=== PATIENT | male | born 1960 | race Caucasian/White ===

== ENCOUNTER 2019-10-22 12:03 | Inpatient (IN) | payer OTHER ==
[2019-10-22] VITALS (9 sets, daily range): BP systolic 119–165; BP diastolic 69–106; BMI 29.3
[~2019-10-22] VITALS: Ht 193 cm; Wt 109.0 kg
[2019-10-22] MEDS ORDERED: FLUTICASONE PRO16 GM NASAL (12:18)
[2019-10-22] MEDS ORDERED: ZYRTEC10 MG PO (12:18)
[2019-10-22 12:56] LABS: CALC OSMOLALITY 280 mosm/kg (275-300); CARBON DIOXIDE 23.8 mmol/L (21.0-32.0); CHLORIDE - SERUM 105 mmol/L (98-107); CREATININE - SERUM 0.8 mg/dL (0.6-1.3); GLUCOSE 125 mg/dL (74-106); HEMATOCRIT 38.4 % (42.0-54.0); HEMOGLOBIN 13.3 g/dL (13.5-17.5); LYMPHOCYTES 27.5 % (15-50); MCHC 34.6 g/dL (31.0-37.0); MEAN PLATELET VOLUME 9.8 fL (7.4-10.4); NEUTROPHILS 61.7 % (40-80); PLATELET COUNT 141 10x3/uL (130-400); POTASSIUM - SERUM 4.3 mmol/L (3.5-5.1); RBC 3.59 10x6/uL (4.20-6.10); RDW 16.6 % (11.5-14.5); SODIUM 140 mmol/L (136-145); UREA NITROGEN 14 mg/dL (7-18); WBC 8.8 10x3/uL (4.8-10.8); eGFR NON AFRICAN AMERICAN > 90 mL/min (90-120)
[2019-10-22 13:03] LABS: ALBUMIN 2.8 g/dL (3.4-5.0); ALKALINE PHOSPHATASE 173 U/L (30-120); ALT (SGPT) 80 U/L (10-68); PROTEIN - SERUM 7.3 g/dL (6.4-8.2)
[2019-10-22 13:41] LABS: AMYLASE - SERUM 46 U/L (25-115); CKMB 0.3 U/L (0.0-3.6); CREATINE KINASE 63 UL (21-232); LIPASE 176 U/L (73-393); MAGNESIUM - SERUM 1.7 mg/dL (1.8-2.4); TROPONIN-I < 0.017 ng/mL (0.000-0.060)
[2019-10-22 14:58] LABS: INR 1.49 (0.85-1.17); PROTIME 17.9 SECONDS (11.6-15.0)
[2019-10-22 18:06] LABS: HEMATOCRIT 37.9 % (42.0-54.0)
--- NOTE | 2019-10-22 19:00 | NUR ---
SHIFT ASSESSMENT COMPLETED. PT CARE ASSUMED. MONITORS ON AND WORKING, VITALS STABLE. PT AWAKE AND ALERT, DENIES ANY COMPLAINT OF PAIN OR DISCOMFORT AT THIS TIME. CALL LIGHT WITHIN REACH, WILL CONTINUE TO OBSERVE.
[2019-10-22 22:06] LABS: HEMATOCRIT 37.6 % (42.0-54.0); HEMOGLOBIN 12.8 g/dL (13.5-17.5)
--- NOTE | 2019-10-22 23:00 | NUR ---
PT UP TO BEDSIDE COMMODE, LARGE DARK LOOSE STOOL. PT ASSISTED BACK INTO BED, MONITORS ON AND WORKING, VITALS STABLE. CALL LIGHT WITHIN REACH, WILL CONTINUE TO OBSERVE. SEE FLOW SHEET FOR FURTHER DETAILS, WILL CONTINUE TO OBSERVE.
[2019-10-23] VITALS (14 sets, daily range): BP systolic 128–156; BP diastolic 72–102; Ht 193 cm; Wt 109.0 kg
--- NOTE | 2019-10-23 03:00 | NUR ---
PT LYING IN BED RESTING, MONITORS ON AND WORKING, VITALS STABLE. NO SIGNS/SYMPTOMS OF PAIN OR DISCOMFORT NOTED. NO N/V, NO BLEEDING. WILL CONTINUE TO OBSERVE.
[2019-10-23 04:16] LABS: % SATURATION 124 % (15-55); IRON 138 ug/dl (35-150); TOTAL IRON BIND CAPACITY 111 ug/dl (260-445)
--- NOTE | 2019-10-23 07:00 | NUR ---
ASSESSMENT COMPLETE PER FLOWSHEET. VOICES NO CO AT TIME. NPO FOR NOW. WILL CONTINUE TO MONITOR.
[2019-10-23 08:00] LABS: HEMATOCRIT 36.8 % (42.0-54.0); HEMOGLOBIN 12.5 g/dL (13.5-17.5); LYMPHOCYTES 12.6 % (15-50); MCH 34.6 pg (26.0-34.0); MCV 101.9 fL (80.0-100.0); MEAN PLATELET VOLUME 10.8 fL (7.4-10.4); NEUTROPHILS 79.1 % (40-80); PLATELET COUNT 96 10x3/uL (130-400); RBC 3.61 10x6/uL (4.20-6.10); RDW 21.9 % (11.5-14.5); WBC 7.4 10x3/uL (4.8-10.8)
[2019-10-23 08:03] LABS: CALCIUM 7.9 mg/dL (8.5-10.1); CARBON DIOXIDE 25.3 mmol/L (21.0-32.0); CHLORIDE - SERUM 109 mmol/L (98-107); POTASSIUM - SERUM 4.7 mmol/L (3.5-5.1); SODIUM 146 mmol/L (136-145); eGFR NON AFRICAN AMERICAN 81 mL/min (90-120)
[2019-10-23 08:05] LABS: CALC OSMOLALITY 298 mosm/kg (275-300); GLUCOSE 201 mg/dL (74-106); UREA NITROGEN 19 mg/dL (7-18)
[2019-10-23 08:09] LABS: ALBUMIN 2.8 g/dL (3.4-5.0); ALKALINE PHOSPHATASE 117 U/L (30-120); ALT (SGPT) 76 U/L (10-68); PHOSPHOROUS 2.9 mg/dL (2.5-4.9); PROTEIN - SERUM 6.6 g/dL (6.4-8.2)
[2019-10-23 08:10] LABS: MAGNESIUM - SERUM 2.2 mg/dL (1.8-2.4)
[2019-10-23 08:35] LABS: PLATELET ESTIMATE DECREASED
--- NOTE | 2019-10-23 09:00 | NUR ---
DR RIDDLE HERE OK FOR CLEAR LIQUIDS.
--- NOTE | 2019-10-23 12:00 | NUR ---
EATING JELLO. VOICES NO CO AT TIME. SR UP X 2.
--- NOTE | 2019-10-23 14:00 | NUR ---
TRANSFER ORDERS COMPLETE. VOICES NO CO TIME.
--- NOTE | 2019-10-23 17:41 | MORECARE ---
CASE MANAGEMENT DISCHARGE SUMMARY PATIENT: SID WOLF UNIT: [id number] ADM DATE: 10/22/19 AGE: 59 : 56 SEX: M ROOM/BED: D.2307 AUTHOR: GLENN,DOC PHYSICIAN: REFERRING PHYSICIAN: TOMMY WOODS MD DATE OF SERVICE: 10/23/19 Discharge Plan Patient Name: SID WOLF Facility: [facility]:[place] : 1960 Planned Disposition: Home Anticipated Discharge Date: Discharge Date: Expected LOS: Initial Reviewer: [email or web address] Initial Review Date: 10/22/2019 Generated: 10/23/19 6:41 pm Comments DCP- Discharge Planning Updated by [id number]: Charline Cm on 10/23/19 4:[address] Patient Name: SID WOLF Admission Status: Elective Accout number: [id number] Admission Date: 10-22-2019 : 1960 Admission Diagnosis: Attending: TOMMY WOODS Current LOS: 1 Anticipated DC Date: Planned Disposition: Home Primary Insurance: [employer]MINISTRATION Discharge Planning Comments: CM met with patient to complete initial dc planning assessment. CM educated patient on the CM role and verbal consent given by patient to complete assessment. Patient lives at with his . At discharge patient plans to return home and feels this is a safe discharge. CM discussed availability of home health, rehab services, and medical equipment. Patient denied known discharge needs at this time. CM will continue to follow and will assist as needed with dc plans/needs. Patient states that he has [employer]. Locate Technician: Charline Cm DCP- Discharge Planning Updated by [email or web address]: Charline Cm on 10/22/19 2:[address] [facility] states that the patient isn't showing in there system. CM will discuss with patient after he is more alert after sedation wears off. CM will continue to follow and assist as needed with discharge planning / needs. DCPIA - Discharge Planning Initial Assessment Updated by [id number]: Charline Cm on 10/23/19 5:38 pm * Is the patient Alert and Oriented? Yes * How many steps to enter\exit or inside your home? * PCP BRANDEN * Pharmacy [facility] * Preadmission Environment Home with Family * ADLs Independent * Equipment None * List name and contact numbers for known caregivers / representatives who currently or will assist patient after discharge: EDUARDO WOLF - SPOUSE - [phone] * Verbal permission to speak to the caregivers and representatives has been obtained from the patient. Yes * Community resources currently utilized None * Additional services required to return to the preadmission environment? No * Can the patient safely return to the preadmission environment? Yes * Has this patient been hospitalized within the prior 30 days at any hospital? No Patient Name: SID WOLF Page 20600 at 1741 All edits/amendments must be made on the electronic document DICTATION DATE: 10/23/191740 CUSTODIAN: ANGELES 10/23/191740 RPT#: [id number] DC DATE: STATUS: ADM IN [facility] [address] [place] [address] END OF REPORT
--- NOTE | 2019-10-23 17:58 | NUR ---
WATCHING TV. VOICES NO CO AT TIME.
[2019-10-23 18:19] LABS: HEMATOCRIT 33.5 % (42.0-54.0); HEMOGLOBIN 11.3 g/dL (13.5-17.5)
--- NOTE | 2019-10-23 18:54 | NUR ---
TRANSFER TO ROOM 2236. BATH GIVEN. IV RESITED TO L FA. IV TO R AC DCD WITH CATH INTACT.
[2019-10-24 01:42] VITALS: BP 131/78
[2019-10-24 05:14] LABS: BASOPHILS 0.3 % (0-2); EOSINOPHILS 1.4 % (0-7); HEMATOCRIT 30.8 % (42.0-54.0); HEMOGLOBIN 10.4 g/dL (13.5-17.5); IMMATURE GRANULOCYTES 0.2 % (0-5); LYMPHOCYTES 21.1 % (15-50); MCHC 33.8 g/dL (31.0-37.0); MCV 100.7 fL (80.0-100.0); MEAN PLATELET VOLUME 9.9 fL (7.4-10.4); MONOCYTES 11.5 % (2-11); NEUTROPHILS 65.5 % (40-80); PLATELET COUNT 95 10x3/uL (130-400); RBC 3.06 10x6/uL (4.20-6.10); RDW 20.2 % (11.5-14.5); WBC 8.6 10x3/uL (4.8-10.8)
[2019-10-24 06:14] LABS: ALBUMIN 2.3 g/dL (3.4-5.0); ALKALINE PHOSPHATASE 83 U/L (30-120); ALT (SGPT) 80 U/L (10-68); BILIRUBIN - TOTAL 3.75 mg/dL (0.2-1.3); CALC OSMOLALITY 279 mosm/kg (275-300); CALCIUM 7.4 mg/dL (8.5-10.1); CARBON DIOXIDE 26.2 mmol/L (21.0-32.0); CHLORIDE - SERUM 106 mmol/L (98-107); CREATININE - SERUM 0.8 mg/dL (0.6-1.3); GLUCOSE 113 mg/dL (74-106); MAGNESIUM - SERUM 2.1 mg/dL (1.8-2.4); PHOSPHOROUS 2.2 mg/dL (2.5-4.9); POTASSIUM - SERUM 3.7 mmol/L (3.5-5.1); PROTEIN - SERUM 5.6 g/dL (6.4-8.2); SODIUM 139 mmol/L (136-145); UREA NITROGEN 14 mg/dL (7-18); eGFR NON AFRICAN AMERICAN > 90 mL/min (90-120)
[2019-10-24 06:18] VITALS: BP 105/56
[2019-10-24 08:41] VITALS: BP 123/77
--- NOTE | 2019-10-24 09:16 | NUR ---
PT RESTING IN BED WITH EYES CLOSED. AWAKENS STAFF ENTERS ROOM. RESP EVEN AND UNLABORED. DENIES PAIN AT THIS TIME. IV TO LEFT AC WITH NS @ 125ML/HR INFUSING VIA PUMP, ALSO PROTONIX @ 10ML/HR. PT DENIES FURTHER NEEDS AT THIS TIME. CL WITHIN REACH. ENCOURAGED TO CALL WITH NEEDS. CONTINUE POC
[2019-10-24 12:25] VITALS: BP 122/79
[2019-10-24 17:29] VITALS: BP 125/82
[2019-10-24 18:07] LABS: HEMATOCRIT 36.5 % (42.0-54.0); HEMOGLOBIN 12.1 g/dL (13.5-17.5)
[2019-10-24 20:00] VITALS: BP 128/83
[2019-10-25 04:00] VITALS: BP 135/81
[2019-10-25 05:29] LABS: BASOPHILS 0.4 % (0-2); EOSINOPHILS 3.7 % (0-7); HEMATOCRIT 34.3 % (42.0-54.0); HEMOGLOBIN 11.5 g/dL (13.5-17.5); IMMATURE GRANULOCYTES 0.4 % (0-5); MCH 34.2 pg (26.0-34.0); MCHC 33.5 g/dL (31.0-37.0); MCV 102.1 fL (80.0-100.0); MEAN PLATELET VOLUME 10.1 fL (7.4-10.4); MONOCYTES 11.3 % (2-11); NEUTROPHILS 60.2 % (40-80); PLATELET COUNT 102 10x3/uL (130-400); RBC 3.36 10x6/uL (4.20-6.10); RDW 19.4 % (11.5-14.5); WBC 7.6 10x3/uL (4.8-10.8)
[2019-10-25 05:45] LABS: ALBUMIN 2.4 g/dL (3.4-5.0); ALKALINE PHOSPHATASE 96 U/L (30-120); ALT (SGPT) 94 U/L (10-68); BILIRUBIN - TOTAL 4.31 mg/dL (0.2-1.3); CALC OSMOLALITY 275 mosm/kg (275-300); CALCIUM 7.6 mg/dL (8.5-10.1); CARBON DIOXIDE 25.8 mmol/L (21.0-32.0); CHLORIDE - SERUM 106 mmol/L (98-107); CREATININE - SERUM 0.8 mg/dL (0.6-1.3); GLUCOSE 97 mg/dL (74-106); PHOSPHOROUS 2.5 mg/dL (2.5-4.9); POTASSIUM - SERUM 3.6 mmol/L (3.5-5.1); PROTEIN - SERUM 5.7 g/dL (6.4-8.2); SODIUM 139 mmol/L (136-145); eGFR NON AFRICAN AMERICAN > 90 mL/min (90-120)
[2019-10-25 05:46] LABS: UREA NITROGEN 8 mg/dL (7-18)
--- NOTE | 2019-10-25 07:50 | NUR ---
PT RESTING IN BED WATCHING TV. RESP EVEN AND UNLABORED. DENIES PAIN AT THIS TIME. PT ALERT AND ORIENTED X 4. PT VOICES WISHES TO GO HOME TODAY HE IS FEELING BETTER. IV TO LEFT WRIST WITH NS @ 125ML/HR INFUSING VIA PUMP. SALINE LOC TO LEFT FOREARM. SITES WITHOUT REDNESS OR EDEMA. PT DENIES FURTHER NEEDS AT THIS TIME. CL WITHIN REACH. ENCOURAGED TO CALL WITH NEEDS. CONTINUE POC
[2019-10-25] MEDS ORDERED: PROTONIX40 MG PO (09:25)
[2019-10-25 09:29] VITALS: BP 121/80
--- NOTE | 2019-10-25 10:53 | NUR ---
UPON ADMIT, PATIENT HAS NOT HAD A FLU SHOT. WHEN QUESTIONED FOR DISCHARGE, HE REFUSED IT.
--- NOTE | 2019-10-25 11:10 | NUR ---
discharge paperwork provided to pt. discussed s/s of illness when to return to ed, dr or contact pcp. pt voices understanding. educated pt regarding protonix, new prescription, discussing times and amounts to take daily. pt denies questions. saline loc d/c'd from left forearm and iv d/c'd from left wrist, caths intact. pt denies any questions or concerns at this time. awaiting ride for discharge.
[2019-10-25] MEDS ORDERED: LIBRIUM25 MG PO (11:14)
--- NOTE | 2019-10-25 11:41 | NUR ---
PT TAKEN OUT VIA W/C TO PRIVATE VEHICLE FOR DISCHARGE WITH ALL PERSONAL BELONGINGS.
--- NOTE | 2019-10-25 20:34 | MORECARE ---
CASE MANAGEMENT DISCHARGE SUMMARY PATIENT: SID WOLF UNIT: [id number] ADM DATE: 10/22/19 AGE: 59 : 56 SEX: M ROOM/BED: D.2236 AUTHOR: GLENN,DOC PHYSICIAN: REFERRING PHYSICIAN: TOMMY WOODS MD DATE OF SERVICE: 10/25/19 Discharge Plan Patient Name: SID WOLF Facility: [facility]:[place] : 1960 Planned Disposition: Home Anticipated Discharge Date: Discharge Date: 10/25/2019 Expected LOS: Initial Reviewer: [id number] Initial Review Date: 10/22/2019 Generated: 10/25/19 9:33 pm DCP- Discharge Planning Updated by [email or web address]: Charline Cm on 10/23/19 4:[address] Patient Name: SID WOLF Admission Status: Elective Accout number: [id number] Admission Date: 10-22-2019 : 1960 Admission Diagnosis: Attending: TOMMY WOODS Current LOS: 1 Anticipated DC Date: Planned Disposition: Home Primary Insurance: [employer]MINISTRATION Discharge Planning Comments: CM met with patient to complete initial dc planning assessment. CM educated patient on the CM role and verbal consent given by patient to complete assessment. Patient lives at with his . At discharge patient plans to return home and feels this is a safe discharge. CM discussed availability of home health, rehab services, and medical equipment. Patient denied known discharge needs at this time. CM will continue to follow and will assist as needed with dc plans/needs. Patient states that he has [employer]. Storage Administrator: Charline Cm DCP- Discharge Planning Updated by [id number]: Charline Cm on 10/22/19 2:[address] [facility] admission. [facility] states that the patient isn't showing in there system. CM will discuss with patient after he is more alert after sedation wears off. CM will continue to follow and assist as needed with discharge planning / needs. DCPIA - Discharge Planning Initial Assessment Updated by [email or web address]: Charline Cm on 10/23/19 5:38 pm * Is the patient Alert and Oriented? Yes * How many steps to enter\exit or inside your home? * PCP BRANDEN * Pharmacy [facility] * Preadmission Environment Home with Family * ADLs Independent * Equipment None * List name and contact numbers for known caregivers / representatives who currently or will assist patient after discharge: EDUARDO WOLF - SPOUSE - [phone] * Verbal permission to speak to the caregivers and representatives has been obtained from the patient. Yes * Community resources currently utilized None * Additional services required to return to the preadmission environment? No * Can the patient safely return to the preadmission environment? Yes * Has this patient been hospitalized within the prior 30 days at any hospital? No Last DP export: 10/23/19 4:41 p Patient Name: SID WOLF Page 08395 at 2034 All edits/amendments must be made on the electronic document DICTATION DATE: 10/25/192032 CATERING ADMINISTRATIVE ASSISTANT: ANGELES 10/25/192032 RPT#: [id number] DC DATE:10/25/19 STATUS: DIS IN [facility] [address] [place] [address] END OF REPORT
== END 2019-10-25 11:41 | disposition home or self-care (01) | DRG 432 ==
LOC: D.ER 12:03 → D.ICU 13:24 → D.MS 13:24
PROVIDERS: Family Medicine; Internal Medicine Gastroenterology; ADMIT Internal Medicine Nephrology; ATTEND Internal Medicine Nephrology
PROC: 0W3P8ZZ Control Bleeding in Gastrointestinal Tract, Via Natural or Artificial Opening Endoscopic (ICD-10-PCS; principal; 2019-10-22 14:00)
DX: K70.30 Alcoholic cirrhosis of liver without ascites (principal); I85.11 Secondary esophageal varices with bleeding; D62 Acute posthemorrhagic anemia; F10.29 Alcohol dependence with unspecified alcohol-induced disorder; E83.42 Hypomagnesemia

== ENCOUNTER 2019-11-03 17:22 | Inpatient (IN) | payer OTHER ==
[~2019-11-03] VITALS: Ht 193 cm; Wt 113.0 kg
[~2019-11-03 17:22] MED LIST: FLUTICASONE PRO16 GM NASAL; LIBRIUM25 MG PO; PROTONIX40 MG PO; ZYRTEC10 MG PO
[2019-11-03] MEDS ORDERED: FOLIC ACID1 MG PO (17:32)
[2019-11-03] MEDS ORDERED: VIT B 1 PO (17:32)
[2019-11-03 17:50] LABS: BASOPHILS 0.8 % (0-2); EOSINOPHILS 2.9 % (0-7); HEMATOCRIT 38.8 % (42.0-54.0); HEMOGLOBIN 13.1 g/dL (13.5-17.5); IMMATURE GRANULOCYTES 0.1 % (0-5); LYMPHOCYTES 21.6 % (15-50); MCH 35.5 pg (26.0-34.0); MCHC 33.8 g/dL (31.0-37.0); MCV 105.1 fL (80.0-100.0); MEAN PLATELET VOLUME 9.2 fL (7.4-10.4); MONOCYTES 9.7 % (2-11); NEUTROPHILS 64.9 % (40-80); PLATELET COUNT 183 10x3/uL (130-400); RBC 3.69 10x6/uL (4.20-6.10); RDW 18.9 % (11.5-14.5); WBC 7.2 10x3/uL (4.8-10.8)
[2019-11-03 18:05] LABS: CALC OSMOLALITY 272 mosm/kg (275-300); CALCIUM 8.2 mg/dL (8.5-10.1); CARBON DIOXIDE 25.8 mmol/L (21.0-32.0); CHLORIDE - SERUM 104 mmol/L (98-107); GLUCOSE 129 mg/dL (74-106); POTASSIUM - SERUM 3.8 mmol/L (3.5-5.1); SODIUM 137 mmol/L (136-145); UREA NITROGEN 5 mg/dL (7-18); eGFR NON AFRICAN AMERICAN 81 mL/min (90-120)
[2019-11-03 18:18] LABS: ALBUMIN 2.7 g/dL (3.4-5.0); ALKALINE PHOSPHATASE 137 U/L (30-120); ALT (SGPT) 63 U/L (10-68); AMYLASE - SERUM 33 U/L (25-115); BILIRUBIN - TOTAL 3.69 mg/dL (0.2-1.3); LIPASE 75 U/L (73-393); PRO BNP 125 pg/mL (0-125); PROTEIN - SERUM 6.6 g/dL (6.4-8.2); TROPONIN-I < 0.017 ng/mL (0.000-0.060)
[2019-11-03 19:42] LABS: BILIRUBIN NEGATIVE (NEGATIVE); GLUCOSE NEGATIVE (NEGATIVE); KETONE NEGATIVE (NEGATIVE); NITRITE NEGATIVE (NEGATIVE); SPECIFIC GRAVITY 1.015 (1.005-1.020); UROBILINOGEN NORMAL (NORMAL)
[2019-11-03 21:14] VITALS: BP 155/82
--- NOTE | 2019-11-03 22:01 | NUR ---
PT TO ROOM 2109 ACCOMPANIED BY HOSPITAL STAFF.
[2019-11-03 23:16] VITALS: BP 155/82; BMI 30.3
[2019-11-04 05:07] LABS: BASOPHILS 0.9 % (0-2); EOSINOPHILS 3.9 % (0-7); HEMATOCRIT 36.5 % (42.0-54.0); HEMOGLOBIN 12.3 g/dL (13.5-17.5); IMMATURE GRANULOCYTES 0.1 % (0-5); LYMPHOCYTES 23.1 % (15-50); MCH 34.7 pg (26.0-34.0); MCHC 33.7 g/dL (31.0-37.0); MEAN PLATELET VOLUME 9.6 fL (7.4-10.4); MONOCYTES 8.8 % (2-11); NEUTROPHILS 63.2 % (40-80); PLATELET COUNT 190 10x3/uL (130-400); RBC 3.54 10x6/uL (4.20-6.10); RDW 18.7 % (11.5-14.5); WBC 6.9 10x3/uL (4.8-10.8)
[2019-11-04 05:19] LABS: MCV 103.1 fL (80.0-100.0)
[2019-11-04 05:23] LABS: INR 1.9 (0.85-1.17); PROTIME 21.5 SECONDS (11.6-15.0)
[2019-11-04 05:24] LABS: CALC OSMOLALITY 268 mosm/kg (275-300); CALCIUM 7.9 mg/dL (8.5-10.1); CARBON DIOXIDE 25.9 mmol/L (21.0-32.0); CHLORIDE - SERUM 104 mmol/L (98-107); GLUCOSE 93 mg/dL (74-106); MAGNESIUM - SERUM 1.8 mg/dL (1.8-2.4); PHOSPHOROUS 3.2 mg/dL (2.5-4.9); POTASSIUM - SERUM 3.4 mmol/L (3.5-5.1); SODIUM 136 mmol/L (136-145); UREA NITROGEN 4 mg/dL (7-18); eGFR NON AFRICAN AMERICAN 81 mL/min (90-120)
[2019-11-04 08:22] VITALS: BP 116/78
[2019-11-04 12:18] VITALS: Ht 193 cm; Wt 113.0 kg
--- NOTE | 2019-11-04 12:38 | MORECARE ---
CASE MANAGEMENT DISCHARGE SUMMARY PATIENT: SID WOLF UNIT: [id number] ADM DATE: 11/03/19 AGE: 59 : 56 SEX: M ROOM/BED: D.2109 AUTHOR: MERRILL ELIZABETH PHYSICIAN: REFERRING PHYSICIAN: DANAY BLAIR MD DATE OF SERVICE: 11/04/19 Discharge Plan Patient Name: SID WOLF [facility] [facility] 1960 Planned Disposition: Intermediate Facility Anticipated Discharge Date: Discharge Date: Expected LOS: Initial Reviewer: [email or web address] Initial Review Date: 11/04/2019 Generated: 11/04/19 1:38 pm DCPIA - Discharge Planning Initial Assessment Updated by [email or web address]: Josh Quinteros on 11/04/19 12:35 pm * Is the patient Alert and Oriented? Yes * How many steps to enter\exit or inside your home? 2--I * PCP DR. OTERO * Pharmacy [facility] * Preadmission Environment Home with Family * ADLs Independent * Equipment Rolling Walker * Other Equipment ROLLATOR WALKER - NO MEDICAL EQUIPMENT PROVIDER PREFERENCE * List name and contact numbers for known caregivers / representatives who currently or will assist patient after discharge: EDUARDO WOLF, SPOUSE, * Verbal permission to speak to the caregivers and representatives has been obtained from the patient. Yes * Community resources currently utilized None * Please name any agencies selected above. NONE * Additional services required to return to the preadmission environment? Yes * Can the patient safely return to the preadmission environment? Yes * Has this patient been hospitalized within the prior 30 days at any hospital? Yes Patient Name: SID WOLF Page 19323 at 1238 All edits/amendments must be made on the electronic document DICTATION DATE: 11/04/19 1238 ASSOCIATE PROFESSOR OF PSYCHOLOGY: ANGELES 11/04/19 1238 RPT#: [id number] DC DATE: STATUS: ADM IN [facility] [address] [place] [address] END OF REPORT
--- NOTE | 2019-11-04 12:45 | MORECARE ---
CASE MANAGEMENT DISCHARGE SUMMARY PATIENT: SID WOLF UNIT: [id number] ADM DATE: 11/03/19 AGE: 59 : 56 SEX: M ROOM/BED: D.2106 AUTHOR: GLENN,DOC PHYSICIAN: REFERRING PHYSICIAN: DANAY BLAIR MD DATE OF SERVICE: 11/04/19 Discharge Plan Patient Name: SID WOLF Facility: [facility]:[place] : 1960 Planned Disposition: Prison Facility Anticipated Discharge Date: Discharge Date: Expected LOS: Initial Reviewer: [email or web address] Initial Review Date: 11/04/2019 Generated: 11/04/19 1:45 pm Comments DCP- Discharge Planning Updated by [id number]: Josh Quinteros on 11/04/19 11:[address] Patient Name: SID WOLF Admission Status: ER Accout number: [id number] Admission Date: 11-03-2019 : 1960 Admission Diagnosis: Attending: JOSE Current LOS: 1 Anticipated DC Date: Planned Disposition: Prison Facility Primary Insurance: [employer] PLANNED EXTERNAL PROVIDER PREFERENCE: [facility], SKILLED REHAB BED - Discharge Planning Comments: CM SPOKE TO PHYSICAL THERAPIST WHO INFORMED CM THAT PT NEEDS REHAB PLACEMENT. CM MET WITH PT IN ROOM TO DISCUSS DISCHARGE PLANNING AND NEEDS. PT REPORTS LIVING AT HOME INDEPENDENTLY WITH HIS . PT HAS ROLLATOR WALKER WITH NO MEDICAL EQUIPMENT PROVIDER PREFERENCE. PT HAS NO OUTSIDE SERVICES ASSISTING IN THE HOME. CM DISCUSSED AVAILABILITY OF HOME HEALTH, REHAB SERVICES AND MEDICAL EQUIPMENT. [facility] VERY CLOSE [facility] HIS HOME. CM DISCUSSED THAT PT CANNOT HAVE VISITORS AT ANY REHAB AT THIS TIME. PT REPORTS UNDERSTANDING. CM NOTIFIED PT'S SPOUSE VIA PHONE, , THAT IF ACCEPTED FOR REHAB, PT MAY NOT HAVE VISITORS DURING PLACEMENT AT [facility]. PT'S SPOUSE REPORTS UNDERSTANDING AND AGREEMENT. CM NOTIFIED [facility]ITA GENAO OF [facility] [place], , OF REHAB REFERRAL. CM FAXED REFERRAL TO [facility] [place] VIA [facility] AT [phone]. CM WAITING ADMISSION DETERMINATION FROM [facility]. Substitute Bus Driver: Josh Quinteros DCPIA - Discharge Planning Initial Assessment Updated by [email or web address]: Josh Quinteros on 11/04/19 12:35 pm * Is the patient Alert and Oriented? Yes * How many steps to enter\exit or inside your home? 2--I * PCP DR. OTERO * Pharmacy [facility] [address] * Preadmission Environment Home with Family * ADLs Independent * Equipment Rolling Walker * Other Equipment ROLLATOR WALKER - NO MEDICAL EQUIPMENT PROVIDER PREFERENCE * List name and contact numbers for known caregivers / representatives who currently or will assist patient after discharge: EDUARDO WOLF, SPOUSE, * Verbal permission to speak to the caregivers and representatives has been obtained from the patient. Yes * Community resources currently utilized None * Please name any agencies selected above. NONE * Additional services required to return to the preadmission environment? Yes * Can the patient safely return to the preadmission environment? Yes * Has this patient been hospitalized within the prior 30 days at any hospital? Yes Last DP export: 11/04/19 11:38 am Patient Name: SID WOLF Page 83452 at 1245 All edits/amendments must be made on the electronic document DICTATION DATE: 11/04/191244 MANAGEMENT PROFESSIONALS: ANGELES 11/04/19 1245 RPT#: [id number] DC DATE: STATUS: ADM IN [facility] [address] [place] [address] END OF REPORT
--- NOTE | 2019-11-04 12:58 | MORECARE ---
CASE MANAGEMENT DISCHARGE SUMMARY PATIENT: SID WOLF UNIT: [id number] ADM DATE: 11/03/19 AGE: 59 : 56 SEX: M ROOM/BED: D.2106 AUTHOR: GLENN,DOC PHYSICIAN: REFERRING PHYSICIAN: DANAY BLAIR MD DATE OF SERVICE: 11/04/19 Discharge Plan Patient Name: SID WOLF Facility: [facility]:[place] : 1960 Planned Disposition: Intermediate Facility Anticipated Discharge Date: Discharge Date: Expected LOS: Initial Reviewer: [email or web address] Initial Review Date: 11/04/2019 Generated: 11/04/19 1:57 pm Comments DCP- Discharge Planning Updated by [email or web address]: Josh Quinteros on 11/04/19 11:[address] Patient Name: SID WOLF Admission Status: ER Accout number: [id number] Admission Date: 11-03-2019 : 1960 Admission Diagnosis: Attending: JOSE Current LOS: 1 Anticipated DC Date: Planned Disposition: Intermediate Facility Primary Insurance: [employer] PLANNED EXTERNAL PROVIDER PREFERENCE: [facility], SKILLED REHAB BED - Discharge Planning Comments: CM SPOKE TO PHYSICAL THERAPIST WHO INFORMED CM THAT PT NEEDS REHAB PLACEMENT. CM MET WITH PT IN ROOM TO DISCUSS DISCHARGE PLANNING AND NEEDS. PT REPORTS LIVING AT HOME INDEPENDENTLY WITH HIS . PT HAS ROLLATOR WALKER WITH NO MEDICAL EQUIPMENT PROVIDER PREFERENCE. PT HAS NO OUTSIDE SERVICES ASSISTING IN THE HOME. CM DISCUSSED AVAILABILITY OF HOME HEALTH, REHAB SERVICES AND MEDICAL EQUIPMENT. [facility] HIS HOME. CM DISCUSSED THAT PT CANNOT HAVE VISITORS AT ANY REHAB AT THIS TIME. PT REPORTS UNDERSTANDING. CM NOTIFIED PT'S SPOUSE VIA PHONE, , THAT IF ACCEPTED FOR REHAB, PT MAY NOT HAVE VISITORS DURING PLACEMENT AT [facility]. PT'S SPOUSE REPORTS UNDERSTANDING AND AGREEMENT. CM NOTIFIED DONITA GENAO OF [facility], , OF REHAB REFERRAL. CM FAXED REFERRAL TO [facility]IA [facility] AT [phone]. CM WAITING ADMISSION DETERMINATION FROM [facility]. Woods Overseer: Josh Quinteros DCPIA - Discharge Planning Initial Assessment Updated by [email or web address]: Josh Quinteros on 11/04/19 12:35 pm * Is the patient Alert and Oriented? Yes * How many steps to enter\exit or inside your home? 2--I * PCP DR. OTERO * Pharmacy [facility] [address] * Preadmission Environment Home with Family * ADLs Independent * Equipment Rolling Walker * Other Equipment ROLLATOR WALKER - NO MEDICAL EQUIPMENT PROVIDER PREFERENCE * List name and contact numbers for known caregivers / representatives who currently or will assist patient after discharge: EDUARDO WOLF, SPOUSE, * Verbal permission to speak to the caregivers and representatives has been obtained from the patient. Yes * Community resources currently utilized None * Please name any agencies selected above. NONE * Additional services required to return to the preadmission environment? Yes * Can the patient safely return to the preadmission environment? Yes * Has this patient been hospitalized within the prior 30 days at any hospital? Yes External Providers External Provider: [facility] Next Contact Date: 11/04/2019 Service Request Date: Service Type: Resolution: Reviewer: Comments: Coverage Notice Reviewer: [id number] - Josh Quinteros Notice Issued Date-Time: 11/04/2019 11:05 Notice Type: Patient Choice Letter Notice Delivered To: Patient Relationship to Patient: Mill Laborer Name: Delivery Method: HAND - Hand Delivered Laura Days: Prior Verbal Notification: Recipient Understood Notice: Yes Recipient Signature: Yes Med Rec Note Co-signed by Attending: Coverage Notice Comment: [facility] Last DP export: 11/04/19 11:45 am Patient Name: SID WOLF Page 69039 at 1258 All edits/amendments must be made on the electronic document DICTATION DATE: 11/04/19 1258 TOWN CLERK: ANGELES 11/04/19 1254 RPT#: [id number] DC DATE: STATUS: ADM IN [facility] [address] [place] [address] END OF REPORT
--- NOTE | 2019-11-04 14:00 | NUR ---
CALLED IR FOR UPDATE REGARDING PLAN FOR PROCEDURE. NO ANSWERS OBTAINED.
[2019-11-04 14:58] VITALS: BP 110/67
--- NOTE | 2019-11-04 16:00 | NUR ---
ALERT AND ORIENTED X4. SITTING UP IN BED. CONSENTS FOR PROCEDURE SIGNED ON CHART. TAKEN TO PROCEDURE VIA BED. CONTINUE PLAN OF CARE AND SAFETY PRECAUTIONS.
[2019-11-04 16:58] VITALS: BP 126/76
[2019-11-04 17:13] VITALS: BP 126/76
--- NOTE | 2019-11-04 17:13 | NUR ---
RETURN BACK TO ROOM VIA BED FROM PROCEDURE. RT FLANK INCISION CLEAN DRY INTACT. FREE FROM BLEEDING. BP-126/76, HR-81, R-16, O2-94% RA. DINNER TRAY ORDERED. DENIES ANY OTHER NEEDS AT THIS TIME. CONTINUE PLAN OF CARE AND SAFETY PRECAUTIONS.
[2019-11-04 17:28] VITALS: BP 127/75
[2019-11-04 20:43] VITALS: BP 96/55
--- NOTE | 2019-11-05 00:53 | NUR ---
RESTING WITH EYES CLOSED, RESPERATIONS EVEN, NO S/S DISTRESS NOTED.
--- NOTE | 2019-11-05 07:10 | NUR ---
REPORT RECEIVED FROM FOOD AND NUTRITION SERVICES ASSISTANT AND PATIENT CARE ASSUMED. PATIENT LAYING IN BED AWAKE, ALERT AND ORIENTED X 4. PATIENT IS STABLE AND VSS. PATIENT DENIES ANY NEEDS OR PAIN. WILL CONTINUE WITH PLAN OF CARE. SR UPX 2 BED IN LOW POSITION AND CALL LIGHT IN REACH.
[2019-11-05 09:42] VITALS: BP 104/62
--- NOTE | 2019-11-05 09:53 | NUR ---
ADMINISTERED MEDICATION, NO DIFFICULTY SWALLOWING. PT RESTING COMFORTABLY IN BED. DENIES ANY NEEDS AT THIS TIME. WILL CONTINUE TO MONITOR.
--- NOTE | 2019-11-05 12:27 | NUR ---
PT IS RESTING COMFORTABLY IN BED, HAD BRIEF MOMENT OF CONFUSION. PT LOC IS STABLE. DENIES ANY NEEDS. CALL LIGHT WITHIN REACH. WILL CONTINUE TO MONITOR.
--- NOTE | 2019-11-05 13:20 | NUR ---
OT NOTE: PT REPORTS THAT HE FEELS MUCH BETTER TODAY. AMB IN HALLWAY WITH MIN ASSIST, GAIT BELT, AND WALKER. PTS BALANCE MUCH BETTER TODAY VS YESTERDAY; AMB GREATER THAN 100 FT TO IMPROVE FUNCTIONAL ENDURANCE AND BALANCE. ABLE TO PERFORM TOILETING WITH SBA AND USE OF WALKER; ABLE TO SUKHJINDER GOWN AND SHOES WITH SET UP. BED MOB INDEP. [phone]
[2019-11-05] MEDS ORDERED: LASIX40 MG PO (13:45)
[2019-11-05] MEDS ORDERED: ALDACTONE25 MG PO (13:45)
[2019-11-05] MEDS ORDERED: K-DUR20 MEQ PO (13:45)
--- NOTE | 2019-11-05 14:24 | MORECARE ---
CASE MANAGEMENT DISCHARGE SUMMARY PATIENT: SID WOLF UNIT: [id number] ADM DATE: 11/04/19 AGE: 59 : 56 SEX: M ROOM/BED: D.2102 AUTHOR: GLENN,DOC PHYSICIAN: REFERRING PHYSICIAN: DANAY BLAIR MD DATE OF SERVICE: 11/05/19 Discharge Plan Patient Name: SID WOLF Facility: [facility]:[place] : 1960 Planned Disposition: Custodial Facility Anticipated Discharge Date: Discharge Date: Expected LOS: Initial Reviewer: [email or web address] Initial Review Date: 11/04/2019 Generated: 11/05/19 3:23 pm DCP- Discharge Planning Updated by [email or web address]: Josh Quinteros on 11/04/19 11:[address] Patient Name: SID WOLF Admission Status: ER Accout number: [id number] Admission Date: 11-03-2019 : 1960 Admission Diagnosis: Attending: JOSE Current LOS: 1 Anticipated DC Date: Planned Disposition: Custodial Facility Primary Insurance: [employer] PLANNED EXTERNAL PROVIDER PREFERENCE: [facility], SKILLED REHAB BED - Discharge Planning Comments: CM SPOKE TO PHYSICAL THERAPIST WHO INFORMED CM THAT PT NEEDS REHAB PLACEMENT. CM MET WITH PT IN ROOM TO DISCUSS DISCHARGE PLANNING AND NEEDS. PT REPORTS LIVING AT HOME INDEPENDENTLY WITH HIS . PT HAS ROLLATOR WALKER WITH NO MEDICAL EQUIPMENT PROVIDER PREFERENCE. PT HAS NO OUTSIDE SERVICES ASSISTING IN THE HOME. CM DISCUSSED AVAILABILITY OF HOME HEALTH, REHAB SERVICES AND MEDICAL EQUIPMENT. [facility] HIS HOME. CM DISCUSSED THAT PT CANNOT HAVE VISITORS AT ANY REHAB AT THIS TIME. PT REPORTS UNDERSTANDING. CM NOTIFIED PT'S SPOUSE VIA PHONE, , THAT IF ACCEPTED FOR REHAB, PT MAY NOT HAVE VISITORS DURING PLACEMENT AT [facility]. PT'S SPOUSE REPORTS UNDERSTANDING AND AGREEMENT. CM NOTIFIED DONITA GENAO OF [facility], , OF REHAB REFERRAL. CM FAXED REFERRAL TO [facility] VIA [facility] AT [phone]. CM WAITING ADMISSION DETERMINATION FROM [facility]. Recruitment Specialist: Josh Quinteros DCPIA - Discharge Planning Initial Assessment Updated by [email or web address]: Josh Quinteros on 11/04/19 12:35 pm * Is the patient Alert and Oriented? Yes * How many steps to enter\exit or inside your home? 2--I * PCP DR. OTERO * Pharmacy [facility] ON [address] * Preadmission Environment Home with Family * ADLs Independent * Equipment Rolling Walker * Other Equipment ROLLATOR WALKER - NO MEDICAL EQUIPMENT PROVIDER PREFERENCE * List name and contact numbers for known caregivers / representatives who currently or will assist patient after discharge: EDUARDO WOLF, SPOUSE, * Verbal permission to speak to the caregivers and representatives has been obtained from the patient. Yes * Community resources currently utilized None * Please name any agencies selected above. NONE * Additional services required to return to the preadmission environment? Yes * Can the patient safely return to the preadmission environment? Yes * Has this patient been hospitalized within the prior 30 days at any hospital? Yes External Providers External Provider: [facility] Next Contact Date: Service Request Date: Service Type: Resolution: Reviewer: Comments: Coverage Notice Reviewer: [email or web address] - Josh Quinteros Notice Issued Date-Time: 11/04/2019 11:05 Notice Type: Patient Choice Letter Notice Delivered To: Patient Relationship to Patient: Service Center Representative Name: Delivery Method: HAND - Hand Delivered Laura Days: Prior Verbal Notification: Recipient Understood Notice: Yes Recipient Signature: Yes Med Rec Note Co-signed by Attending: Coverage Notice Comment: [facility] Last DP export: 11/04/19 11:58 am Patient Name: SID WOLF Page 67931 at 1424 All edits/amendments must be made on the electronic document DICTATION DATE: 11/05/19 1423 EXPERIMENTAL WORKER: ANGELES 11/05/19 1423 RPT#: [id number] [place] DATE: STATUS: ADM IN [facility] [address] [place] [address] END OF REPORT
--- NOTE | 2019-11-05 15:07 | NUR ---
PT IS RESTING IN BED, WAS SPEAKING ON THE PHONE. PT REFUSED [facility]. AGREED TO HOME HEALTH. AWAITING HOME HEALTH CONSULT TO BE ABLE TO DISHCARGE. DENIES ANY NEEDS. CALL LIGHT WITHIN REACH. WILL CONTINUE TO MONITOR.
--- NOTE | 2019-11-05 15:51 | NUR ---
OT NOTE: (DOS 11/04/2019) PT COMPLETED BED MOB WITH SBA. PT COMPLETED SIT TO STAND WITH SBA/CGA. PT EXIBITED POOR SAFETY AWARENESS. PT COMPLETED TOILETING TASKS WITH MOD A. [phone] THANK YOU,LORI BENAVIDEZ
--- NOTE | 2019-11-05 16:12 | NUR ---
PT RESTING IN BED WITH EYES CLOSED. WAITIN FOR DISCHARGE PAPERS TO BE FINISHED. BED IN LOWEST POSITION, BED RAILS X2, CALL LIGHT WITHIN REACH. WILL CONTINUE TO MONITOR.
--- NOTE | 2019-11-05 17:00 | NUR ---
DC PT IV FROM LEFT AC, TIP INTACT. TOLERATED WELL. COVERED WITH 2X2 AND TAPE. HELPED PT DRESS AND WHEELED HIM TO ER EXIT WHERE HIS PICKED HIM UP.
--- NOTE | 2019-11-05 17:05 | NUR ---
OT NOTE: PT EXHIBITED POOR SAFETY AWARENESS. AT END OF THERAPY SESSION, WITH NURSING ASSISTANCE A BED ALARM WAS PLACED. PT COMPLETED BED MOB WITH SBA. PT COMPLETED STANDING WITH MIN A. PT REQUIRED MAX VERBAL CUES FOR INCREASED SAFETY. PT IS CONFUSED AND DOES NOT ADHERE TO CAUTION WITH DYNAMIC ACTIVITIS. PT EDUCATED TO USE CALL LIGHT. NUSING PRESENT DURING EDUCATION.PT COMPLETED TOILETING TASKS WITH MIN A. PT COMPLETED UB HYGIENE TASKS WITH MIN A. [phone] THANK YOU,LORI BENAVIDEZ
--- NOTE | 2019-11-05 17:15 | MORECARE ---
CASE MANAGEMENT DISCHARGE SUMMARY PATIENT: SID WOLF UNIT: [id number] ADM DATE: 11/04/19 AGE: 59 : 56 SEX: M ROOM/BED: D.2106 AUTHOR: GLENN,DOC PHYSICIAN: REFERRING PHYSICIAN: DANAY BLAIR MD DATE OF SERVICE: 11/05/19 Discharge Plan Patient Name: SID WOLF Facility: [facility]:[place] : 1960 Planned Disposition: [facility] Facility Anticipated Discharge Date: Discharge Date: Expected LOS: Initial Reviewer: [id number] Initial Review Date: 11/04/2019 Generated: 11/05/19 6:14 pm Comments DCP- Discharge Planning Updated by [email or web address]: Yadira Farmer on 11/05/19 4:[address] Patient Name: SID WOLF Encounter No: [id number] : 1960 Primary Insurance: [employer] Anticipated DC Date: Planned Disposition: [facility] Facility External Planned Provider: : DCP follow-up note: 11/05/2019 CM SPOKE WITH PATIENT AND ABOUT DC PLAN. THE PATIENT DOES NOT WANT TO GO TO A SN REHAB, STATES HE WALKS GREAT. EDUARDO (SPOUSE) STATES SHE CAN NOT CARE FOR HIM AT HOME. STATES HE IS FALLING AT HOME, AND SHE IS UNABLE TO PROVIDE 24 HOUR CARE THAT HE NEEDS. PT CONSULT STATES THE PATIENT CAN BE STABILIZED AT HOME. SPOKE WITH FAMILY ABOUT PAID CARE GIVERS. EDUARDO STATES SHE IS NOT ABLE TO PAY FOR THAT SERVICE AT THIS TIME. STATED TO EDUARDO THAT IS SHE IS NOT ABLE TO PROVIDE 24 HOUR CARE, THE PATIENT MAY NEED A HIGHER LEVEL OF CARE. EDUARDO STATED SHE WILL ATTEMT TO USE HH. MIL SIGNED FOR [place]. SPOKE WITH DALTON AT [facility] AND FAXED OVER A REFERRAL. PATIENT AND ARE IN AGREEMENT WITH DC PLAN. CALLED [facility]ITA WITH NEW DC PLAN. YADIRA FARMER MSN,RN,CM .CM SPOKE TO PHYSICAL THERAPIST WHO INFORMED CM THAT PT NEEDS REHAB PLACEMENT. CM MET WITH PT IN ROOM TO DISCUSS DISCHARGE PLANNING AND NEEDS. PT REPORTS LIVING AT HOME INDEPENDENTLY WITH HIS . PT HAS ROLLATOR WALKER WITH NO MEDICAL EQUIPMENT PROVIDER PREFERENCE. PT HAS NO OUTSIDE SERVICES ASSISTING IN THE HOME. CM DISCUSSED AVAILABILITY OF HOME HEALTH, REHAB SERVICES AND MEDICAL EQUIPMENT. PT [facility]S REHAB AT [facility] IT IS VERY CLOSE TO HIS HOME. CM DISCUSSED THAT PT CANNOT HAVE VISITORS AT ANY REHAB AT THIS TIME. PT REPORTS UNDERSTANDING. CM NOTIFIED PT'S SPOUSE VIA PHONE, , THAT IF ACCEPTED FOR REHAB, PT MAY NOT HAVE VISITORS DURING PLACEMENT AT [facility]. PT'S SPOUSE REPORTS UNDERSTANDING AND AGREEMENT. CM NOTIFIED DONITA GENAO OF [facility], , OF REHAB REFERRAL. CM FAXED REFERRAL TO [facility] VIA [employer] [facility] AT [phone]. CM WAITING ADMISSION DETERMINATION FROM [facility].Yadira Farmer DCP- Discharge Planning Updated by [id number]: Josh Quinteros on 11/04/19 11:[address] Patient Name: SID WOLF Admission Status: ER Accout number: [id number] Admission Date: 11-03-2019 : 1960 Admission Diagnosis: Attending: JOSE Current LOS: 1 Anticipated DC Date: Planned Disposition: [facility] Facility Primary Insurance: [employer] PLANNED EXTERNAL PROVIDER PREFERENCE: [facility] AND [facility], SKILLED REHAB BED - Discharge Planning Comments: CM SPOKE TO PHYSICAL THERAPIST WHO INFORMED CM THAT PT NEEDS REHAB PLACEMENT. CM MET WITH PT IN ROOM TO DISCUSS DISCHARGE PLANNING AND NEEDS. PT REPORTS LIVING AT HOME INDEPENDENTLY WITH HIS . PT HAS ROLLATOR WALKER WITH NO MEDICAL EQUIPMENT PROVIDER PREFERENCE. PT HAS NO OUTSIDE SERVICES ASSISTING IN THE HOME. CM DISCUSSED AVAILABILITY OF HOME HEALTH, REHAB SERVICES AND MEDICAL EQUIPMENT. PT WANTS REHAB AT [facility] AND [facility] IT IS VERY CLOSE TO HIS HOME. CM DISCUSSED THAT PT CANNOT HAVE VISITORS AT ANY REHAB AT THIS TIME. PT REPORTS UNDERSTANDING. CM NOTIFIED PT'S SPOUSE VIA PHONE, , THAT IF ACCEPTED FOR REHAB, PT MAY NOT HAVE VISITORS DURING PLACEMENT AT [facility]. PT'S SPOUSE REPORTS UNDERSTANDING AND AGREEMENT. CM NOTIFIED DONITA GENAO OF [facility], , OF REHAB REFERRAL. CM FAXED REFERRAL TO [facility]IA [facility] AT [phone]. CM WAITING ADMISSION DETERMINATION FROM [facility]. Edger Tailer: Josh Quinteros DCPIA - Discharge Planning Initial Assessment Updated by [id number]: Josh Quinteros on 11/04/19 12:35 pm * Is the patient Alert and Oriented? Yes * How many steps to enter\exit or inside your home? 2--I * PCP DR. OTERO * Pharmacy [facility] ON [address] * Preadmission Environment Home with Family * ADLs Independent * Equipment Rolling Walker * Other Equipment ROLLATOR WALKER - NO MEDICAL EQUIPMENT PROVIDER PREFERENCE * List name and contact numbers for known caregivers / representatives who currently or will assist patient after discharge: EDUARDO WOLF, SPOUSE, * Verbal permission to speak to the caregivers and representatives has been obtained from the patient. Yes * Community resources currently utilized None * Please name any agencies selected above. NONE * Additional services required to return to the preadmission environment? Yes * Can the patient safely return to the preadmission environment? Yes * Has this patient been hospitalized within the prior 30 days at any hospital? Yes Coverage Notice Reviewer: [id number] - Josh Quinteros Notice Issued Date-Time: 11/04/2019 11:05 Notice Type: Patient Choice Letter Notice Delivered To: Patient Relationship to Patient: Ticket Dispenser Changer Name: Delivery Method: HAND - Hand Delivered Laura Days: Prior Verbal Notification: Recipient Understood Notice: Yes Recipient Signature: Yes Med Rec Note Co-signed by Attending: Coverage Notice Comment: [facility] Last DP export: 11/05/19 1:24 pm Patient Name: SID WOLF Page 75576 at 1715 All edits/amendments must be made on the electronic document DICTATION DATE: 11/05/191713 RAILROAD CAR CLEANING SUPERVISOR: ANGELES 11/05/191713 RPT#: [id number] DC DATE: STATUS: ADM IN [facility] [address] [place] [address] END OF REPORT
--- NOTE | 2019-11-07 08:26 | MORECARE ---
CASE MANAGEMENT DISCHARGE SUMMARY PATIENT: SID WOLF UNIT: [id number] ADM DATE: 11/04/19 AGE: 59 : 56 SEX: M ROOM/BED: D.2106 AUTHOR: GLENNDOC PHYSICIAN: REFERRING PHYSICIAN: DANAY BLAIR MD DATE OF SERVICE: 11/07/19 Discharge Plan Patient Name: SID WOLF Facility: [facility]:[place] : 1960 Planned Disposition: Senior Living Facility Anticipated Discharge Date: Discharge Date: 11/05/2019 Expected LOS: Initial Reviewer: [email or web address] Initial Review Date: 11/04/2019 Generated: 11/07/19 9:25 am Comments DCP- Discharge Planning Updated by [id number]: Yadira Farmer on 11/05/19 4:[address] Patient Name: SID WOLF Encounter No: [id number] : 1960 Primary Insurance: [employer] Anticipated DC Date: Planned Disposition: Senior Living Facility External Planned Provider: : DCP follow-up note: 11/05/2019 CM SPOKE WITH PATIENT AND ABOUT DC PLAN. THE PATIENT DOES NOT WANT TO GO TO A SN REHAB, STATES HE WALKS GREAT. EDUARDO (SPOUSE) STATES SHE CAN NOT CARE FOR HIM AT HOME. STATES HE IS FALLING AT HOME, AND SHE IS UNABLE TO PROVIDE 24 HOUR CARE THAT HE NEEDS. PT CONSULT STATES THE PATIENT CAN BE STABILIZED AT HOME. SPOKE WITH FAMILY ABOUT PAID CARE GIVERS. EDUARDO STATES SHE IS NOT ABLE TO PAY FOR THAT SERVICE AT THIS TIME. STATED TO EDUARDO THAT IS SHE IS NOT ABLE TO PROVIDE 24 HOUR CARE, THE PATIENT MAY NEED A HIGHER LEVEL OF CARE. EDUARDO STATED SHE WILL ATTEMT TO USE HH. MIL SIGNED FOR [place]. SPOKE WITH DALTON AT [place] AND FAXED OVER A REFERRAL. PATIENT AND ARE IN AGREEMENT WITH DC PLAN. CALLED [facility]ITA WITH NEW DC PLAN. YADIRA FARMER MSN,RN,CM .CM SPOKE TO PHYSICAL THERAPIST WHO INFORMED CM THAT PT NEEDS REHAB PLACEMENT. CM MET WITH PT IN ROOM TO DISCUSS DISCHARGE PLANNING AND NEEDS. PT REPORTS LIVING AT HOME INDEPENDENTLY WITH HIS . PT HAS ROLLATOR WALKER WITH NO MEDICAL EQUIPMENT PROVIDER PREFERENCE. PT HAS NO OUTSIDE SERVICES ASSISTING IN THE HOME. CM DISCUSSED AVAILABILITY OF HOME HEALTH, REHAB SERVICES AND MEDICAL EQUIPMENT. PT WANTS REHAB AT [facility] IT IS VERY CLOSE TO HIS HOME. CM DISCUSSED THAT PT CANNOT HAVE VISITORS AT ANY REHAB AT THIS TIME. PT REPORTS UNDERSTANDING. CM NOTIFIED PT'S SPOUSE VIA PHONE, , THAT IF ACCEPTED FOR REHAB, PT MAY NOT HAVE VISITORS DURING PLACEMENT AT [facility]. PT'S SPOUSE REPORTS UNDERSTANDING AND AGREEMENT. CM NOTIFIED DONITA GENAO OF [facility], , OF REHAB REFERRAL. CM FAXED REFERRAL TO [facility]IA [facility] AT [phone]. CM WAITING ADMISSION DETERMINATION FROM [facility].Yadira Farmer DCP- Discharge Planning Updated by [id number]: Josh Quinteros on 11/04/19 11:[address] Patient Name: SID WOLF Admission Status: ER Accout number: [id number] Admission Date: 11-03-2019 : 1960 Admission Diagnosis: Attending: JOSE Current LOS: 1 Anticipated DC Date: Planned Disposition: Senior Living Facility Primary Insurance: [employer] PLANNED EXTERNAL PROVIDER [facility]ER[facility] - Discharge Planning Comments: CM SPOKE TO PHYSICAL THERAPIST WHO INFORMED CM THAT PT NEEDS REHAB PLACEMENT. CM MET WITH PT IN ROOM TO DISCUSS DISCHARGE PLANNING AND NEEDS. PT REPORTS LIVING AT HOME INDEPENDENTLY WITH HIS . PT HAS ROLLATOR WALKER WITH NO MEDICAL EQUIPMENT PROVIDER PREFERENCE. PT HAS NO OUTSIDE SERVICES ASSISTING IN THE HOME. CM DISCUSSED AVAILABILITY OF HOME HEALTH, REHAB SERVICES AND MEDICAL EQUIPMENT. PT WANTS REHAB AT [facility] IT IS VERY CLOSE TO HIS HOME. CM DISCUSSED THAT PT CANNOT HAVE VISITORS AT ANY REHAB AT THIS TIME. PT REPORTS UNDERSTANDING. CM NOTIFIED PT'S SPOUSE VIA PHONE, , THAT IF ACCEPTED FOR REHAB, PT MAY NOT HAVE VISITORS DURING PLACEMENT AT [facility]. PT'S SPOUSE REPORTS UNDERSTANDING AND AGREEMENT. CM NOTIFIED DONITA GENAO OF [facility], , OF REHAB REFERRAL. CM FAXED REFERRAL TO [facility]IA [facility] AT [phone]. CM WAITING ADMISSION DETERMINATION FROM [facility]. President + Publisher: Josh Quinteros DCPIA - Discharge Planning Initial Assessment Updated by [id number]: Josh Quinteros on 11/04/19 12:35 pm * Is the patient Alert and Oriented? Yes * How many steps to enter\exit or inside your home? 2--I * PCP DR. OTERO * Pharmacy [facility] ON [address] * Preadmission Environment Home with Family * ADLs Independent * Equipment Rolling Walker * Other Equipment ROLLATOR WALKER - NO MEDICAL EQUIPMENT PROVIDER PREFERENCE * List name and contact numbers for known caregivers / representatives who currently or will assist patient after discharge: EDUARDO WOLF, SPOUSE, * Verbal permission to speak to the caregivers and representatives has been obtained from the patient. Yes * Community resources currently utilized None * Please name any agencies selected above. NONE * Additional services required to return to the preadmission environment? Yes * Can the patient safely return to the preadmission environment? Yes * Has this patient been hospitalized within the prior 30 days at any hospital? Yes Coverage Notice Reviewer: [id number] - Josh Quinteros Notice Issued Date-Time: 11/04/2019 11:05 Notice Type: Patient Choice Letter Notice Delivered To: Patient Relationship to Patient: Leather Grader Name: Delivery Method: HAND - Hand Delivered Laura Days: Prior Verbal Notification: Recipient Understood Notice: Yes Recipient Signature: Yes Med Rec Note Co-signed by Attending: Coverage Notice Comment: [facility] Last DP export: 11/05/19 4:15 pm Patient Name: SID WOLF Page [id number] at 0826 All edits/amendments must be made on the electronic document DICTATION DATE: 11/07/19824 SALES OFFICE ADMINISTRATOR: ANGELES 11/07/19824 RPT#: [id number] DC DATE:11/05/19 STATUS: DIS IN [facility] [address] [place] [address] END OF REPORT
== END 2019-11-05 17:27 | disposition home or self-care (01) | DRG 433 ==
LOC: D.ER 17:22 → D.M2 20:47 → OBSVTIME 22:00 → D.M2 11-04 19:14
PROVIDERS: Family Medicine; General Practice; ADMIT Family Medicine; ATTEND Family Medicine
PROC: 0W9G3ZZ Drainage of Peritoneal Cavity, Percutaneous Approach (ICD-10-PCS; principal; 2019-11-04 16:15)
DX: K70.31 Alcoholic cirrhosis of liver with ascites (principal); F10.239 Alcohol dependence with withdrawal, unspecified; I85.00 Esophageal varices without bleeding; D53.9 Nutritional anemia, unspecified; F12.10 Cannabis abuse, uncomplicated; J30.2 Other seasonal allergic rhinitis

== ENCOUNTER 2019-11-14 17:05 | Inpatient (IN) | payer OTHER ==
[~2019-11-14 17:05] MED LIST changes: +ALDACTONE25 MG PO; +FOLIC ACID1 MG PO; +K-DUR20 MEQ PO; +LASIX40 MG PO; +VIT B 1 PO
[2019-11-14 17:37] VITALS: BP 92/51; BMI 28.0
[2019-11-14] MEDS ORDERED: LIBRIUM25 MG PO (18:26)
[2019-11-14] MEDS ORDERED: VITAMIN D 3 PO (18:30)
[2019-11-14] MEDS ORDERED: C-10001000 MG (18:33)
[2019-11-14] MEDS ORDERED: LIQUID MINERALS PO (18:35)
[2019-11-14] MEDS ORDERED: ACETAMINOPHEN500 M1 PO (18:36)
[2019-11-14 18:50] LABS: BASOPHILS 0.6 % (0-2); HEMATOCRIT 36.6 % (42.0-54.0); HEMOGLOBIN 12.4 g/dL (13.5-17.5); IMMATURE GRANULOCYTES 0.1 % (0-5); LYMPHOCYTES 22.1 % (15-50); MCH 34.9 pg (26.0-34.0); MCHC 33.9 g/dL (31.0-37.0); MCV 103.1 fL (80.0-100.0); MEAN PLATELET VOLUME 9.5 fL (7.4-10.4); MONOCYTES 8.5 % (2-11); NEUTROPHILS 64.7 % (40-80); RBC 3.55 10x6/uL (4.20-6.10); WBC 6.7 10x3/uL (4.8-10.8)
[2019-11-14 18:52] LABS: PLATELET COUNT 130 10x3/uL (130-400)
[2019-11-14 19:09] LABS: ALBUMIN 2.7 g/dL (3.4-5.0); ALKALINE PHOSPHATASE 158 U/L (30-120); ALT (SGPT) 64 U/L (10-68); BILIRUBIN - TOTAL 3.39 mg/dL (0.2-1.3); CALC OSMOLALITY 277 mosm/kg (275-300); CALCIUM 8.4 mg/dL (8.5-10.1); CARBON DIOXIDE 26.5 mmol/L (21.0-32.0); CHLORIDE - SERUM 105 mmol/L (98-107); GLUCOSE 120 mg/dL (74-106); POTASSIUM - SERUM 4.2 mmol/L (3.5-5.1); PROTEIN - SERUM 6.5 g/dL (6.4-8.2); SODIUM 139 mmol/L (136-145); UREA NITROGEN 10 mg/dL (7-18); eGFR NON AFRICAN AMERICAN 81 mL/min (90-120)
--- NOTE | 2019-11-14 19:30 | NUR ---
PT TAKEN FOR XRAY AND CT AT THIS TIME
[2019-11-14 20:00] VITALS: BP 123/64
--- NOTE | 2019-11-14 20:30 | NUR ---
PT SITTING UP IN BED WITHOUT DISTRESS, AOX4. STARTED 20G IV LEFT FA X1 ATTEMPT. INFUSING NS @ 50. ABD DISTENDED, NONTENDER. PT STATES HIS PAIN AT THIS TIME IS IN HIS ARMS, STATES THEY ARE ACHY. ENCOURAGED PT TO CALL FOR ASSISTANCE IF NEEDING TO AMBULATE. URINAL AT BEDSIDE. ASSISTED PT INTO HOSPITAL GOWN. PROVIDED WATER. SPOKE WITH NOLAN SANDOVAL APN ABOUT PT PAIN IN ARMS, NO NEW ORDERS. WILL CTM
[2019-11-15 04:00] VITALS: BP 110/67
[2019-11-15 05:17] LABS: BASOPHILS 0.9 % (0-2); EOSINOPHILS 4.6 % (0-7); HEMATOCRIT 33.2 % (42.0-54.0); HEMOGLOBIN 11.4 g/dL (13.5-17.5); IMMATURE GRANULOCYTES 0.1 % (0-5); LYMPHOCYTES 25.2 % (15-50); MCH 34.7 pg (26.0-34.0); MCHC 34.3 g/dL (31.0-37.0); MEAN PLATELET VOLUME 9.8 fL (7.4-10.4); MONOCYTES 10.3 % (2-11); NEUTROPHILS 58.9 % (40-80); PLATELET COUNT 127 10x3/uL (130-400); RBC 3.29 10x6/uL (4.20-6.10); RDW 17.9 % (11.5-14.5); WBC 7.4 10x3/uL (4.8-10.8)
[2019-11-15 05:26] LABS: MCV 100.9 fL (80.0-100.0)
[2019-11-15 06:07] LABS: ALBUMIN 2.5 g/dL (3.4-5.0); ALKALINE PHOSPHATASE 143 U/L (30-120); ALT (SGPT) 50 U/L (10-68); AMYLASE - SERUM 37 U/L (25-115); BILIRUBIN - TOTAL 2.95 mg/dL (0.2-1.3); CALC OSMOLALITY 271 mosm/kg (275-300); CALCIUM 7.9 mg/dL (8.5-10.1); CARBON DIOXIDE 23.3 mmol/L (21.0-32.0); CHLORIDE - SERUM 105 mmol/L (98-107); CHOL - HDL RATIO 6.2 ratio (2.3-4.9); CHOLESTEROL, TOTAL 209 mg/dL (0-200); GLUCOSE 88 mg/dL (74-106); HDL CHOLESTEROL 34 mg/dL (32-96); LDL CHOLESTEROL 156 mg/dL (0-100); LDL-HDL RATIO 4.6 ratio (1.5-3.5); LIPASE 123 U/L (73-393); MAGNESIUM - SERUM 1.7 mg/dL (1.8-2.4); PHOSPHOROUS 3.1 mg/dL (2.5-4.9); POTASSIUM - SERUM 3.9 mmol/L (3.5-5.1); PRO BNP 112 pg/mL (0-125); SODIUM 137 mmol/L (136-145); TRIGLYCERIDE 95 mg/dL (30-200); UREA NITROGEN 9 mg/dL (7-18); eGFR NON AFRICAN AMERICAN 81 mL/min (90-120)
--- NOTE | 2019-11-15 08:47 | NUR ---
AWAKE AND ALERT. ORIENTED X3. NO C/O EXCEPT PAIN TO COCCYX FROM RECENT FALL. WILL MONITOR. LUNGS ARE CLEAR BILATERALLY, NO COUGH NOTED. SKIN IS INTACT WITHOUT REDNESS. IV TO RIGHT FOREARM IS PATENT WITHOUT REDNESS AT INSERTION SITE. DENIES NEEDS.
[2019-11-15 09:00] VITALS: BP 109/67
--- NOTE | 2019-11-15 10:00 | NUR ---
ATE ALL OF BREAKFASAT AND TOOK AM MEDS WITHOUT DIFFICULTY. DENIES NEEDS. VOIDED 400CC CLEAR YELLOW URINE IN URINAL.
--- NOTE | 2019-11-15 10:00 | NUR ---
Rehab Prescreening Consult recieved and the chart has been reviewed. He is [facility] and will require an auth for acute rehab. He has a PT eval ordered, but will also need an OT eval for their review. Discussed with the CM Melissa Stevenson RN Clinical Liaison, Rehab
[2019-11-15 12:44] LABS: INR 1.68 (0.85-1.17); PROTIME 19.6 SECONDS (11.6-15.0)
[2019-11-15 13:15] VITALS: BP 117/76
--- NOTE | 2019-11-15 13:22 | MORECARE ---
CASE MANAGEMENT DISCHARGE SUMMARY PATIENT: SID WOLF UNIT: [id number] ADM DATE: 11/14/19 AGE: 59 : 56 SEX: M ROOM/BED: D.2217 AUTHOR: MERRILL ELIZABETH PHYSICIAN: REFERRING PHYSICIAN: ENMA DESAI DO DATE OF SERVICE: 11/15/19 Discharge Plan Patient Name: SID WOLF [facility] [facility] 1960 Planned Disposition: Inpatient Rehab Anticipated Discharge Date: Discharge Date: Expected LOS: Initial Reviewer: [id number] Initial Review Date: 11/14/2019 Generated: 11/15/19 2:22 pm DCPIA - Discharge Planning Initial Assessment Updated by [id number]: Cesia Galvin on 11/15/19 1:17 pm * Is the patient Alert and Oriented? Yes * How many steps to enter\exit or inside your home? * PCP BRANDEN * Pharmacy [facility] * Preadmission Environment Home with Family * ADLs Independent * Equipment Rolling Walker Shower Chair * List name and contact numbers for known caregivers / representatives who currently or will assist patient after discharge: EDUARDO () [phone] * Community resources currently utilized Home Health * Please name any agencies selected above. [facility] * Additional services required to return to the preadmission environment? Yes * Can the patient safely return to the preadmission environment? No * Has this patient been hospitalized within the prior 30 days at any hospital? Yes External Providers External Provider: [facility] Next Contact Date: Service Request Date: Service Type: Resolution: Reviewer: Comments: Patient Name: SID WOLF Page 56515 at 1322 All edits/amendments must be made on the electronic document DICTATION DATE: 11/15/19 1322 TRANSLATOR: ANGELES 11/15/19 1322 RPT#: [id number] DC DATE: STATUS: ADM IN [facility] [address] [place] [address] END OF REPORT
--- NOTE | 2019-11-15 13:37 | MORECARE ---
CASE MANAGEMENT DISCHARGE SUMMARY PATIENT: SID WOLF UNIT: [id number] ADM DATE: 11/14/19 AGE: 59 : 56 SEX: M ROOM/BED: D.2217 AUTHOR: GLENNDOC PHYSICIAN: REFERRING PHYSICIAN: ENMA DESAI DO DATE OF SERVICE: 11/15/19 Discharge Plan Patient Name: SID WOLF Facility: [facility]:[place] : 1960 Planned Disposition: Inpatient Rehab Anticipated Discharge Date: Discharge Date: Expected LOS: Initial Reviewer: [id number] Initial Review Date: 11/14/2019 Generated: 11/15/19 2:36 pm Comments DCP- Discharge Planning Updated by [email or web address]: Cesia Galvin on 11/15/19 12:[address] Patient Name: SID WOLF Admission Status: Elective Accout number: [id number] Admission Date: 11-14-2019 : 1960 Admission Diagnosis: Attending: ENMA DESAI Current LOS: 1 Anticipated DC Date: Planned Disposition: Inpatient Rehab Primary Insurance: [facility] Discharge Planning Comments: Received a call from patients to discuss discharge planning needs. Patient lives at home with his , Eduardo. This is his 3rd admission this past month and Eduardo said that he is falling all over the place. He has a walker and a shower chair. He was set up and is current with [facility]. At discharge his would like him to go to inpatient rehab at [facility]. I have started the process and faxed h&p with a facesheet to [facility]. At this time he still has OT and PT evals pending. CM will continue to follow and will assist as needed with dc plans/needs. Air Traffic Controller Center: Cesia Galvin DCPIA - Discharge Planning Initial Assessment Updated by [id number]: Cesia Galvin on 11/15/19 1:17 pm * Is the patient Alert and Oriented? Yes * How many steps to enter\exit or inside your home? * PCP BRANDEN * Pharmacy [facility] * Preadmission Environment Home with Family * ADLs Independent * Equipment Rolling Walker Shower Chair * List name and contact numbers for known caregivers / representatives who currently or will assist patient after discharge: EDUARDO () [phone] * Community resources currently utilized Home Health * Please name any agencies selected above. [facility] * Additional services required to return to the preadmission environment? Yes * Can the patient safely return to the preadmission environment? No * Has this patient been hospitalized within the prior 30 days at any hospital? Yes Last DP export: 11/15/19 12:22 p Patient Name: SID WOLF Page 70917 at 1337 All edits/amendments must be made on the electronic document DICTATION DATE: 11/15/19 1336 PREMIUM NOTE INTEREST CALCULATOR CLERK: ANGELES 11/15/19 1336 RPT#: [id number] DC DATE: STATUS: ADM IN [facility] [address] [place] [address] END OF REPORT
--- NOTE | 2019-11-15 15:00 | NUR ---
OFF UNIT VIA BED FOR PROCEDURE.
[2019-11-15 16:41] LABS: MACROPHAGES BF 71 %; NEUT - BF 3 %
--- NOTE | 2019-11-15 16:54 | NUR ---
OT NOTE: PT ALARM SOUNDING. PT STANDING AT EOB WHILE URINATING ON FLOOR. PT REQUIRED MIN A TO SIT AT EOB SECONDARY TO CONFUSION. PT REQUIRED MOD A FOR LB DRESSING AND LB HYGIENE TASKS. PT REQUIRED CGA FOR SIT TO STAND TO DOFF PANTS. NURSING NOTIFIED. [phone] THANK YOU,LORI BENAVIDEZ
--- NOTE | 2019-11-15 19:01 | NUR ---
ATE MOST OF SUPPER. DENIES NEEDS. NO CHANGES NOTED.
--- NOTE | 2019-11-15 19:10 | NUR ---
PATIENT RESTING WITH EYES CLOSED WHEN ENTERING THE ROOM. AROUSES WHEN NAME CALLED. PATIENT SLIGHTLY DISORIENTED BUT REORIENTS EASILY. PATIENT HAS LEFT FOREARM IV THAT IS PATENT. DENIES PAIN AT THIS TIME. ABDOMEN DISTENDED. BOWEL SOUNDS ACTIVE. DENIES FURTHER NEEDS AT THIS TIME. INFORMED OF NPO STATUS AT MIDNIGHT, PATIENT STATES HES AWARE. NO QUESTIONS AT THIS TIME. CALL LIGHT IN REACH. TED ALARM ON. CPOC.
[2019-11-15 20:00] VITALS: BP 130/75
--- NOTE | 2019-11-16 00:42 | NUR ---
PATIENT UP AND DOWN MOST OF SHIFT SO FAR. SITTING IN CHAIR. STATES HE CAN'T SLEEP. STATES HE DOES NOT WANT PAIN MEDICINE. STATES "I JUST WANT TO GO TO BED."
[2019-11-16 00:56] VITALS: BP 115/67
[2019-11-16 03:00] VITALS: BP 111/72
--- NOTE | 2019-11-16 04:44 | NUR ---
ASSISTED PATIENT TO BATHROOM SEVERAL TIMES. DENIES PAIN OR DISCOMFORT AT THIS TIME. RESTING. CALL LIGHT IN REACH. CPOC.
[2019-11-16 05:10] LABS: BASOPHILS 0.7 % (0-2); EOSINOPHILS 5.4 % (0-7); HEMATOCRIT 35.2 % (42.0-54.0); HEMOGLOBIN 12.2 g/dL (13.5-17.5); IMMATURE GRANULOCYTES 0.1 % (0-5); LYMPHOCYTES 23.6 % (15-50); MCH 34.9 pg (26.0-34.0); MCHC 34.7 g/dL (31.0-37.0); MCV 100.6 fL (80.0-100.0); MEAN PLATELET VOLUME 9.6 fL (7.4-10.4); MONOCYTES 10.3 % (2-11); NEUTROPHILS 59.9 % (40-80); PLATELET COUNT 132 10x3/uL (130-400); RDW 18.1 % (11.5-14.5); WBC 7.4 10x3/uL (4.8-10.8)
[2019-11-16 05:46] LABS: ALBUMIN 2.8 g/dL (3.4-5.0); ALKALINE PHOSPHATASE 116 U/L (30-120); ALT (SGPT) 53 U/L (10-68); BILIRUBIN - TOTAL 4.59 mg/dL (0.2-1.3); CALC OSMOLALITY 272 mosm/kg (275-300); CALCIUM 8.4 mg/dL (8.5-10.1); CARBON DIOXIDE 22.9 mmol/L (21.0-32.0); CHLORIDE - SERUM 103 mmol/L (98-107); CREATININE - SERUM 0.9 mg/dL (0.6-1.3); GLUCOSE 91 mg/dL (74-106); MAGNESIUM - SERUM 1.9 mg/dL (1.8-2.4); PHOSPHOROUS 3.5 mg/dL (2.5-4.9); POTASSIUM - SERUM 3.8 mmol/L (3.5-5.1); PROTEIN - SERUM 6.6 g/dL (6.4-8.2); SODIUM 137 mmol/L (136-145); UREA NITROGEN 9 mg/dL (7-18); eGFR NON AFRICAN AMERICAN > 90 mL/min (90-120)
--- NOTE | 2019-11-16 06:21 | NUR ---
I have reviewed this patient and I concur with the Shift Assessment completed by the Licensed Practical Nurse today this shift.
[2019-11-16 08:00] VITALS: BP 119/79
[2019-11-16 08:45] VITALS: BP 107/59
--- NOTE | 2019-11-16 10:40 | NUR ---
HAD A CT DONE, HE IS CONFUSED AT TIMES. HE HAS A BED ALARM ON AND THE CALL LIGHT IS WITHIN REACH. HE TOOK HIS MEDS WITHOUT ANY ISSUES.
[2019-11-16 12:00] VITALS: BP 105/58
[2019-11-16 16:00] VITALS: BP 143/77
--- NOTE | 2019-11-16 19:20 | NUR ---
RESTING WHEN ENTERING THE ROOM. AROUSES WHEN NAME CALLED. DENIES NEEDS AT THIS TIME. CALL LIGHT CLOSE. BED LOW. TED ALARM ON. CPOC.
--- NOTE | 2019-11-17 00:44 | NUR ---
UP AND DOWN MOST OF SHIFT SO FAR. PATIENT IRRITABLE WITH "SITUATION" STATES HE IS NOT IN PAIN AT THIS TIME, HE JUST WANTS TO "SLEEP" AND HE CAN NOT. ASSISTED PATIENT TO CHAIR, STATES HE WANTS TO WATCH TV.
--- NOTE | 2019-11-17 01:19 | NUR ---
ASSISTED BACK TO BED. PATIENT STATES HE IS GOING TO TRY TO GET SOME SLEEP
--- NOTE | 2019-11-17 03:47 | NUR ---
PATIENT AWAKE AGAIN. STATES "I JUST NEED ONE MORE HOUR." WHEN ASKED WHAT HE IS REFERENCING PATIENT STATES "I'M SIGNING MYSELF OUT. I'VE BEEN HERE FOR TWO WEEKS. ITS TIME TO GO. NOTHING IS HAPPENING." REORIENTED PATIENT TO WHAT DAY HE WAS ADMITTED AND WHEN HE ARRIVED TO HOSPITAL. PATIENT STATES HE IS JUST VERY TIRED AND UNDERSTOOD. ASKED TO GET BACK IN THE CHAIR
[2019-11-17 04:00] VITALS: BP 128/85
--- NOTE | 2019-11-17 05:17 | NUR ---
ASSISTED BACK TO BED. PATIENT ASKED THAT IV BE SALINE LOCKED AT THIS TIME HE IS TIRED OF IT "TANGLING UP." SALINE LOCKED PATIENT PER REQUEST.
[2019-11-17 05:40] LABS: BASOPHILS 0.6 % (0-2); EOSINOPHILS 5.1 % (0-7); HEMATOCRIT 36.4 % (42.0-54.0); HEMOGLOBIN 12.8 g/dL (13.5-17.5); IMMATURE GRANULOCYTES 0.1 % (0-5); LYMPHOCYTES 20.8 % (15-50); MCH 35.2 pg (26.0-34.0); MCHC 35.2 g/dL (31.0-37.0); MEAN PLATELET VOLUME 9.4 fL (7.4-10.4); MONOCYTES 9.3 % (2-11); NEUTROPHILS 64.1 % (40-80); PLATELET COUNT 136 10x3/uL (130-400); RBC 3.64 10x6/uL (4.20-6.10); RDW 17.6 % (11.5-14.5); WBC 7.9 10x3/uL (4.8-10.8)
[2019-11-17 06:33] LABS: ALBUMIN 2.9 g/dL (3.4-5.0); ALKALINE PHOSPHATASE 123 U/L (30-120); ALT (SGPT) 61 U/L (10-68); BILIRUBIN - TOTAL 4.08 mg/dL (0.2-1.3); CALC OSMOLALITY 266 mosm/kg (275-300); CALCIUM 8.1 mg/dL (8.5-10.1); CARBON DIOXIDE 23.9 mmol/L (21.0-32.0); CHLORIDE - SERUM 102 mmol/L (98-107); GLUCOSE 88 mg/dL (74-106); MAGNESIUM - SERUM 1.7 mg/dL (1.8-2.4); PHOSPHOROUS 3.3 mg/dL (2.5-4.9); PROTEIN - SERUM 6.7 g/dL (6.4-8.2); SODIUM 135 mmol/L (136-145); UREA NITROGEN 7 mg/dL (7-18); eGFR NON AFRICAN AMERICAN 81 mL/min (90-120)
[2019-11-17 09:00] VITALS: BP 112/68
--- NOTE | 2019-11-17 09:05 | NUR ---
HE IS NPO FOR TEST THIS MORNING. HE IS CRYING, TALKING ABOUT THIS FAMILY. NEW IV 20 G TO RIGHT ARM. LISTENED TO HIM VOICE HIS CONCERNS ABOUT HIS /FAMILY.
--- NOTE | 2019-11-17 10:00 | NUR ---
GONE FOR A TEST.
[2019-11-17 16:26] VITALS: BP 116/67
--- NOTE | 2019-11-17 19:24 | NUR ---
PATIENT RESTING IN BED WITH EYES CLOSED AND NO S/S OF DISTRESS. RESP EVEN AND UNLABORED. BED IN LOWEST POSITION AND CALL LIGHT WITHIN REACH. WILL CONTINUE TO MONITOR.
[2019-11-17 21:14] VITALS: BP 104/62
[2019-11-18 01:01] VITALS: BP 112/70
[2019-11-18 04:44] LABS: BASOPHILS 0.4 % (0-2); EOSINOPHILS 5.1 % (0-7); HEMATOCRIT 33.6 % (42.0-54.0); HEMOGLOBIN 11.7 g/dL (13.5-17.5); IMMATURE GRANULOCYTES 0.1 % (0-5); LYMPHOCYTES 19.7 % (15-50); MCH 34.8 pg (26.0-34.0); MCHC 34.8 g/dL (31.0-37.0); MEAN PLATELET VOLUME 9.2 fL (7.4-10.4); MONOCYTES 11.2 % (2-11); NEUTROPHILS 63.5 % (40-80); PLATELET COUNT 121 10x3/uL (130-400); RBC 3.36 10x6/uL (4.20-6.10); RDW 17.4 % (11.5-14.5); WBC 7.7 10x3/uL (4.8-10.8)
[2019-11-18 05:16] VITALS: BP 122/67
[2019-11-18 05:22] LABS: ALBUMIN 2.5 g/dL (3.4-5.0); ALKALINE PHOSPHATASE 126 U/L (30-120); ALT (SGPT) 56 U/L (10-68); BILIRUBIN - TOTAL 2.86 mg/dL (0.2-1.3); CALC OSMOLALITY 269 mosm/kg (275-300); CHLORIDE - SERUM 103 mmol/L (98-107); CREATININE - SERUM 0.9 mg/dL (0.6-1.3); GLUCOSE 95 mg/dL (74-106); PHOSPHOROUS 3.1 mg/dL (2.5-4.9); POTASSIUM - SERUM 3.9 mmol/L (3.5-5.1); PROTEIN - SERUM 6.3 g/dL (6.4-8.2); SODIUM 136 mmol/L (136-145); UREA NITROGEN 8 mg/dL (7-18); eGFR NON AFRICAN AMERICAN > 90 mL/min (90-120)
[2019-11-18 07:14] VITALS: BP 112/67
--- NOTE | 2019-11-18 07:45 | NUR ---
HE IS WANTING TO SLEEP THIS MORNING. HE IS ALERT, ASKING ABOUT A SURGEON COMING TO SEE HIM. HE DENIES ANY PAIN. HE IS HUNGRY.
[2019-11-18 09:08] LABS: ANA REFLEX - DIRECT Negative (Negative)
--- NOTE | 2019-11-18 12:04 | NUR ---
Rehab Prescreening Consult received and the chart has been reveiwed. Spoke to Melissa Galvin the CM who states this patient wants to go to [facility] rehab. Where she has made a referral to per his choice. Lily Stevenson RN Clinical Liaison, Rehab
[2019-11-18 12:30] VITALS: BP 108/72
--- NOTE | 2019-11-18 15:36 | NUR ---
OT NOTE: (AM) PT COMPLETED SITTING BALANCE AXS WITH CGA. PT COMPLETED SUPINE TO SIT WITH SBA. PT COMPLETED SIT TO SUPINE WITH SBA. PT COMPLETED HAIR GROOMING WITH SET UP. (PM) PT REQUIRED MIN A FOR DONNING UNDERWEAR AND PANTS. PT COMPLETED SUKHJINDER/DOFF SOCKS WITH SBA. PT COMPLETED ADL MOB WITH CGA. PT COMPLETED SIT TO STAND WITH CGA . PT REQUIRED TACTILE CUES FOR INCREASED SAFETY AWARENESS. [phone] THANK YOU,LORI BENAVIDEZ
[2019-11-18 17:03] VITALS: BP 108/70
--- NOTE | 2019-11-18 19:30 | NUR ---
PT LYING IN BED RESTING WITHOUT DISTRESS, AOX4. DENIES NEEDS AT THIS TIME, TED ON. CL IN REACH, WILL CTM
[2019-11-18 20:00] VITALS: BP 107/69
[2019-11-19] VITALS: BP 110/74
[2019-11-19 04:00] VITALS: BP 101/77
[2019-11-19 04:31] LABS: BASOPHILS 0.8 % (0-2); EOSINOPHILS 5.6 % (0-7); HEMATOCRIT 35.4 % (42.0-54.0); HEMOGLOBIN 12.2 g/dL (13.5-17.5); IMMATURE GRANULOCYTES 0.1 % (0-5); LYMPHOCYTES 22.8 % (15-50); MCH 34.8 pg (26.0-34.0); MCHC 34.5 g/dL (31.0-37.0); MCV 100.9 fL (80.0-100.0); MEAN PLATELET VOLUME 9.3 fL (7.4-10.4); MONOCYTES 10.5 % (2-11); NEUTROPHILS 60.2 % (40-80); PLATELET COUNT 113 10x3/uL (130-400); RBC 3.51 10x6/uL (4.20-6.10); RDW 17.7 % (11.5-14.5); WBC 7.4 10x3/uL (4.8-10.8)
[2019-11-19 04:54] LABS: ALBUMIN 2.7 g/dL (3.4-5.0); ALKALINE PHOSPHATASE 133 U/L (30-120); ALT (SGPT) 58 U/L (10-68); BILIRUBIN - TOTAL 2.87 mg/dL (0.2-1.3); CALC OSMOLALITY 264 mosm/kg (275-300); CARBON DIOXIDE 26.2 mmol/L (21.0-32.0); CHLORIDE - SERUM 101 mmol/L (98-107); CREATININE - SERUM 0.8 mg/dL (0.6-1.3); GLUCOSE 87 mg/dL (74-106); MAGNESIUM - SERUM 1.7 mg/dL (1.8-2.4); PHOSPHOROUS 3.4 mg/dL (2.5-4.9); POTASSIUM - SERUM 3.6 mmol/L (3.5-5.1); PROTEIN - SERUM 6.4 g/dL (6.4-8.2); SODIUM 134 mmol/L (136-145); UREA NITROGEN 8 mg/dL (7-18); eGFR NON AFRICAN AMERICAN > 90 mL/min (90-120)
[2019-11-19 07:54] VITALS: BP 117/63
--- NOTE | 2019-11-19 08:06 | NUR ---
PT LYING IN BED, EASILY AWAKENED FOR ASSESSMENT, PT STATED THAT HE IS CHECKING HIMSELF OUT TODAY BECUASE IT DOESNT SEEM LIKE THERE IS MUCH MORE WE CAN DO FOR HIM, TOLD PT TO WAIT UNTIL DOCTORS MADE ROUNDS AND WE CAN DISCUSS PLAN OF CARE, PT STATED HE WANTED ME TO BE AT THIS MEETING AND THAT HE WANTED ME TO BE ON BOARD. TOLD PT HE IS IN THE HOSPITAL AND WE ARE WORKING ON A TREATMENT PLAN TO GET HIM BETTER AND WE ARE WORKING TOWARDS THAT GOAL ONE DAY AT A TIME. NO OTHER NEEDS VOICED AT [facility], CL IN REACH, CONTINUE WITH PLAN OF CARE
--- NOTE | 2019-11-19 11:35 | MORECARE ---
CASE MANAGEMENT DISCHARGE SUMMARY PATIENT: SID WOLF UNIT: [id number] ADM DATE: 11/14/19 AGE: 59 : 56 SEX: M ROOM/BED: D.2217 AUTHOR: MERRILL ELIZABETH PHYSICIAN: REFERRING PHYSICIAN: ENMA DESAI DO DATE OF SERVICE: 11/19/19 Discharge Plan Patient Name: SID WOLF [facility] [facility] 1960 Planned Disposition: Inpatient Rehab Anticipated Discharge Date: Discharge Date: Expected LOS: Initial Reviewer: [email or web address] Initial Review Date: 11/14/2019 Generated: 11/19/19 12:34 pm Comments DCP- Discharge Planning Updated by [email or web address]: Cesia Galvin on 11/19/19 10:[address] spoke with Grecia at [facility] inpatient rehab they have submitted the auth for rehab. I also spoke with patient and at length and they want to be discharged TODAY either [facility] or [facility] DCP- Discharge Planning Updated by [email or web address]: Cesia Galvin on 11/15/19 12:[address] Patient Name: SID WOLF Admission Status: Elective Accout number: [id number] Admission Date: 11-14-2019 : 1960 Admission Diagnosis: Attending: ENMA DESAI Current LOS: 1 Anticipated DC Date: Planned Disposition: Inpatient Rehab Primary Insurance: TRIC[employer]ER Discharge Planning Comments: Received a call from patients to discuss discharge planning needs. Patient lives at home with his , Eduardo. This is his 3rd admission this past month and Eduardo said that he is falling all over the place. He has a walker and a shower chair. He was set up and is current with [facility]. At discharge his would like him to go to inpatient rehab at [facility]. I have started the process and faxed h&p with a facesheet to [facility]. At this time he still has OT and PT evals pending. CM will continue to follow and will assist as needed with dc plans/needs. Fertilizer Loader: Cesia Galvin DCPIA - Discharge Planning Initial Assessment Updated by [email or web address]: Cesia Galvin on 4/17/20 1:17 pm * Is the patient Alert and Oriented? Yes * How many steps to enter\exit or inside your home? * PCP BRANDEN * [facility]acy [facility] * Preadmission Environment Home with Family * ADLs Independent * Equipment Rolling Walker Shower Chair * List name and contact numbers for known caregivers / representatives who currently or will assist patient after discharge: EDUARDO () [phone] * Community resources currently utilized Home Health * Please name any agencies selected above. [facility] * Additional services required to return to the preadmission environment? Yes * Can the patient safely return to the preadmission environment? No * Has this patient been hospitalized within the prior 30 days at any hospital? Yes Last DP export: 11/15/19 12:37 p Patient Name: SID WOLF Page 36388 at 1135 All edits/amendments must be made on the electronic document DICTATION DATE: 11/19/19 1134 DYE STAND LOADER: ANGELES 11/19/19 1134 RPT#: [id number] DC DATE: STATUS: ADM IN [facility] [address] [place] [address] END OF REPORT
[2019-11-19 12:06] VITALS: BP 100/49
[2019-11-19 12:08] LABS: HEPATITIS C ANTIBODY 0.2 S/CO RAT (0.0-0.9)
[2019-11-19 13:09] LABS: MITOCHONDRIAL ANTIBODY <20.0 Units (0.0-20.0); SMOOTH MUSCLE ABS (ACTIN) 8 Units (0-19)
--- NOTE | 2019-11-19 14:12 | NUR ---
OT NOTE: BED MOB WITH SPV; IN ROOM AMBULATION WITH WALKER AND CGA FOR BALANCE..OCCASSIONAL LOB WITH ATTEMPTS TO MANEUVER AROUND SMALL ROOM; ABLE TO SUKHJINDER/DOFF SOCKS WHILE SITTING ON EOB WITH SEVERAL ATTEMPTS. CONT WITH SOME CONFUSION; RECOMMEND IP REHAB FOR SAFETY, BALANCE, AND ADL TRAINING. BOBO GOLDBERG, OTR/L [phone]
--- NOTE | 2019-11-19 15:21 | MORECARE ---
CASE MANAGEMENT DISCHARGE SUMMARY PATIENT: SID WOLF UNIT: [id number] ADM DATE: 11/14/19 AGE: 59 : 56 SEX: M ROOM/BED: D.2217 AUTHOR: MERRILL ELIZABETH PHYSICIAN: REFERRING PHYSICIAN: ENMA DESAI DO DATE OF SERVICE: 11/19/19 Discharge Plan Patient Name: SID WOLF [facility]:[place] : 1960 Planned Disposition: Inpatient Rehab Anticipated Discharge Date: Discharge Date: Expected LOS: Initial Reviewer: [email or web address] Initial Review Date: 11/14/2019 Generated: 11/19/19 4:21 pm Comments DCP- Discharge Planning Updated by [email or web address]: Cesia Galvin on 11/19/19 2:[address] Patient has been denied inpatient rehab at [facility]. I have spoke with his and the patient wants to go home. He is current with [facility]. He will continue this and start the [facility] program. will notify [place] of DC. DCP- Discharge Planning Updated by [email or web address]: Cesia Galvin on 11/19/19 10:[address] spoke with Grecia at [facility] inpatient rehab they have submitted the auth for rehab. I also spoke with patient and at length and they want to be discharged TODAY either [facility] or [facility] DCP- Discharge Planning Updated by [id number]: Cesia Galvin on 11/15/19 12:[address] Patient Name: SID WOLF Admission Status: Elective Accout number: [id number] Admission Date: 11-14-2019 : 1960 Admission Diagnosis: Attending: ENMA DESAI Current LOS: 1 Anticipated DC Date: Planned Disposition: Inpatient Rehab Primary Insurance: TRIC[employer]ER Discharge Planning Comments: Received a call from patients to discuss discharge planning needs. Patient lives at home with his , Eduardo. This is his 3rd admission this past month and Eduardo said that he is falling all over the place. He has a walker and a shower chair. He was set up and is current with [facility]. At discharge his would like him to go to inpatient rehab at [facility]. I have started the process and faxed h&p [facility] a facesheet to [facility]. At this time he still has OT and PT evals pending. CM will continue to follow and will assist as needed with dc plans/needs. Pinball Machine Repairer: Cesia Galvin DCPIA - Discharge Planning Initial Assessment Updated by [email or web address]: Cesia Galvin on 11/15/19 1:17 pm * Is the patient Alert and Oriented? Yes * How many steps to enter\exit or inside your home? * PCP BRANDEN * [facility]acy [facility] * Preadmission Environment Home with Family * ADLs Independent * Equipment Rolling Walker Shower Chair * List name and contact numbers for known caregivers / representatives who currently or will assist patient after discharge: EDUARDO () [phone] * Community resources currently utilized Home Health * Please name any agencies selected above. [facility] * Additional services required to return to the preadmission environment? Yes * Can the patient safely return to the preadmission environment? No * Has this patient been hospitalized within the prior 30 days at any hospital? Yes External Providers External Provider: [facility] Next Contact Date: Service Request Date: Service Type: Resolution: Reviewer: Comments: Last DP export: 11/19/19 10:35 a Patient Name: SID WOLF Page 07502 at 1521 All edits/amendments must be made on the electronic document DICTATION DATE: 11/19/19 152 HEADING MATCHER AND ASSEMBLER: ANGELES 11/19/19 1521 RPT#: [id number] DC DATE: STATUS: ADM IN [facility] [address] [place] [address] END OF REPORT
[2019-11-19 15:44] VITALS: BP 125/71
[2019-11-19] MEDS ORDERED: MULTI-DAY VITAM1 TAB PO (15:46)
--- NOTE | 2019-11-19 15:51 | NUR ---
OT NOTE: PT COMPLETED SUPINE TO SIT WITH SBA. PT COMPLETED ADL MOB WITH RW WITH CGA. PT COMPLETED TOILET HYGIENE WITH CGA. PT COMPLETED UE AROM EXS AT EOB. PT EXHIBITED POOR SAFETY AWARENESS AND REQUIRED TACTILE AND VERBAL CUES FOR INCREASED SAFETY WITH DYNAMIC TASKS. [phone] THANK YOU,LORI BENAVIDEZ
--- NOTE | 2019-11-19 16:45 | NUR ---
PT DC HOME, WENT OVER DC PAPERWORK WELL FOLLOW UP APPOINTMENTS. IV DC WITH CATHETER INTACT. ALL QUESTIONS ANSWERED, PT TAKEN DOWN VIA WC BY JOLANTA
--- NOTE | 2019-11-19 17:15 | MORECARE ---
CASE MANAGEMENT DISCHARGE SUMMARY PATIENT: SID WOLF UNIT: [id number] ADM DATE: 11/14/19 AGE: 59 : 56 SEX: M ROOM/BED: D.2217 AUTHOR: MERRILL ELIZABETH PHYSICIAN: REFERRING PHYSICIAN: ENMA DESAI DO DATE OF SERVICE: 11/19/19 Discharge Plan Patient Name: SID WOLF [facility]:[place] : 1960 Planned Disposition: Inpatient Rehab Anticipated Discharge Date: Discharge Date: 11/19/2019 Expected LOS: Initial Reviewer: [email or web address] Initial Review Date: 11/14/2019 Generated: 11/19/19 6:15 pm Comments DCP- Discharge Planning Updated by [email or web address]: Cesia Galvin on 11/19/19 2:[address] Patient has been denied inpatient rehab at [facility]. I have spoke with his and the patient wants to go home. He is current with [facility]. He will continue this and start the [facility] program. will notify [place] of DC. DCP- Discharge Planning Updated by [id number]: Cesia Galvin on 11/19/19 10:[address] spoke with Grecia at [facility] inpatient rehab they have submitted the auth for rehab. I also spoke with patient and at length and they want to be discharged TODAY either [facility] or [facility] DCP- Discharge Planning Updated by [email or web address]: Cesia Galvin on 11/15/19 12:[address] Patient Name: SID WOLF Admission Status: Elective Accout number: [id number] Admission Date: 11-14-2019 : 1960 Admission Diagnosis: Attending: ENMA DESAI Current LOS: 1 Anticipated DC Date: Planned Disposition: Inpatient Rehab Primary Insurance: [facility] Discharge Planning Comments: Received a call from patients to discuss discharge planning needs. Patient lives at home with his , Eduardo. This is his 3rd admission this past month and Eduardo said that he is falling all over the place. He has a walker and a shower chair. He was set up and is current with [facility]. At discharge his would like him to go to inpatient rehab [facility]. I have started the process and faxed h&p with a facesheet to [facility]. At this time he still has OT and PT evals pending. CM will continue to follow and will assist as needed with dc plans/needs. Medicaid Eligibility Specialist: Cesia Galvin DCPIA - Discharge Planning Initial Assessment Updated by [email or web address]: Cesia Galvin on 11/15/19 1:17 pm * Is the patient Alert and Oriented? Yes * How many steps to enter\exit or inside your home? * PCP BRANDEN * [facility] * Preadmission Environment Home with Family * ADLs Independent * Equipment Rolling Walker Shower Chair * List name and contact numbers for known caregivers / representatives who currently or will assist patient after discharge: EDUARDO () [phone] * Community resources currently utilized Home Health * Please name any agencies selected above. [facility] * Additional services required to return to the preadmission environment? Yes * Can the patient safely return to the preadmission environment? No * Has this patient been hospitalized within the prior 30 days at any hospital? Yes Last DP export: 11/19/19 2:21 p Patient Name: ISD WOLF Page 37612 at 1712 All edits/amendments must be made on the electronic document DICTATION DATE: 11/19/191714 MEAT COOLER: ANGELES 11/19/191714 RPT#: [id number] DC DATE:11/19/19 STATUS: DIS IN [facility] [address] [place] [address] END OF REPORT
== END 2019-11-19 16:47 | disposition home health service (06) | DRG 432 ==
LOC: D.M2 17:05 → D.MS 17:12
PROVIDERS: Family Medicine; Internal Medicine Gastroenterology; Radiology Diagnostic Radiology; ADMIT Family Medicine; ATTEND Family Medicine
PROC: 0W9G3ZZ Drainage of Peritoneal Cavity, Percutaneous Approach (ICD-10-PCS; principal; 2019-11-15 15:00)
DX: K70.31 Alcoholic cirrhosis of liver with ascites (principal); G93.41 Metabolic encephalopathy; D53.9 Nutritional anemia, unspecified; K80.50 Calculus of bile duct without cholangitis or cholecystitis without obstruction; K82.8 Other specified diseases of gallbladder

== ENCOUNTER 2019-11-28 00:15 | Inpatient (IN) | payer OTHER ==
[2019-11-28] VITALS (7 sets, daily range): BP systolic 97–133; BP diastolic 52–76; Ht 193 cm; Wt 100.6 kg
[~2019-11-28] VITALS: Ht 193 cm; Wt 100.6 kg
--- NOTE | ~2019-11-28 | EC ---
PATIENT:SID WOLF DATE OF SERVICE: 11/29/19 SEX: M MEDICAL RECORD: [id number] DATE OF : [birth year] LOCATION:D.M2 D.211 AGE OF PATIENT: 59 ADMISSION DATE: 11/29/19 REFERRING PHYSICIAN: INTERPRETING PHYSICIAN: DANAY HUNT MD ECHOCARDIOGRAM REPORT ECHO CHARGES 4 ECHO COMPLETE Date: 11/29/19 CLINICAL DIAGNOSIS: R/O CHF, HX:CIRRHOSIS ECHOCARDIOGRAPHIC MEASUREMENTS (adult normal given) AC root (d.<3.7cm) 3.0 cm LV Septum d (<1.2 cm> 1.4 cm Valve Excursion 1.7 cm LV Septum (systole) 1.9 cm Left Atria (s.<4.0cm> 4.4 cm LVPW d(<1.2cm) 1.1 cm RV (d.<2.3cm) 2.9 cm LVPW (sytole) 1.2 cm LV diastole(<5.6CM) 3.9 cm MV E-F(>70mm/sec) cm LV systole 1.8 cm LVOT Diameter 1.8 cm MV exc.(>10mm) cm Est.ejection fraction (50-75%) % DOPPLER: LVIT cm/sec A 87 cm/sec E 77 cm/sec LA cm/sec RVSP 28.0 mmHg LVOT 147 cm/sec AOP1/2T m/s Asc. Ao 130 cm/sec RVOT 85 cm/sec RA cm/sec PA 115 cm/sec AV Gradient Peak 6.8 mmHg AV Mean 3.8 mmHg AV Area 2.4 cm MV Gradient Peak 4.2 mmHg MV Mean 2.6 mmHg MV Area cm COMMENTS: Angio Technologist: Trey SEXTON Ekg Tech: 3 Dr. Weir TAPE# PACS Pericardial Effusion N DATE OF SERVICE: Adequate 2D, color flow imaging, spectral Doppler, and M-Mode. Borderline LVH. LV internal dimensions are normal. Wall motion is normal. EF is greater than or equal to 55%. Aortic valve is tricuspid. No evidence of stenosis by Doppler interrogation. Left atrium is dilated at 4.4 cm. Mitral valve shows no prolapse. Trace MR. Right-sided chambers grossly normal. Trace TR. ECHOCARDIOGRAM REPORT [id number] SID WOLF TRANSINT:[id number] Voice Confirmation ID: [id number] DOCUMENT ID: [id number] DANAY HUNT MD CC: [id number] DICTATION DATE: 12/02/19 1037 CLOCK SMITH: 12/02/19 1727 DIS IN 12/01/19 [facility] [address] [place] [id number]
[~2019-11-28 00:15] MED LIST changes: +ACETAMINOPHEN500 M1 PO; +C-10001000 MG PO; +LIQUID MINERALS PO; +MULTI-DAY VITAM1 TAB PO; +VITAMIN D 3 PO
[2019-11-28 00:53] LABS: BASOPHILS 0.5 % (0-2); EOSINOPHILS 2.3 % (0-7); HEMATOCRIT 39.7 % (42.0-54.0); HEMOGLOBIN 13.8 g/dL (13.5-17.5); IMMATURE GRANULOCYTES 0.2 % (0-5); LYMPHOCYTES 17.8 % (15-50); MCH 35.1 pg (26.0-34.0); MCHC 34.8 g/dL (31.0-37.0); MEAN PLATELET VOLUME 9.5 fL (7.4-10.4); MONOCYTES 10.4 % (2-11); NEUTROPHILS 68.8 % (40-80); PLATELET COUNT 131 10x3/uL (130-400); RBC 3.93 10x6/uL (4.20-6.10); RDW 17.1 % (11.5-14.5); WBC 9.9 10x3/uL (4.8-10.8)
[2019-11-28 00:57] LABS: INR 1.75 (0.85-1.17); PROTIME 20.2 SECONDS (11.6-15.0)
[2019-11-28 00:58] LABS: APTT 42.3 SECONDS (22.8-39.4)
[2019-11-28 01:02] LABS: CALC OSMOLALITY 268 mosm/kg (275-300); CALCIUM 8.4 mg/dL (8.5-10.1); CARBON DIOXIDE 24.9 mmol/L (21.0-32.0); CHLORIDE - SERUM 100 mmol/L (98-107); GLUCOSE 102 mg/dL (74-106); POTASSIUM - SERUM 4.2 mmol/L (3.5-5.1); SODIUM 135 mmol/L (136-145); UREA NITROGEN 11 mg/dL (7-18); eGFR NON AFRICAN AMERICAN 81 mL/min (90-120)
[2019-11-28 01:18] LABS: ALKALINE PHOSPHATASE 174 U/L (30-120); ALT (SGPT) 71 U/L (10-68); BILIRUBIN - TOTAL 4.32 mg/dL (0.2-1.3); CKMB 0.3 U/L (0.0-3.6); CREATINE KINASE 32 UL (21-232); MAGNESIUM - SERUM 1.8 mg/dL (1.8-2.4); PROTEIN - SERUM 7.2 g/dL (6.4-8.2)
[2019-11-28 01:19] LABS: TROPONIN-I < 0.017 ng/mL (0.000-0.060)
[2019-11-28 02:25] LABS: BILIRUBIN NEGATIVE (NEGATIVE); GLUCOSE NEGATIVE (NEGATIVE); KETONE NEGATIVE (NEGATIVE); NITRITE NEGATIVE (NEGATIVE); UROBILINOGEN NORMAL (NORMAL)
[2019-11-28 02:35] LABS: UDS - AMPHET NEGATIVE QUAL (NEGATIVE); UDS - BARB NEGATIVE QUAL (NEGATIVE); UDS - BENZO POSITIVE QUAL (NEGATIVE); UDS - COCAINE NEGATIVE QUAL (NEGATIVE); UDS - OPIATE NEGATIVE QUAL (NEGATIVE); UDS - PCP NEGATIVE QUAL (NEGATIVE); UDS - THC POSITIVE QUAL (NEGATIVE)
--- NOTE | 2019-11-28 03:59 | NUR ---
PATIENT ARRIVED FROM ER. PATIENT IS ALERT AND ORIENTED, RESTLESS WHILE LAYING IN BED. ATTEMPTED TO HELP PATIENT READJUST. WHILE ATTEMPTING TO DO MED REC. PATIENT WAS NOT COOPERATIVE. JUST STATED "I TOOK ALL MY MEDS TODAY. MY GIVES THEM TO ME. ATTEMPTED TO CALL PATIENT , WHICH WAS UNSUCCESSFUL. WILL TRY AGAIN PRIOR TO LEAVING THIS MORNING. NO S/S OF DISTRESS. NO C/O PAIN. CALL LIGHT WITHIN REACH. WILL CPOC.
--- NOTE | 2019-11-28 19:30 | NUR ---
RECEIVED BEDSIDE REPORT. PATIENT IS ALERT AND ORIENTED, RESTING COMFORTABLY IN BED. RESPIRATIONS ARE EVEN AND UNLABORED. NO S/S OF DISTRESS. NO C/O PAIN. CALL LIGHT WITHIN REACH. WILL CPOC.
[2019-11-29 04:00] VITALS: BP 116/68
[2019-11-29 05:30] LABS: BASOPHILS 0.8 % (0-2); EOSINOPHILS 5.3 % (0-7); HEMATOCRIT 35.2 % (42.0-54.0); HEMOGLOBIN 12.2 g/dL (13.5-17.5); IMMATURE GRANULOCYTES 0.3 % (0-5); LYMPHOCYTES 21.4 % (15-50); MCH 35.1 pg (26.0-34.0); MCHC 34.7 g/dL (31.0-37.0); MCV 101.1 fL (80.0-100.0); MONOCYTES 11.6 % (2-11); NEUTROPHILS 60.6 % (40-80); PLATELET COUNT 125 10x3/uL (130-400); RBC 3.48 10x6/uL (4.20-6.10); RDW 17.1 % (11.5-14.5); WBC 7.6 10x3/uL (4.8-10.8)
[2019-11-29 06:43] LABS: ALBUMIN 2.4 g/dL (3.4-5.0); ALKALINE PHOSPHATASE 125 U/L (30-120); ALT (SGPT) 64 U/L (10-68); BILIRUBIN - TOTAL 4.25 mg/dL (0.2-1.3); CALC OSMOLALITY 271 mosm/kg (275-300); CARBON DIOXIDE 22.5 mmol/L (21.0-32.0); CHLORIDE - SERUM 105 mmol/L (98-107); GLUCOSE 81 mg/dL (74-106); POTASSIUM - SERUM 4.8 mmol/L (3.5-5.1); PROTEIN - SERUM 5.7 g/dL (6.4-8.2); SODIUM 137 mmol/L (136-145); UREA NITROGEN 10 mg/dL (7-18)
[2019-11-29 06:51] LABS: CREATININE - SERUM 0.7 mg/dL (0.6-1.3); eGFR NON AFRICAN AMERICAN > 90 mL/min (90-120)
--- NOTE | 2019-11-29 07:15 | NUR ---
RECEIVED PT IN BED EYES CLOSED RESP UNLABORED SKIN W/D NAD NOTED
[2019-11-29 09:14] VITALS: BP 116/70
--- NOTE | 2019-11-29 12:05 | NUR ---
OT NOTE: ATTEMPTED EVAL, HOWEVER OUT FOR STRESS TEST. BOBO GOLDBERG, OTR/L
[2019-11-29 12:18] VITALS: BP 117/78
[2019-11-29 17:15] VITALS: BP 121/78
--- NOTE | 2019-11-29 19:30 | NUR ---
REPORT RECIEVED AND INITIAL ROUNDS COMPLETED. PT RESTING IN BED. IV ATIVAN GIVEN EARLIER AND PT NOW RESTING WITH NO DISTRESS.
[2019-11-29 21:21] VITALS: BP 95/50
--- NOTE | 2019-11-29 22:00 | NUR ---
BEDTIME MEDS GIVEN. PT MORE AWAKE. CONFUSED CONVERSATION. UNABLE TO FOLLOW IN CONVERSATION. EASILY IRRITATED. CPOC.
[2019-11-30] VITALS: BP 120/79
--- NOTE | 2019-11-30 02:15 | NUR ---
MEDICATED WITH ATIVAN IV AND MORHPHINE IV FOR AGITATION/IRRITABILITY AND LEFT RIB PAIN. PT STILL DIFFICULT TO FOLLOW IN CONVERSATION. SOME CONFUSION NOTED. CPOC.
[2019-11-30 04:49] VITALS: BP 108/68
[2019-11-30 05:11] LABS: BASOPHILS 0.7 % (0-2); EOSINOPHILS 4.1 % (0-7); HEMOGLOBIN 11.8 g/dL (13.5-17.5); IMMATURE GRANULOCYTES 0.3 % (0-5); LYMPHOCYTES 22.2 % (15-50); MCH 35.3 pg (26.0-34.0); MCHC 34.7 g/dL (31.0-37.0); MCV 101.8 fL (80.0-100.0); MEAN PLATELET VOLUME 9.8 fL (7.4-10.4); MONOCYTES 10.1 % (2-11); NEUTROPHILS 62.6 % (40-80); PLATELET COUNT 115 10x3/uL (130-400); RBC 3.34 10x6/uL (4.20-6.10); RDW 17.3 % (11.5-14.5); WBC 7.1 10x3/uL (4.8-10.8)
[2019-11-30 05:27] LABS: ALBUMIN 2.2 g/dL (3.4-5.0); ALKALINE PHOSPHATASE 120 U/L (30-120); ALT (SGPT) 51 U/L (10-68); BILIRUBIN - TOTAL 3.89 mg/dL (0.2-1.3); CALC OSMOLALITY 269 mosm/kg (275-300); CALCIUM 8.2 mg/dL (8.5-10.1); CARBON DIOXIDE 23.4 mmol/L (21.0-32.0); CHLORIDE - SERUM 106 mmol/L (98-107); CREATININE - SERUM 0.7 mg/dL (0.6-1.3); GLUCOSE 91 mg/dL (74-106); POTASSIUM - SERUM 4.2 mmol/L (3.5-5.1); PROTEIN - SERUM 5.5 g/dL (6.4-8.2); SODIUM 136 mmol/L (136-145); UREA NITROGEN 8 mg/dL (7-18); eGFR NON AFRICAN AMERICAN > 90 mL/min (90-120)
--- NOTE | 2019-11-30 06:47 | NUR ---
PAGE TO OSMIN BRIAN AND REPORTED CRITICAL AMMONIA OF 92. NEW ORDER FOR LACTULOSE 30ML TID RECIEVED.
--- NOTE | 2019-11-30 08:58 | NUR ---
PT AWAKE AND CONFUSED WHEN I ENTERED THE ROOM THIS AM. HE WAS UP TO THE BATHROOM AND HAD TANGLED HIMSELF IN HIS I/V TUBING, CONSEQUENTLY PULLING HIS IV OUT. WILL RESITE AT FIRST OPPORTUNITY. PT IS OTHERWISE PLESANT, STATES HE HAS NOT HAD A BM IN 4 OR 5 DAYS, INFROMED HIM THE LACTOLOSE I'M GIVING FOR HIS HIGH AMONIA WILL HELP WITH THAT PROBLEM. PT IS COOPERATIVE. CL IN REACH, SRX2.
[2019-11-30 10:44] VITALS: BP 113/71
--- NOTE | 2019-11-30 12:10 | NUR ---
PT ALERT AND CONFUSED, ATTEMTPED I/V RESTART BUT PT WOULD NOT ALLOW AT THIS TIME. WILL CONT. TO ATTEMPT. CL IN REACH, SRX2.
[2019-11-30 12:59] VITALS: BP 123/76
--- NOTE | 2019-11-30 15:25 | NUR ---
PT RESTING COMFORTABLY, BREATHS EVEN/REGULAR AND UNLABORED. NO SIGNS OR SYMTPOMS OF ACUTE DISTRESS NOTED AT THIS TIME. CL IN REACH, SRX2. DID NOT FURTHER DISTURB.
[2019-11-30 16:00] VITALS: BP 128/77
--- NOTE | 2019-11-30 17:55 | NUR ---
I CONCUR WITH THIS VARNISH DIPPER ASSESMENT OF THIS PATIENT.
--- NOTE | 2019-11-30 19:45 | NUR ---
REPORT RECIEVED AND INITIAL ROUNDS COMPLETED. PT RESTING IN BED WITH EYES CLOSED. SR PER TELEMETRY. NONLABORED RESPIRATIONS ON ROOM AIR. IVF HAVE BEEN SALINE LOCKED. IV TO RFA PATENT. CPOC.
[2019-11-30 20:00] VITALS: BP 105/65
[2019-12-01] VITALS: BP 145/88
--- NOTE | 2019-12-01 02:38 | NUR ---
AWAKE AND RESTING IN HIS BED. DISORIENTED TO TIME. BEHAVIORS HAVE BEEN CALM AND APPROPRIATE. IVF SALINE LOCKED. PT DRINKING PLENTY OF FREE WATER. CPOC.
[2019-12-01 04:00] VITALS: BP 106/65
[2019-12-01 05:35] LABS: BASOPHILS 0.7 % (0-2); EOSINOPHILS 3.6 % (0-7); HEMATOCRIT 35.4 % (42.0-54.0); HEMOGLOBIN 12.3 g/dL (13.5-17.5); IMMATURE GRANULOCYTES 0.2 % (0-5); LYMPHOCYTES 16.5 % (15-50); MCH 34.9 pg (26.0-34.0); MCHC 34.7 g/dL (31.0-37.0); MCV 100.6 fL (80.0-100.0); MEAN PLATELET VOLUME 9.3 fL (7.4-10.4); MONOCYTES 13.8 % (2-11); NEUTROPHILS 65.2 % (40-80); PLATELET COUNT 115 10x3/uL (130-400); RBC 3.52 10x6/uL (4.20-6.10); RDW 17.1 % (11.5-14.5); WBC 8.2 10x3/uL (4.8-10.8)
[2019-12-01 05:59] LABS: ALBUMIN 2.5 g/dL (3.4-5.0); ALKALINE PHOSPHATASE 112 U/L (30-120); ALT (SGPT) 54 U/L (10-68); BILIRUBIN - TOTAL 4.68 mg/dL (0.2-1.3); CALC OSMOLALITY 269 mosm/kg (275-300); CALCIUM 8.4 mg/dL (8.5-10.1); CARBON DIOXIDE 24.6 mmol/L (21.0-32.0); CHLORIDE - SERUM 104 mmol/L (98-107); CREATININE - SERUM 0.8 mg/dL (0.6-1.3); GLUCOSE 99 mg/dL (74-106); POTASSIUM - SERUM 3.8 mmol/L (3.5-5.1); SODIUM 136 mmol/L (136-145); UREA NITROGEN 7 mg/dL (7-18); eGFR NON AFRICAN AMERICAN > 90 mL/min (90-120)
--- NOTE | 2019-12-01 07:30 | NUR ---
PT AWAKE AND CONFUSED WHEN I ENTERED THE ROOM, MOANING BUT DENIES NEED FOR PAIN MEDS. CL IN REACH, SRX2.
[2019-12-01 09:18] VITALS: BP 138/74
--- NOTE | 2019-12-01 09:37 | NUR ---
PT HAS MADE MULTIPLE PHONE CALLS TO VARIOUS DESKS AT THE HOSPITAL WANTING HIS , I CALLED HER TWICE AND CAN'T GET HER TO PERSONAL [employer]ANION BUT DID LEAVE A MESSAGE ASKING HER TO CALL HIM, LEFT THE NUMBER TO HIS ROOM.
--- NOTE | 2019-12-01 10:00 | ST ---
PATIENT:SID WOLF MEDICAL RECORD: [id number] SEX: M LOCATION:D. D.211 ORDER #: ADMISSION DATE: 11/29/19 AGE OF PATIENT: 59 REFERRING PHYSICIAN: INTERPRETING PHYSICIAN: TOMÁS BACA MD DATE OF SERVICE: 11/29/2019 STUDY DATE: 11/29/2019 PROCEDURE: Lexiscan directed stress test. PROCEDURE IN DETAIL: The patient was brought into the cardiac stress lab in a stable condition, placed in supine position on the nuclear stress table. The patient underwent a standard Lexiscan protocol. FINDINGS: The stress imaging showed no evidence of significant ischemia or infarction. The patient's overall ejection fraction was 65% with no evidence of wall motion abnormalities. IMPRESSION: This is a normal nuclear stress test with normal left ventricular ejection fraction. RECOMMENDATIONS: Continue medical management. TRANSINT:[id number] Voice Confirmation ID: [id number] DOCUMENT ID: [id number] OTMÁS BACA MD at 1000 CC: [id number] DICTATION DATE: 11/29/19 1447 DIRECTOR PAYER: 11/29/19 1739 ADM IN [facility] [address] [place] [address]
[2019-12-01 12:56] VITALS: BP 117/64
[2019-12-01] MEDS ORDERED: Nicoderm [PBKC] TRANSDERM (14:19)
[2019-12-01] MEDS ORDERED: CHRONULAC30 ML PO (14:33)
--- NOTE | 2019-12-01 14:47 | NUR ---
ALINA HUA SPOKE AT LENGTH WITH PTS .
--- NOTE | 2019-12-01 15:32 | NUR ---
PT ESCORTED OUT VIA WHEELCHIAR TO DAUGHTER POV.
--- NOTE | 2019-12-01 19:20 | MORECARE ---
CASE MANAGEMENT DISCHARGE SUMMARY PATIENT: SID WOLF UNIT: [id number] ADM DATE: 11/29/19 AGE: 59 : 56 SEX: M ROOM/BED: D.2115 AUTHOR: MERRILL ELIZABETH PHYSICIAN: REFERRING PHYSICIAN: RASHI JOHNSON MD DATE OF SERVICE: 12/01/19 Discharge Plan Patient Name: SID WOLF [facility] [facility] 1960 Planned Disposition: Home with Home Health Anticipated Discharge Date: Discharge Date: 12/01/2019 Expected LOS: Initial Reviewer: [email or web address] Initial Review Date: 11/28/2019 Generated: 12/01/19 8:19 pm Comments DCP- Discharge Planning Updated by [email or web address]: Charline Cm on 12/01/19 6:[address] Patient Name: SID WOLF Admission Status: ER Accout number: [id number] Admission Date: 11-29-2019 : 1960 Admission Diagnosis:UNSPECIFIED ABDOMINAL PAIN Attending: RASHI JOHNSON Current LOS: 2 Anticipated DC Date: Planned Disposition: Home with Home Health Primary Insurance: TRICAREER Discharge Planning Comments: CM NOTIFIED OF PATIENT'S DISCHARGE. PATIENT STATES HE IS GOING HOME WITH HIS AND DENIES ANY DISCHARGE NEEDS. CM NOTICED ON PREVIOUS ADMISSION THAT PATIENT HAD [facility]. CM WILL SEND UPDATE TO [facility]. CM WILL CONTINUE TO FOLLOW AND ASSIST NEEDED WITH DISCHARGE PLANNING / NEEDS. Adobe Developer: Charline Cm External Providers External Provider: [facility] Next Contact Date: Service Request Date: Service Type: Resolution: Reviewer: Comments: Patient Name: SID WOLF Page 47259 at 1920 All edits/amendments must be made on the electronic document DICTATION DATE: 12/01/191918 HOSPICE LIAISON: ANGELES 12/01/191918 RPT#: [id number] DC DATE:12/01/19 STATUS: DIS IN [facility] [address] [place] [address] END OF REPORT
== END 2019-12-01 15:33 | disposition home health service (06) | DRG 444 ==
LOC: D.ER 00:15 → OBSVTIME 03:11 → D.M2 03:11
PROVIDERS: Family Medicine; ADMIT Family Medicine; ATTEND Family Medicine
DX: K80.20 Calculus of gallbladder without cholecystitis without obstruction (principal); G93.41 Metabolic encephalopathy; E43 Unspecified severe protein-calorie malnutrition; K70.31 Alcoholic cirrhosis of liver with ascites; D53.9 Nutritional anemia, unspecified; Z68.25 Body mass index [BMI] 25.0-25.9, adult; Z66 Do not resuscitate

== ENCOUNTER 2019-12-12 18:00 | Inpatient (IN) | payer OTHER ==
[~2019-12-12] VITALS: Ht 193 cm; Wt 104.3 kg
[~2019-12-12 18:00] MED LIST changes: +CHRONULAC30 ML PO; +Nicoderm [PBKC] TRANSDERM
[2019-12-12] MEDS ORDERED: OXYCONTIN10 MG PO (18:22)
[2019-12-12 19:15] LABS: BASOPHILS 0.4 % (0-2); EOSINOPHILS 3.4 % (0-7); HEMATOCRIT 26.7 % (42.0-54.0); HEMOGLOBIN 9.2 g/dL (13.5-17.5); IMMATURE GRANULOCYTES 0.3 % (0-5); LYMPHOCYTES 22.5 % (15-50); MCH 35.4 pg (26.0-34.0); MCHC 34.5 g/dL (31.0-37.0); MCV 102.7 fL (80.0-100.0); MEAN PLATELET VOLUME 8.9 fL (7.4-10.4); MONOCYTES 10.1 % (2-11); NEUTROPHILS 63.3 % (40-80); RDW 16.3 % (11.5-14.5); WBC 12.2 10x3/uL (4.8-10.8)
[2019-12-12 19:23] LABS: PLATELET COUNT 142 10x3/uL (130-400)
[2019-12-12 19:31] LABS: CALC OSMOLALITY 260 mosm/kg (275-300); CALCIUM 8.4 mg/dL (8.5-10.1); CARBON DIOXIDE 25.3 mmol/L (21.0-32.0); CHLORIDE - SERUM 96 mmol/L (98-107); CREATININE - SERUM 1.1 mg/dL (0.6-1.3); GLUCOSE 103 mg/dL (74-106); POTASSIUM - SERUM 3.9 mmol/L (3.5-5.1); SODIUM 130 mmol/L (136-145); UREA NITROGEN 13 mg/dL (7-18); eGFR NON AFRICAN AMERICAN 72 mL/min (90-120)
[2019-12-12 19:35] LABS: BILIRUBIN NEGATIVE (NEGATIVE); GLUCOSE NEGATIVE (NEGATIVE); KETONE NEGATIVE (NEGATIVE); NITRITE NEGATIVE (NEGATIVE)
[2019-12-12 19:42] LABS: UDS - AMPHET NEGATIVE QUAL (NEGATIVE); UDS - BARB NEGATIVE QUAL (NEGATIVE); UDS - BENZO POSITIVE QUAL (NEGATIVE); UDS - COCAINE NEGATIVE QUAL (NEGATIVE); UDS - OPIATE NEGATIVE QUAL (NEGATIVE); UDS - PCP NEGATIVE QUAL (NEGATIVE); UDS - THC POSITIVE QUAL (NEGATIVE)
[2019-12-12 19:45] LABS: APTT 42.3 SECONDS (22.8-39.4); INR 1.88 (0.85-1.17); PROTIME 21.4 SECONDS (11.6-15.0)
[2019-12-12 19:48] LABS: ALBUMIN 3.2 g/dL (3.4-5.0); ALKALINE PHOSPHATASE 130 U/L (30-120); ALT (SGPT) 57 U/L (10-68); BILIRUBIN - TOTAL 6.37 mg/dL (0.2-1.3); CKMB 0.4 U/L (0.0-3.6); CREATINE KINASE 49 UL (21-232); PROTEIN - SERUM 6.6 g/dL (6.4-8.2); THYROID STIMULATING HORMONE 1.19 uIU/mL (0.36-3.74); TROPONIN-I < 0.017 ng/mL (0.000-0.060)
--- NOTE | 2019-12-12 21:15 | NUR ---
PT TRANSPORTED TO THE FLOOR VIA STRETCHER, CALLED PHARMACY AGAIN FOR BANANA BAG. THEY WILL CALL BACK. FLOOR NURSESHANTELL NOTIFIFED. CONSENT FORMS PRINTED AND DELIVERED TO FLOOR NURSE.
--- NOTE | 2019-12-12 21:20 | NUR ---
PATIENT ARRIVED OF FLOOR VIA BED WITH ER STAFF. NO S/S OF ACUTE DISTRESS. NO C/O OF DISTRESS. PATIENT HAS IV IN LEFT AC, SALINE LOC AT THIS TIME. PATIENT IS A DNR. PATIENT HAS BRUISING ON LOWER BACK AND ON THE TOP OF BOTH BUTTOCKS FROM FALL AT HOME. PATIENT HAS BRUISING ON LEFT HAND FROM PREVIOUS IV STICKS. PATIENT IS A FALL RISK AND TED BED IS ON. CALL LIGHT WITHIN REACH. WILL CONTINUE TO MONITOR.
--- NOTE | 2019-12-12 22:12 | NUR ---
STARTED PATIENT'S BLOOD. NO S/S OF ACUTE DISTRESS. NO C/O AT THIS TIME. VITALS ARE STABLE. CALL LIGHT WITHIN REACH. WILL CONTINUE TO MONITOR.
[2019-12-12 22:14] VITALS: BP 125/69; BMI 28.0
--- NOTE | 2019-12-13 00:44 | NUR ---
PATIENT'S BLOOD IS FINISHED. NO S/S OF ACUTE DISTRESS. NO C/O AT THIS TIME. VITALS ARE STABLE. CALL LIGHT WITHIN REACH. WILL CONTINUE TO MONITOR.
--- NOTE | 2019-12-13 01:16 | NUR ---
PAGED NOLAN WALSH APN. PATIENT'S BLOOD FINISHED, BUT I NEED CLARIFICATION IF ANOTHER BAG OF BLOOD NEEDS TO BE INFUSED. THE ORDER HAS NO SPECIFIC AMOUNT TO BE GIVEN. WILL CONTINUE TO MONITOR.
--- NOTE | 2019-12-13 03:30 | NUR ---
NOLAN WALSH APN, CALLED BACK AND SAID HE ONLY WANTED TO INFUSED ONE BAG SINCE HIS H&H WERE 9.4 AND 27. NOLAN SAID TO JUST RECHECK WITH MORNING LABS. CALL LIGHT WITHIN REACH. BED ALARM ON. WILL CONTINUE TO MONITOR.
[2019-12-13 04:00] VITALS: BP 108/55
[2019-12-13 05:50] LABS: BASOPHILS 0.5 % (0-2); EOSINOPHILS 4.7 % (0-7); HEMATOCRIT 25.8 % (42.0-54.0); HEMOGLOBIN 8.8 g/dL (13.5-17.5); IMMATURE GRANULOCYTES 0.3 % (0-5); LYMPHOCYTES 24.2 % (15-50); MCHC 34.1 g/dL (31.0-37.0); MEAN PLATELET VOLUME 9.5 fL (7.4-10.4); MONOCYTES 11.5 % (2-11); NEUTROPHILS 58.8 % (40-80); PLATELET COUNT 127 10x3/uL (130-400); RBC 2.59 10x6/uL (4.20-6.10); RDW 18.6 % (11.5-14.5); WBC 9.6 10x3/uL (4.8-10.8)
[2019-12-13 06:09] LABS: APTT 34.1 SECONDS (22.8-39.4); INR 1.98 (0.85-1.17); PROTIME 22.3 SECONDS (11.6-15.0)
[2019-12-13 06:13] LABS: MCV 99.6 fL (80.0-100.0)
[2019-12-13 06:34] LABS: ALBUMIN 2.7 g/dL (3.4-5.0); ALKALINE PHOSPHATASE 113 U/L (30-120); ALT (SGPT) 50 U/L (10-68); AMYLASE - SERUM 35 U/L (25-115); BILIRUBIN - TOTAL 6.88 mg/dL (0.2-1.3); CALC OSMOLALITY 264 mosm/kg (275-300); CALCIUM 8.1 mg/dL (8.5-10.1); CARBON DIOXIDE 21.3 mmol/L (21.0-32.0); CHLORIDE - SERUM 100 mmol/L (98-107); CREATININE - SERUM 1.1 mg/dL (0.6-1.3); FERRITIN 435 ng/mL (3-244); GLUCOSE 91 mg/dL (74-106); LIPASE 95 U/L (73-393); MAGNESIUM - SERUM 2.1 mg/dL (1.8-2.4); PHOSPHOROUS 3.4 mg/dL (2.5-4.9); POTASSIUM - SERUM 3.7 mmol/L (3.5-5.1); PRO BNP 110 pg/mL (0-125); PROTEIN - SERUM 5.7 g/dL (6.4-8.2); SODIUM 132 mmol/L (136-145); UREA NITROGEN 12 mg/dL (7-18); eGFR NON AFRICAN AMERICAN 72 mL/min (90-120)
[2019-12-13 06:37] LABS: TROPONIN-I < 0.017 ng/mL (0.000-0.060)
[2019-12-13 08:56] VITALS: BP 112/55
--- NOTE | 2019-12-13 09:10 | NUR ---
PT RESTING QUIETLY IN BED. RESP EVEN AND UNLABORED. PT REPORTS PAIN 9/10 AT THIS TIME. PAIN MEDS TO BE ADMINISTERED PER MD ORDERS. IV TO LEFT AC WITH NS @ 75ML/HR INFUSING VIA PUMP. SITE WITHOUT REDNESS OR EDEMA. DENIES FURTHER NEEDS AT THIS TIME. CL WITHIN REACH. ENCOURAGED TO CALL WITH NEEDS. CONTINUE POC
--- NOTE | 2019-12-13 09:12 | MORECARE ---
CASE MANAGEMENT DISCHARGE SUMMARY PATIENT: SID WOLF UNIT: [id number] ADM DATE: 12/12/19 AGE: 59 : 56 SEX: M ROOM/BED: D.2204 AUTHOR: MERRILL ELIZABETH PHYSICIAN: REFERRING PHYSICIAN: JACQUELYN OTERO DO DATE OF SERVICE: 12/13/19 Discharge Plan Patient Name: SID WOLF [facility] [facility] 1960 Planned Disposition: Home with Home Health Anticipated Discharge Date: Discharge Date: Expected LOS: Initial Reviewer: [email or web address] Initial Review Date: 12/12/2019 Generated: 12/13/19 10:11 am Patient Name: SID WOLF Page 38915 at 0912 All edits/amendments must be made on the electronic document DICTATION DATE: 12/13/19910 DIRECTOR OF [facility]IGHB[facility]HOOD [facility]ICE [facility]: ANGELES 12/13/19910 RPT#: [id number] DC DATE: STATUS: ADM IN [facility] [address] [place] [address] END OF REPORT
--- NOTE | 2019-12-13 09:20 | MORECARE ---
CASE MANAGEMENT DISCHARGE SUMMARY PATIENT: SID WOLF UNIT: [id number] ADM DATE: 12/12/19 AGE: 59 : 56 SEX: M ROOM/BED: D.2204 AUTHOR: MERRILL ELIZABETH PHYSICIAN: REFERRING PHYSICIAN: JACQUELYN OTERO DO DATE OF SERVICE: 12/13/19 Discharge Plan Patient Name: SID WOLF [facility] [facility] 1960 Planned Disposition: Home with Home Health Anticipated Discharge Date: Discharge Date: Expected LOS: Initial Reviewer: [email or web address] Initial Review Date: 12/12/2019 Generated: 12/13/19 10:19 am DCPIA - Discharge Planning Initial Assessment Updated by [email or web address]: Cesia Galvin on 12/13/19 9:17 am * Is the patient Alert and Oriented? Yes * PCP BRANDEN * Pharmacy [facility] [address] * Preadmission Environment Home with Family * ADLs Partial Dependent * Partial ADLs (Assistance needed) Ambulation Medication Management * Equipment Rolling Walker Shower Chair * List name and contact numbers for known caregivers / representatives who currently or will assist patient after discharge: EDUARDO () [phone] * Verbal permission to speak to the caregivers and representatives has been obtained from the patient. N/A * Community resources currently utilized Other Private Duty Care * Please name any agencies selected above. CURRENT WITH [facility] WITH PT "SWIMMING POOL SERVICEPERSON" * Additional services required to return to the preadmission environment? Yes * Can the patient safely return to the preadmission environment? Yes * Has this patient been hospitalized within the prior 30 days at any hospital? Yes Last DP export: 12/13/19 8:12 a Patient Name: SID WOLF Page 42266 at 0920 All edits/amendments must be made on the electronic document DICTATION DATE: 12/13/19918 SHUTTLE VAN DRIVER: ANGELES 12/13/19918 RPT#: [id number] DC DATE: STATUS: ADM IN [facility] [address] [place] [address] END OF REPORT
--- NOTE | 2019-12-13 09:27 | MORECARE ---
CASE MANAGEMENT DISCHARGE SUMMARY PATIENT: SID WOLF UNIT: [id number] ADM DATE: 12/12/19 AGE: 59 : 56 SEX: M ROOM/BED: D.2204 AUTHOR: GLENNDOC PHYSICIAN: REFERRING PHYSICIAN: JACQUELYN OTERO DO DATE OF SERVICE: 12/13/19 Discharge Plan Patient Name: SID WOLF Facility: [facility]:[place] : 1960 Planned Disposition: Home with Home Health Anticipated Discharge Date: Discharge Date: Expected LOS: Initial Reviewer: [email or web address] Initial Review Date: 12/12/2019 Generated: 12/13/19 10:26 am Comments DCP- Discharge Planning Updated by [id number]: Cesia Galvin on 12/13/19 8:[address] Patient Name: SID WOLF Admission Status: ER Accout number: [id number] Admission Date: 12-12-2019 : 1960 Admission Diagnosis: Attending: JACQUELYN OTERO Current LOS: 1 Anticipated DC Date: Planned Disposition: Home with Home Health [facility] Discharge Planning Comments: CM met with patient to complete initial dc planning assessment. CM educated patient on the CM role and verbal consent given by patient to complete assessment. Patient lives at home with his where he is partially independent with his care. He needs help with his medications and he has been falling more. At discharge patient plans to return home and feels this is a safe discharge. CM discussed availability of home health, rehab services, and medical equipment. He is current with Home Health with [facility] and with PT. He also stated that his has hired a "Gravedigger" who comes 3 nights during the week so his can get a good night sleep. CONCETTA signed and placed in chart. Patient denied known discharge needs at this time. CM will continue to follow and will assist as needed with dc plans/needs. Feed Project Engineer: Cesia Galvin DCPIA - Discharge Planning Initial Assessment Updated by [email or web address]: Cesia Galvin on 12/13/19 9:17 am * Is the patient Alert and Oriented? Yes * PCP BRANDEN * Pharmacy [facility] [address] * Preadmission Environment Home with Family * ADLs Partial Dependent * Partial ADLs (Assistance needed) Ambulation Medication Management * Equipment Rolling Walker Shower Chair * List name and contact numbers for known caregivers / representatives who currently or will assist patient after discharge: EDUARDO () [phone] * Verbal permission to speak to the caregivers and representatives has been obtained from the patient. N/A * Community resources currently utilized Other Private Duty Care * Please name any agencies selected above. CURRENT WITH [facility] WITH PT "LEAD SYSTEMS ENGINEER" * Additional services required to return to the preadmission environment? Yes * Can the patient safely return to the preadmission environment? Yes * Has this patient been hospitalized within the prior 30 days at any hospital? Yes Coverage Notice Reviewer: [email or web address] Wolfgang Galvin Notice Issued Date-Time: 12/13/2019 9:00 Notice Type: Patient Choice Letter Notice Delivered To: Patient Relationship to Patient: Nut Steamer Name: Delivery Method: - Laura Days: Prior Verbal Notification: Recipient Understood Notice: Yes Recipient Signature: Yes Med Rec Note Co-signed by Attending: Coverage Notice Comment: concetta with [facility] Last DP export: 12/13/19 8:20 a Patient Name: SID WOLF Page [phone] at 0927 All edits/amendments must be made on the electronic document DICTATION DATE: 12/13/19925 BUSINESS MANAGEMENT MANAGER: ANGELES 12/13/19925 RPT#: [id number] DC DATE: STATUS: ADM IN [facility] [address] [place] [address] END OF REPORT
[2019-12-13 11:37] LABS: HEMATOCRIT 23.7 % (42.0-54.0); HEMOGLOBIN 8.4 g/dL (13.5-17.5)
[2019-12-13 12:42] VITALS: Ht 193 cm; Wt 104.3 kg
[2019-12-13 13:36] VITALS: BP 115/65
[2019-12-13 17:04] LABS: HEMATOCRIT 21.9 % (42.0-54.0); HEMOGLOBIN 7.7 g/dL (13.5-17.5)
[2019-12-13 18:31] VITALS: BP 115/67
[2019-12-13 20:00] VITALS: BP 116/62
--- NOTE | 2019-12-13 20:10 | NUR ---
KARAN SOLORIO NOTIFIED OF HGB 7.7,HCT 21.9. ORDERS RECEIVED TO INFUSE 2 UNITS PRBC. LAB NOTIFIED. BLOOD CONCENT SIGNED.
--- NOTE | 2019-12-13 20:20 | NUR ---
FIRST UNIT PRBC STARTED WITH NO REACTIONS NOTED.
--- NOTE | 2019-12-13 23:20 | NUR ---
FIRST UNIT PRBC COMPLETED WITHOUT REACTIONS NOTED. 2ND UNIT STARTED WITH NO REACTIONS NOTED.
--- NOTE | 2019-12-14 01:39 | NUR ---
2ND UNIT PRBC COMPLETED WITHOUT REACTIONS NOTED.
--- NOTE | 2019-12-14 03:39 | NUR ---
I have reviewed this patient and I concur with the Shift Assessment completed by the Licensed Practical Nurse today this shift.
[2019-12-14 04:00] VITALS: BP 91/47
[2019-12-14 06:37] LABS: BASOPHILS 0.4 % (0-2); EOSINOPHILS 6.9 % (0-7); IMMATURE GRANULOCYTES 0.3 % (0-5); LYMPHOCYTES 27.9 % (15-50); MCH 33.1 pg (26.0-34.0); MCHC 34.5 g/dL (31.0-37.0); MEAN PLATELET VOLUME 8.9 fL (7.4-10.4); MONOCYTES 14.4 % (2-11); NEUTROPHILS 50.1 % (40-80); PLATELET COUNT 108 10x3/uL (130-400); RBC 2.96 10x6/uL (4.20-6.10); RDW 21.9 % (11.5-14.5)
[2019-12-14 06:44] LABS: HEMATOCRIT 28.4 % (42.0-54.0); HEMOGLOBIN 9.8 g/dL (13.5-17.5); MCV 95.9 fL (80.0-100.0); WBC 6.8 10x3/uL (4.8-10.8)
--- NOTE | 2019-12-14 07:15 | NUR ---
REC'D IN BED WITH NOTED CONFUSION. RESP EVEN AND UNLABORED WITH NO DISTRESS NOTED. CAN EXPRESS NEEDS AND WANTS. NO C/O NOTED OR VOICED. ASSESSMENT COMPLETED. C/L IN REACH AT BEDSIDE.
[2019-12-14 07:20] LABS: ALBUMIN 2.7 g/dL (3.4-5.0); ALKALINE PHOSPHATASE 88 U/L (30-120); ALT (SGPT) 50 U/L (10-68); CALC OSMOLALITY 263 mosm/kg (275-300); CALCIUM 7.8 mg/dL (8.5-10.1); CARBON DIOXIDE 24.6 mmol/L (21.0-32.0); CHLORIDE - SERUM 101 mmol/L (98-107); CREATININE - SERUM 0.8 mg/dL (0.6-1.3); GLUCOSE 90 mg/dL (74-106); MAGNESIUM - SERUM 1.9 mg/dL (1.8-2.4); PHOSPHOROUS 3.4 mg/dL (2.5-4.9); POTASSIUM - SERUM 3.5 mmol/L (3.5-5.1); PROTEIN - SERUM 5.5 g/dL (6.4-8.2); SODIUM 133 mmol/L (136-145); UREA NITROGEN 8 mg/dL (7-18); eGFR NON AFRICAN AMERICAN > 90 mL/min (90-120)
[2019-12-14 08:20] VITALS: BP 112/62
[2019-12-14 12:11] VITALS: BP 95/49
[2019-12-14] MEDS ORDERED: Nicoderm [PBKC] TRANSDERM (14:02)
--- NOTE | 2019-12-14 14:20 | MORECARE ---
CASE MANAGEMENT DISCHARGE SUMMARY PATIENT: SID WOLF UNIT: [id number] ADM DATE: 12/12/19 AGE: 59 : 56 SEX: M ROOM/BED: D.2204 AUTHOR: GLENNDOC PHYSICIAN: REFERRING PHYSICIAN: JACQUELYN OTERO DO DATE OF SERVICE: 12/14/19 Discharge Plan Patient Name: SID WOLF [facility]:[place] : 1960 Planned Disposition: Home with Home Health Anticipated Discharge Date: Discharge Date: Expected LOS: Initial Reviewer: [email or web address] Initial Review Date: 12/12/2019 Generated: 12/14/19 3:19 pm Comments DCP- Discharge Planning Updated by [email or web address]: Cesia Galvin on 12/13/19 8:[address] Patient Name: SID WOLF Admission Status: ER Accout number: [id number] Admission Date: 12-12-2019 : 1960 Admission Diagnosis: Attending: JACQUELYN OTERO Current LOS: 1 Anticipated DC Date: Planned Disposition: Home with Home Health Primary Insurance: [employer] Discharge Planning Comments: CM met with patient to complete initial dc planning assessment. CM educated patient on the CM role and verbal consent given by patient to complete assessment. Patient lives at home with his where he is partially independent with his care. He needs help with his medications and he has been falling more. At discharge patient plans to return home and feels this is a safe discharge. CM discussed availability of home health, rehab services, and medical equipment. He is current with Home Health with [place] and with PT. He also stated that his has hired a "System Dispatcher" who comes 3 nights during the week so his can get a good night sleep. CONCETTA signed and placed in chart. Patient denied known discharge needs at this time. CM will continue to follow and will assist as needed with dc plans/needs. Rug Designer: Cesia Galvin DCPIA - Discharge Planning Initial Assessment Updated by [email or web address]: Cesia Galvin on 12/13/19 9:17 am * Is the patient Alert and Oriented? Yes * PCP BRANDEN * Pharmacy [facility] [address] * Preadmission Environment Home with Family * ADLs Partial Dependent * Partial ADLs (Assistance needed) Ambulation Medication Management * Equipment Rolling Walker Shower Chair * List name and contact numbers for known caregivers / representatives who currently or will assist patient after discharge: EDUARDO () [phone] * Verbal permission to speak to the caregivers and representatives has been obtained from the patient. N/A * Community resources currently utilized Other Private Duty Care * Please name any agencies selected above. CURRENT WITH [facility] WITH PT "SCREW MACHINE OPERATOR" * Additional services required to return to the preadmission environment? Yes * Can the patient safely return to the preadmission environment? Yes * Has this patient been hospitalized within the prior 30 days at any hospital? Yes External Providers External Provider: [facility] Next Contact Date: Service Request Date: Service Type: Resolution: Reviewer: Comments: Coverage Notice Reviewer: [email or web address] Wolfgang Galvin Notice Issued Date-Time: 12/13/2019 9:00 Notice Type: Patient Choice Letter Notice Delivered To: Patient Relationship to Patient: Asp Net Mvc Developer Name: Delivery Method: - Laura Days: Prior Verbal Notification: Recipient Understood Notice: Yes Recipient Signature: Yes Med Rec Note Co-signed by Attending: Coverage Notice Comment: concetta with [facility] Last DP export: 12/13/19 8:27 a Patient Name: SID WOLF Page 58022 at 1420 All edits/amendments must be made on the electronic document DICTATION DATE: 12/14/191418 AEROPHYSICIST: ANGELES 12/14/19 141 RPT#: [id number] DC DATE: STATUS: ADM IN [facility] [address] [place] [address] END OF REPORT
--- NOTE | 2019-12-14 14:27 | MORECARE ---
CASE MANAGEMENT DISCHARGE SUMMARY PATIENT: SID WOLF UNIT: [id number] ADM DATE: 12/12/19 AGE: 59 : 56 SEX: M ROOM/BED: D.2204 AUTHOR: GLENNDOC PHYSICIAN: REFERRING PHYSICIAN: JACQUELYN OTERO DO DATE OF SERVICE: 12/14/19 Discharge Plan Patient Name: SID WOLF Facility: [facility]:[place] : 1960 Planned Disposition: Home with Home Health Anticipated Discharge Date: Discharge Date: Expected LOS: Initial Reviewer: [email or web address] Initial Review Date: 12/12/2019 Generated: 12/14/19 3:26 pm Comments DCP- Discharge Planning Updated by [email or web address]: More Cowan on 12/14/19 1:[address] Patient Name: SID WOLF Encounter No: [id number] : 1960 Primary Insurance: [employer] Anticipated DC Date: Planned Disposition: Home with Home Health External Planned Provider: : DCP follow-up note: Patient and family in agreement with discharge plan. No changes to plan. I spoke with Vinita with [facility] and clinical and CONCETTA faxed to [phone] per request. Case management will follow and assist as needed. More Cowan DCP- Discharge Planning Updated by [email or web address]: Cesia Galvin on 12/13/19 8:[address] Patient Name: SID WOLF Admission Status: ER Accout number: [id number] Admission Date: 12-12-2019 : 1960 Admission Diagnosis: Attending: JACQUELYN OTERO Current LOS: 1 Anticipated DC Date: Planned Disposition: Home with Home Health Primary Insurance: [employer] Discharge Planning Comments: CM met with patient to complete initial dc planning assessment. CM educated patient on the CM role and verbal consent given by patient to complete assessment. Patient lives at home with his where he is partially independent with his care. He needs help with his medications and he has been falling more. At discharge patient plans to return home and feels this is a safe discharge. CM discussed availability of home health, rehab services, and medical equipment. He is current with Home Health with [place] and with PT. He also stated that his has hired a "Courtroom Deputy" who comes 3 nights during the week so his can get a good night sleep. CONCETTA signed and placed in chart. Patient denied known discharge needs at this time. CM will continue to follow and will assist as needed with dc plans/needs. Provisioning Specialist: Cesia Galvin DCPIA - Discharge Planning Initial Assessment Updated by [email or web address]: Cesia Galvin on 12/13/19 9:17 am * Is the patient Alert and Oriented? Yes * PCP BRANDEN * Pharmacy [facility] [address] * Preadmission Environment Home with Family * ADLs Partial Dependent * Partial ADLs (Assistance needed) Ambulation Medication Management * Equipment Rolling Walker Shower Chair * List name and contact numbers for known caregivers / representatives who currently or will assist patient after discharge: EDUARDO () [phone] * Verbal permission to speak to the caregivers and representatives has been obtained from the patient. N/A * Community resources currently utilized Other Private Duty Care * Please name any agencies selected above. CURRENT WITH [facility] WITH PT "CLINICAL CARE COORDINATOR" * Additional services required to return to the preadmission environment? Yes * Can the patient safely return to the preadmission environment? Yes * Has this patient been hospitalized within the prior 30 days at any hospital? Yes Coverage Notice Reviewer: [id number] - Cesia Galvin Notice Issued Date-Time: 12/13/2019 9:00 Notice Type: Patient Choice Letter Notice Delivered To: Patient Relationship to Patient: Clinical Pharmacist Name: Delivery Method: - Laura Days: Prior Verbal Notification: Recipient Understood Notice: Yes Recipient Signature: Yes Med Rec Note Co-signed by Attending: Coverage Notice Comment: concetta with patricia Efraín DP export: 12/14/19 1:20 p Patient Name: SID WOLF Page 52008 at 1427 All edits/amendments must be made on the electronic document DICTATION DATE: 12/14/191425 JAVA SUPPORT ENGINEER: ANGELES 12/14/191425 RPT#: [id number] DC DATE: STATUS: ADM IN [facility] [address] [place] [address] END OF REPORT
--- NOTE | 2019-12-14 15:30 | NUR ---
DC HOME AT THIS TIME. VOICE UNDERSTANDING OF DC ORDERS. HAS ALL PERSONAL BELONGS UPON DISHCHARGE. STABLE CONDITION UPON DC.
--- NOTE | 2019-12-16 08:29 | MORECARE ---
CASE MANAGEMENT DISCHARGE SUMMARY PATIENT: SID WOLF UNIT: [id number] ADM DATE: 12/12/19 AGE: 59 : 56 SEX: M ROOM/BED: D.2204 AUTHOR: GLENNDOC PHYSICIAN: REFERRING PHYSICIAN: JACQUELYN OTERO DO DATE OF SERVICE: 12/16/19 Discharge Plan Patient Name: SID WOLF Facility: [facility]:[place] : 1960 Planned Disposition: Home with Home Health Anticipated Discharge Date: Discharge Date: 12/14/2019 Expected LOS: Initial Reviewer: [email or web address] Initial Review Date: 12/12/2019 Generated: 12/16/19 9:29 am Comments DCP- Discharge Planning Updated by [email or web address]: More Cowan on 12/14/19 1:[address] Patient Name: SID WOLF Encounter No: [id number] : 1960 Primary Insurance: [employer] Anticipated DC Date: Planned Disposition: Home with Home Health External Planned Provider: : DCP follow-up note: Patient and family in agreement with discharge plan. No changes to plan. I spoke with Vinita with [facility] and clinical and CONCETTA faxed to [phone] per request. Case management will follow and assist as needed. More Cowan DCP- Discharge Planning Updated by [email or web address]: Cesia Galvin on 12/13/19 8:[address] Patient Name: SID WOLF Admission Status: ER Accout number: [id number] Admission Date: 12-12-2019 : 1960 Admission Diagnosis: Attending: JACQUELYN OTERO Current LOS: 1 Anticipated DC Date: Planned Disposition: Home with Home Health Primary Insurance: [employer] Discharge Planning Comments: CM met with patient to complete initial dc planning assessment. CM educated patient on the CM role and verbal consent given by patient to complete assessment. Patient lives at home with his where he is partially independent with his care. He needs help with his medications and he has been falling more. At discharge patient plans to return home and feels this is a safe discharge. CM discussed availability of home health, rehab services, and medical equipment. He is current with Home Health with [place] and with PT. He also stated that his has hired a "Lay Out Machine Operator" who comes 3 nights during the week so his can get a good night sleep. CONCETTA signed and placed in chart. Patient denied known discharge needs at this time. CM will continue to follow and will assist as needed with dc plans/needs. Station Gateman: Cesia Galvin DCPIA - Discharge Planning Initial Assessment Updated by [email or web address]: Cesia Galvin on 12/13/19 9:17 am * Is the patient Alert and Oriented? Yes * PCP BRANDEN * Pharmacy [facility] [address] * Preadmission Environment Home with Family * ADLs Partial Dependent * Partial ADLs (Assistance needed) Ambulation Medication Management * Equipment Rolling Walker Shower Chair * List name and contact numbers for known caregivers / representatives who currently or will assist patient after discharge: EDUARDO () [phone] * Verbal permission to speak to the caregivers and representatives has been obtained from the patient. N/A * Community resources currently utilized Other Private Duty Care * Please name any agencies selected above. CURRENT WITH [facility] WITH PT "FERMENTATION ENGINEER" * Additional services required to return to the preadmission environment? Yes * Can the patient safely return to the preadmission environment? Yes * Has this patient been hospitalized within the prior 30 days at any hospital? Yes Coverage Notice Reviewer: [id number] - Cesia Galvin Notice Issued Date-Time: 12/13/2019 9:00 Notice Type: Patient Choice Letter Notice Delivered To: Patient Relationship to Patient: Glassware Finisher Name: Delivery Method: - Laura Days: Prior Verbal Notification: Recipient Understood Notice: Yes Recipient Signature: Yes Med Rec Note Co-signed by Attending: Coverage Notice Comment: concetta with patricia Last DP export: 12/14/19 1:27 p Patient Name: SID WOLF Page 54926 at 0829 All edits/amendments must be made on the electronic document DICTATION DATE: 12/16/19828 REPAIR TABLE OPERATOR: ANGELES 12/16/19828 RPT#: [id number] DC DATE:12/14/19 STATUS: DIS IN [facility] [address] [place] [address] END OF REPORT
== END 2019-12-14 15:31 | disposition home health service (06) | DRG 605 ==
LOC: D.ER 18:00 → D.MS 19:55
PROVIDERS: Family Medicine; ADMIT Family Medicine; ATTEND Family Medicine
DX: S30.0XXA Contusion of lower back and pelvis, initial encounter (principal); E87.1 Hypo-osmolality and hyponatremia; W18.30XA Fall on same level, unspecified, initial encounter; Z91.81 History of falling; D53.9 Nutritional anemia, unspecified; J45.909 Unspecified asthma, uncomplicated; K70.30 Alcoholic cirrhosis of liver without ascites

== ENCOUNTER 2019-12-16 13:56 | Inpatient (IN) | payer OTHER ==
[~2019-12-16] VITALS: Ht 193 cm; Wt 116.7 kg
[~2019-12-16 13:56] MED LIST changes: +OXYCONTIN10 MG PO
[2019-12-16 14:43] VITALS: BP 112/62; BMI 15.8
[2019-12-16 14:55] LABS: BASOPHILS 0.3 % (0-2); EOSINOPHILS 1.7 % (0-7); HEMATOCRIT 30.9 % (42.0-54.0); HEMOGLOBIN 10.6 g/dL (13.5-17.5); IMMATURE GRANULOCYTES 0.3 % (0-5); LYMPHOCYTES 10.9 % (15-50); MCHC 34.3 g/dL (31.0-37.0); MEAN PLATELET VOLUME 8.7 fL (7.4-10.4); MONOCYTES 12.1 % (2-11); NEUTROPHILS 74.7 % (40-80); PLATELET COUNT 145 10x3/uL (130-400); RBC 3.12 10x6/uL (4.20-6.10); RDW 21.8 % (11.5-14.5); WBC 11.5 10x3/uL (4.8-10.8)
[2019-12-16 15:07] LABS: ANION GAP 13.3 mmol/L (8-16); CALCIUM 8.4 mg/dL (8.5-10.1); CARBON DIOXIDE 24.7 mmol/L (21.0-32.0); CREATININE - SERUM 1.1 mg/dL (0.6-1.3)
[2019-12-16] MEDS ORDERED: PERCOCET 5-3251 TAB PO (15:12)
[2019-12-16 15:13] LABS: ALBUMIN 2.8 g/dL (3.4-5.0); BILIRUBIN - TOTAL 9.79 mg/dL (0.2-1.3); PROTEIN - SERUM 5.9 g/dL (6.4-8.2)
[2019-12-16 21:26] VITALS: BP 112/64
[2019-12-17 01:30] VITALS: BP 118/96
[2019-12-17 04:28] LABS: BASOPHILS 0.2 % (0-2); EOSINOPHILS 1.6 % (0-7); HEMATOCRIT 25.1 % (42.0-54.0); HEMOGLOBIN 8.6 g/dL (13.5-17.5); IMMATURE GRANULOCYTES 0.3 % (0-5); LYMPHOCYTES 10.7 % (15-50); MCH 33.9 pg (26.0-34.0); MCHC 34.3 g/dL (31.0-37.0); MCV 98.8 fL (80.0-100.0); MONOCYTES 12.3 % (2-11); NEUTROPHILS 74.9 % (40-80); PLATELET COUNT 129 10x3/uL (130-400); RBC 2.54 10x6/uL (4.20-6.10); RDW 21.7 % (11.5-14.5); WBC 12.6 10x3/uL (4.8-10.8)
[2019-12-17 04:48] LABS: APTT 46.5 SECONDS (22.8-39.4); INR 2.15 (0.85-1.17); PROTIME 23.7 SECONDS (11.6-15.0)
[2019-12-17 04:57] LABS: ALBUMIN 2.3 g/dL (3.4-5.0); ALKALINE PHOSPHATASE 92 U/L (30-120); ALT (SGPT) 40 U/L (10-68); BILIRUBIN - TOTAL 9.09 mg/dL (0.2-1.3); CALC OSMOLALITY 259 mosm/kg (275-300); CALCIUM 7.7 mg/dL (8.5-10.1); CARBON DIOXIDE 25.4 mmol/L (21.0-32.0); CHLORIDE - SERUM 99 mmol/L (98-107); CREATININE - SERUM 0.9 mg/dL (0.6-1.3); GLUCOSE 107 mg/dL (74-106); MAGNESIUM - SERUM 1.5 mg/dL (1.8-2.4); PHOSPHOROUS 3.3 mg/dL (2.5-4.9); POTASSIUM - SERUM 3.7 mmol/L (3.5-5.1); SODIUM 130 mmol/L (136-145); UREA NITROGEN 10 mg/dL (7-18); eGFR NON AFRICAN AMERICAN > 90 mL/min (90-120)
[2019-12-17 06:27] VITALS: BP 111/66
[2019-12-17 08:00] VITALS: BP 110/72
--- NOTE | 2019-12-17 11:59 | NUR ---
OXYCODONE HYDROCHLORIDE 10 MG FOUND IN CHAIR. NOT AVAILABLE TO PATIENT VIA [facility]. PATIENT HAS NO BELONGINGS OTHER THAN CLOTHES. CL IN REACH. PATIENT BACK IN BED.
[2019-12-17 12:00] VITALS: BP 104/68
--- NOTE | 2019-12-17 12:00 | NUR ---
WHITE OBLONG PILL WITH NUMBERS 377 ON IT IDENTIFIED A TRAMADOL HYDROCHLORIDE 50 MG IN CHAIR WELL A PEACH OBLONG PILL WITH T ON ONE SIDE AND A 12 ON THE OTHER. IDENTIFIED A LEVOFLOXACIN 500 MG. PATIENT LAYING IN BED RESTING.
--- NOTE | 2019-12-17 15:05 | NUR ---
PT REQUESTING PAIN MEDICATION. INFORMED PT IT WAS 2 HOURS TOO EARLY FOR HIS PAIN MEDICATION. LAYING WITH EYES CLOSED AND MOANING. CALL LIGHT IN REACH AND ALL FALL PRECAUTIONS IN PLACE
[2019-12-17 16:00] VITALS: BP 128/60
--- NOTE | 2019-12-17 16:49 | NUR ---
Rehab Note- Acute Inpatient Rehab prescreen order received. The patient is still having an acute work up at this time. The patient has [place] inurance and will require a PreAuth. Will follow at this time and begin PreAuth process. Thank you for this referral! Chelo Scott RN Clinical Liaison, [facility]
[2019-12-17 20:00] VITALS: BP 102/51
[2019-12-18 07:28] LABS: HEMATOCRIT 23.8 % (42.0-54.0); HEMOGLOBIN 8.1 g/dL (13.5-17.5); MCH 34.5 pg (26.0-34.0); MCV 101.3 fL (80.0-100.0); MEAN PLATELET VOLUME 9.5 fL (7.4-10.4); PLATELET COUNT 142 10x3/uL (130-400); RBC 2.35 10x6/uL (4.20-6.10); RDW 21.6 % (11.5-14.5); WBC 20.2 10x3/uL (4.8-10.8)
[2019-12-18 07:39] LABS: ALBUMIN 2.7 g/dL (3.4-5.0); ANION GAP 19.8 mmol/L (8-16); BILIRUBIN - TOTAL 11.75 mg/dL (0.2-1.3); CALCIUM 8.2 mg/dL (8.5-10.1); CARBON DIOXIDE 17.8 mmol/L (21.0-32.0); CREATININE - SERUM 1.2 mg/dL (0.6-1.3); MAGNESIUM - SERUM 1.9 mg/dL (1.8-2.4); PHOSPHOROUS 2.9 mg/dL (2.5-4.9); POTASSIUM - SERUM 3.6 mmol/L (3.5-5.1); PROTEIN - SERUM 5.4 g/dL (6.4-8.2)
[2019-12-18 08:34] VITALS: BP 147/73
--- NOTE | 2019-12-18 10:16 | NUR ---
RESTING IN BED, NO DISTRESS NOTED, UPDATED, NO IV AT PRESENT, CONFUSED, ROLLING ABOUT IN BED, C/O PAIN, MEDICATED THIS AM, CONT TO MONITOR
[2019-12-18 10:52] LABS: ANISOCYTOSIS OCC; CRENATED CELLS 1+; LYMPHOCYTES 12 % (15-50); MONOCYTES 8 % (2-11); NEUTROPHILS 80 % (40-80); PLATELET ESTIMATE NORMAL
[2019-12-18 12:23] LABS: PROTIME 27.8 SECONDS (11.6-15.0)
--- NOTE | 2019-12-18 12:39 | MORECARE ---
CASE MANAGEMENT DISCHARGE SUMMARY PATIENT: SID WOLF UNIT: [id number] ADM DATE: 12/16/19 AGE: 59 : 56 SEX: M ROOM/BED: D.2203 AUTHOR: MERRILL ELIZABETH PHYSICIAN: REFERRING PHYSICIAN: TOMMY WOODS MD DATE OF SERVICE: 12/18/19 Discharge Plan Patient Name: SID WOLF [facility] [facility] 1960 Planned Disposition: Anticipated Discharge Date: Discharge Date: Expected LOS: Initial Reviewer: [id number] Initial Review Date: 12/18/2019 Generated: 12/18/19 1:39 pm DCPIA - Discharge Planning Initial Assessment Updated by [email or web address]: Beatriz Westfall on 12/18/19 12:36 pm * Is the patient Alert and Oriented? No * PCP BRANDEN * [facility] * Preadmission Environment Home with Family * ADLs Partial Dependent * Other Equipment SHOWER CHAIR, WALKER * List name and contact numbers for known caregivers / representatives who currently or will assist patient after discharge: EDUARDO, , * Community resources currently utilized Home Health * Please name any agencies selected above. [facility] * Additional services required to return to the preadmission environment? Yes * Can the patient safely return to the preadmission environment? No * Has this patient been hospitalized within the prior 30 days at any hospital? Yes Patient Name: SID WOLF Page 97171 at 1239 All edits/amendments must be made on the electronic document DICTATION DATE: 12/18/19 1239 EMERGENCY DEPARTMENT MANAGER: DM 12/18/19 1239 RPT#: [id number] DC DATE: STATUS: ADM IN [facility] [address] [place] [address] END OF REPORT
[2019-12-18 12:42] LABS: INR 2.64 (0.85-1.17)
--- NOTE | 2019-12-18 12:46 | MORECARE ---
CASE MANAGEMENT DISCHARGE SUMMARY PATIENT: SID WOLF UNIT: [id number] ADM DATE: 12/16/19 AGE: 59 : 56 SEX: M ROOM/BED: D.2203 AUTHOR: MERRILL ELIZABETH PHYSICIAN: REFERRING PHYSICIAN: TOMMY WOODS MD DATE OF SERVICE: 12/18/19 Discharge Plan Patient Name: SID WOLF [facility] [facility] 1960 Planned Disposition: Anticipated Discharge Date: Discharge Date: Expected LOS: Initial Reviewer: [email or web address] Initial Review Date: 12/18/2019 Generated: 12/18/19 1:45 pm Comments DCP- Discharge Planning Updated by [email or web address]: Beatriz Westfall on 12/18/19 11:[address] Patient Name: SID WOLF Admission Status: Urgent Accout number: [id number] Admission Date: 12-16-2019 : 1960 Admission Diagnosis:WEAKNESS Attending: TOMMY WOODS Current LOS: 2 Anticipated DC Date: Planned Disposition: Primary Insurance: [employer] Discharge Planning Comments: PATIENT IS CONFUSED. CM MET WITH HIS EDUARDO WOLF TODAY ABOUT DC PLANNING/NEEDS. SHE STATES HE HAS HAD MANY FALLS AND SHE IS UNABLE TO CARE FOR HIM AT HOME ANYMORE. SHE STATES SHE WOULD LIKE HIM TO GO TO SNF AND THEN HE IS SCHEDULED TO SEE A LIVER DOCTOR NEXT MONTH. I GAVE HER A LIST OF NURSING AND REHAB FACILITIES IN THE ARE WHERE SHE LIVES. I ALSO GAVE HER BROCHURES FOR DIFFERENT NURSING AND REHAB FACILLITIES. I GAVE HER MY PHONE NUMBER AND SHE WILL LET ME KNOW WHAT SNF SHE WOULD LIKE TO USE. CM TO FOLLOW AND ASSIST NEEDED. Pitch Filler: Beatriz Westfall DCPIA - Discharge Planning Initial Assessment Updated by [email or web address]: Beatriz Westfall on 12/18/19 12:36 pm * Is the patient Alert and Oriented? No * PCP BRANDEN * Pharmacy [facility] [address] * Preadmission Environment Home with Family * ADLs Partial Dependent * Other Equipment SHOWER CHAIR, WALKER * List name and contact numbers for known caregivers / representatives who currently or will assist patient after discharge: EDUARDO, , * Community resources currently utilized Home Health * Please name any agencies selected above. [facility] * Additional services required to return to the preadmission environment? Yes * Can the patient safely return to the preadmission environment? No * Has this patient been hospitalized within the prior 30 days at any hospital? Yes Last DP export: 12/18/19 11:39 a Patient Name: SID WOLF Page 70274 at 1246 All edits/amendments must be made on the electronic document DICTATION DATE: 12/18/191244 BOILERMAKING SUPERVISOR: ANGELES 12/18/191244 RPT#: [id number] DC DATE: STATUS: ADM IN [facility] [address] [place] [address] END OF REPORT
[2019-12-18 12:59] VITALS: BP 127/68
[2019-12-18 13:00] LABS: UDS - AMPHET NEGATIVE QUAL (NEGATIVE); UDS - BARB NEGATIVE QUAL (NEGATIVE); UDS - BENZO POSITIVE QUAL (NEGATIVE); UDS - COCAINE NEGATIVE QUAL (NEGATIVE); UDS - OPIATE POSITIVE QUAL (NEGATIVE); UDS - PCP NEGATIVE QUAL (NEGATIVE); UDS - THC POSITIVE QUAL (NEGATIVE)
[2019-12-18 13:24] LABS: BILIRUBIN NEGATIVE (NEGATIVE); GLUCOSE NEGATIVE (NEGATIVE); KETONE MODERATE mg/dL (NEGATIVE); NITRITE NEGATIVE (NEGATIVE); SPECIFIC GRAVITY 1.025 (1.005-1.020); UROBILINOGEN 8 mg/dL (NORMAL)
[2019-12-18 13:25] LABS: BACTERIA MODERATE /hpf (NEGATIVE); EPITHELIAL CELLS 0-5 /hpf (0-5); HYALINE CAST OCC /lpf (NONE SEEN); RED CELLS - URINE RARE /hpf (0-5)
--- NOTE | 2019-12-18 14:52 | NUR ---
OT NOTE: PT REQUIRED EXT ASSIST THIS AFTERNOON. HE HAS BEEN MOANING IN BED MOST OF DAY. PT WANTING TO GO TO THE BATHROOM, BUT UNSAFE FOR NURSING TO PERFORM TRANSFER AT THIS TIME. ALLOWED PT TO ATTEMPT SUPINE TO SIT , HE BEGAN TO SCREAM IN PAIN WHEN R LEG WAS TOUCHED. PT REQUIRED APPROX 5 MIN TO GET TO EOB WITH MIN ASSIST. ABLE TO PERFORM SIT TO STAND WITH MOD ASSIST AND USE OF WALKER. REUQIRED MOD ASSIST X 2 FOR AMB FROM BED TO TOILET, PT WAS UNABLE TO BEAR WT THROUGH R LE DUE TO PAIN. PT IS UNSAFE WITH MOBILTY, HIS ARMS ARE WEAK AND HE IS VERY UNSTEADY ON HIS FEET. MAX ASSIST X 2 FOR TRANSFER TO TOILET; MAX ASSIST X 2 FOR SIT TO STAND FROM TOILET; TOTAL ASSIST WITH TOILET HYGIENE AND CLOTHING MGMT; PTS IV STEADILY BLEEDING EVEN THOUGH NURSING HAS WORKED ON IT THROUGHOUT THE DAY. CHANGED PTS LINENS AGAIN DUE TO BLOOD FROM IV. AMB BACK TO BED WITH MOD/MAX ASSIST X 2; SIT TO SUPINE WITH MAX ASSIST X 2; PTS R HIP MAY NEED SECOND XRAY HE IS IN SEVERE PAIN WITH ANY MOVEMENT, AND STATED PREVIOUSLY, HE IS UNABLE TO WT BEAR ON R LE. EXTENSIVE TIME REQUIRE FOR TREATMENT WITH ASSIST X 3. BOBO GOLDBERG, OTR/L [phone]
--- NOTE | 2019-12-18 16:07 | NUR ---
OT NOTE: PT COMPLETED ADL MOB WITH MAX A X2. PT COMPLETED BED MOB WITH MAX A. PT COMPLETED TOILETING WITH MAX A FOR HYGIENE AND GARMENT MANAGEMENT. NURSING NOTIFIED THAT PT HAS EDEMA OF RLE AND IS BLEEDING FROM RUE. PT C/O OF PAIN IN RLE. PT EXHIBITED EXTREME DIFFICULTY WITH RLE AROM. NURSING CAME INTO ROOM TWICE DURING SESSION DUE TO BLEEDING . [phone] THANK YOU,LORI BENAVIDEZ
--- NOTE | 2019-12-18 16:37 | MORECARE ---
CASE MANAGEMENT DISCHARGE SUMMARY PATIENT: SID WOLF UNIT: [id number] ADM DATE: 12/16/19 AGE: 59 : 56 SEX: M ROOM/BED: D.2203 AUTHOR: GLENNDOC PHYSICIAN: REFERRING PHYSICIAN: TOMMY WOODS MD DATE OF SERVICE: 12/18/19 Discharge Plan Patient Name: SID WOLF Facility: [facility]:[place] : 1960 Planned Disposition: Anticipated Discharge Date: Discharge Date: Expected LOS: Initial Reviewer: [email or web address] Initial Review Date: 12/18/2019 Generated: 12/18/19 5:37 pm Comments DCP- Discharge Planning Updated by [email or web address]: Beatriz Westfall on 12/18/19 3:[address] Patient Name: SID WOLF Admission Status: Urgent Accout number: [id number] Admission Date: 12-16-2019 : 1960 Admission Diagnosis:WEAKNESS Attending: TOMMY WOODS Current LOS: 2 Anticipated DC Date: Planned Disposition: Primary Insurance: TRICAREER Discharge Planning Comments: PATIENT'S CALLED AND WOULD LIKE TO USE [facility] FOR [facility] CARE. HE HAS BEEN CONFUSED TODAY AND JUST NOW RESTING. CM WILL TALK WITH PATIENT ABOUT SNF TOMORROW. Dry Chain Offbearer: Beatriz Westfall DCP- Discharge Planning Updated by [id number]: Beatriz Westfall on 12/18/19 11:[address] Patient Name: SID WOLF Admission Status: Urgent Accout number: [id number] Admission Date: 12-16-2019 : 1960 Admission Diagnosis:WEAKNESS Attending: TOMMY WOODS Current LOS: 2 Anticipated DC Date: Planned Disposition: Primary Insurance: TRICAREER Discharge Planning Comments: PATIENT IS CONFUSED. CM MET WITH HIS EDUARDO WOLF TODAY ABOUT DC PLANNING/NEEDS. SHE STATES HE HAS HAD MANY FALLS AND SHE IS UNABLE TO CARE FOR HIM AT HOME ANYMORE. SHE STATES SHE WOULD LIKE HIM TO GO TO SNF AND THEN HE IS SCHEDULED TO SEE A LIVER DOCTOR NEXT MONTH. I GAVE HER A LIST OF NURSING AND REHAB FACILITIES IN THE ARE WHERE SHE LIVES. I ALSO GAVE HER BROCHURES FOR DIFFERENT NURSING AND REHAB FACILLITIES. I GAVE HER MY PHONE NUMBER AND SHE WILL LET ME KNOW WHAT SNF SHE WOULD LIKE TO USE. CM TO FOLLOW AND ASSIST NEEDED. Dry Chain Offbearer: Beatriz Westfall DCPIA - Discharge Planning Initial Assessment Updated by [id number]: Beatriz Westfall on 12/18/19 12:36 pm * Is the patient Alert and Oriented? No * PCP BRANDEN * Pharmacy [facility] [address] * Preadmission Environment Home with Family * ADLs Partial Dependent * Other Equipment SHOWER CHAIR, WALKER * List name and contact numbers for known caregivers / representatives who currently or will assist patient after discharge: EDUARDO, , * Community resources currently utilized Home Health * Please name any agencies selected above. [facility] * Additional services required to return to the preadmission environment? Yes * Can the patient safely return to the preadmission environment? No * Has this patient been hospitalized within the prior 30 days at any hospital? Yes Last DP export: 12/18/19 11:46 a Patient Name: SID WOLF Page 84957 at 1637 All edits/amendments must be made on the electronic document DICTATION DATE: 12/18/19 163 CIGARETTE FILTER INSPECTOR: ANGELES 12/18/19 1637 RPT#: [id number] LA DATE: STATUS: ADM IN [facility] [address] [place] [address] END OF REPORT
--- NOTE | 2019-12-18 16:45 | MORECARE ---
CASE MANAGEMENT DISCHARGE SUMMARY PATIENT: SID WOLF UNIT: [id number] ADM DATE: 12/16/19 AGE: 59 : 56 SEX: M ROOM/BED: D.2203 AUTHOR: MERRILL ELIZABETH PHYSICIAN: REFERRING PHYSICIAN: TOMMY WOODS MD DATE OF SERVICE: 12/18/19 Discharge Plan Patient Name: SID WOLF Facility: [facility]:[place] : 1960 Planned Disposition: Anticipated Discharge Date: Discharge Date: Expected LOS: Initial Reviewer: [email or web address] Initial Review Date: 12/18/2019 Generated: 12/18/19 5:44 pm Comments DCP- Discharge Planning Updated by [email or web address]: Beatriz Westfall on 12/18/19 3:[address] Patient Name: SID WOLF Admission Status: Urgent Accout number: [id number] Admission Date: 12-16-2019 : 1960 Admission Diagnosis:WEAKNESS Attending: TOMMY WOODS Current LOS: 2 Anticipated DC Date: Planned Disposition: Primary Insurance: TRICAREER Discharge Planning Comments: PATIENT AWAKE, ALERT AND ORIENTED TO PERSON AND PLACE. I DISCUSSED WITH HIM REHAB WHEN MEDICALLY STABLE. HE AGREES TO [facility]. MIL SIGNED AND PLACED ON CHART. Utility Supervisor Boat And Plant: Beatriz Westfall DCP- Discharge Planning Updated by [email or web address]: Beatriz Westfall on 12/18/19 3:[address] Patient Name: SID WOLF Admission Status: Urgent Accout number: [id number] Admission Date: 12-16-2019 : 1960 Admission Diagnosis:WEAKNESS Attending: TOMMY WOODS Current LOS: 2 Anticipated DC Date: Planned Disposition: Primary Insurance: TRICAREER Discharge Planning Comments: PATIENT'S CALLED AND WOULD LIKE TO USE [facility] FOR DETENTION CARE. HE HAS BEEN CONFUSED TODAY AND JUST NOW RESTING. CM WILL TALK WITH PATIENT ABOUT SNF TOMORROW. Utility Supervisor Boat And Plant: Beatriz Westfall DCP- Discharge Planning Updated by [id number]: Beatriz Westfall on 12/18/19 11:[address] Patient Name: SID WOLF Admission Status: Urgent Accout number: [id number] Admission Date: 12-16-2019 : 1960 Admission Diagnosis:WEAKNESS Attending: TOMMY WOODS Current LOS: 2 Anticipated DC Date: Planned Disposition: Primary Insurance: TRICAREER Discharge Planning Comments: PATIENT IS CONFUSED. CM MET WITH HIS EDUARDO WOLF TODAY ABOUT DC PLANNING/NEEDS. SHE STATES HE HAS HAD MANY FALLS AND SHE IS UNABLE TO CARE FOR HIM AT HOME ANYMORE. SHE STATES SHE WOULD LIKE HIM TO GO TO SNF AND THEN HE IS SCHEDULED TO SEE A LIVER DOCTOR NEXT MONTH. I GAVE HER A LIST OF NURSING AND REHAB FACILITIES IN THE ARE WHERE SHE LIVES. I ALSO GAVE HER BROCHURES FOR DIFFERENT NURSING AND REHAB FACILLITIES. I GAVE HER MY PHONE NUMBER AND SHE WILL LET ME KNOW WHAT SNF SHE WOULD LIKE TO USE. CM TO FOLLOW AND ASSIST NEEDED. Utility Supervisor Boat And Plant: Beatriz Westfall DCPIA - Discharge Planning Initial Assessment Updated by [email or web address]: Beatriz Westfall on 12/18/19 12:36 pm * Is the patient Alert and Oriented? No * PCP BRANDEN * Pharmacy [facility] * Preadmission Environment Home with Family * ADLs Partial Dependent * Other Equipment SHOWER CHAIR, WALKER * List name and contact numbers for known caregivers / representatives who currently or will assist patient after discharge: EDUARDO, , * Community resources currently utilized Home Health * Please name any agencies selected above. [facility] * Additional services required to return to the preadmission environment? Yes * Can the patient safely return to the preadmission environment? No * Has this patient been hospitalized within the prior 30 days at any hospital? Yes External Providers External Provider: [facility] Next Contact Date: Service Request Date: Service Type: Resolution: Reviewer: Comments: Coverage Notice Reviewer: [id number] - Beatriz Westfall Notice Issued Date-Time: 12/18/2019 16:45 Notice Type: Patient Choice Letter Notice Delivered To: Patient Relationship to Patient: Dedicated Owner Operator Name: Delivery Method: - Laura Days: Prior Verbal Notification: Recipient Understood Notice: Recipient Signature: Med Rec Note Co-signed by Attending: Coverage Notice Comment: Last DP export: 12/18/19 3:37 p Patient Name: SID WOLF Page 70466 at 1645 All edits/amendments must be made on the electronic document DICTATION DATE: 12/18/191644 ACETYLENE TORCH OPERATOR: ANGELES 12/18/191644 RPT#: [id number] DC DATE: STATUS: ADM IN [facility] [address] [facility] [place] [address] END OF REPORT
--- NOTE | 2019-12-18 16:53 | MORECARE ---
CASE MANAGEMENT DISCHARGE SUMMARY PATIENT: SID WOLF UNIT: [id number] ADM DATE: 12/16/19 AGE: 59 : 56 SEX: M ROOM/BED: D.2203 AUTHOR: MERRILL ELIZABETH PHYSICIAN: REFERRING PHYSICIAN: TOMMY WOODS MD DATE OF SERVICE: 12/18/19 Discharge Plan Patient Name: ISD WOLF Facility: [facility]:[place] : 1960 Planned Disposition: Anticipated Discharge Date: Discharge Date: Expected LOS: Initial Reviewer: [email or web address] Initial Review Date: 12/18/2019 Generated: 12/18/19 5:52 pm Comments DCP- Discharge Planning Updated by [email or web address]: Beatriz Westfall on 12/18/19 3:[address] Patient Name: SID WOLF Admission Status: Urgent Accout number: [id number] Admission Date: 12-16-2019 : 1960 Admission Diagnosis:WEAKNESS Attending: TOMMY WOODS Current LOS: 2 Anticipated DC Date: Planned Disposition: Primary Insurance: TRICAREER Discharge Planning Comments: PATIENT AWAKE, ALERT AND ORIENTED TO PERSON AND PLACE. I DISCUSSED WITH HIM REHAB WHEN MEDICALLY STABLE. HE AGREES TO [facility]. MIL SIGNED AND PLACED ON CHART. Director Of Photography: Beatriz Westfall Appended by Beatriz Westfall on 12/18/2019 16:51 CDT: REFERRAL FAXED TO DON[facility] WITH [facility]. DCP- Discharge Planning Updated by [email or web address]: Beatriz Westfall on 12/18/19 3:[address] Patient Name: SID WOLF Admission Status: Urgent Accout number: [id number] Admission Date: 12-16-2019 : 1960 Admission Diagnosis:WEAKNESS Attending: TOMMY WOODS Current LOS: 2 Anticipated DC Date: Planned Disposition: Primary Insurance: TRICAREER Discharge Planning Comments: PATIENT'S CALLED AND WOULD LIKE TO USE [facility] FOR PENITENTIARY CARE. HE HAS BEEN CONFUSED TODAY AND JUST NOW RESTING. CM WILL TALK WITH PATIENT ABOUT SNF TOMORROW. Director Of Photography: Beatriz Westfall DCP- Discharge Planning Updated by [email or web address]: Beatriz Westfall on 12/18/19 11:[address] Patient Name: SID WOLF Admission Status: Urgent Accout number: [id number] Admission Date: 12-16-2019 : 1960 Admission Diagnosis:WEAKNESS Attending: TOMMY WOODS Current LOS: 2 Anticipated DC Date: Planned Disposition: Primary Insurance: TRICAREER Discharge Planning Comments: PATIENT IS CONFUSED. CM MET WITH HIS EDUARDO WOLF TODAY ABOUT DC PLANNING/NEEDS. SHE STATES HE HAS HAD MANY FALLS AND SHE IS UNABLE TO CARE FOR HIM AT HOME ANYMORE. SHE STATES SHE WOULD LIKE HIM TO GO TO SNF AND THEN HE IS SCHEDULED TO SEE A LIVER DOCTOR NEXT MONTH. I GAVE HER A LIST OF NURSING AND REHAB FACILITIES IN THE ARE WHERE SHE LIVES. I ALSO GAVE HER BROCHURES FOR DIFFERENT NURSING AND REHAB FACILLITIES. I GAVE HER MY PHONE NUMBER AND SHE WILL LET ME KNOW WHAT SNF SHE WOULD LIKE TO USE. CM TO FOLLOW AND ASSIST NEEDED. Director Of Photography: Beatriz Westfall DCPIA - Discharge Planning Initial Assessment Updated by [id number]: Beatriz Westfall on 12/18/19 12:36 pm * Is the patient Alert and Oriented? No * PCP BRYCEO * Pharmacy [facility] * Preadmission Environment Home with Family * ADLs Partial Dependent * Other Equipment SHOWER CHAIR, WALKER * List name and contact numbers for known caregivers / representatives who currently or will assist patient after discharge: SAI CLARK, * Community resources currently utilized Home Health * Please name any agencies selected above. [facility] * Additional services required to return to the preadmission environment? Yes * Can the patient safely return to the preadmission environment? No * Has this patient been hospitalized within the prior 30 days at any hospital? Yes External Providers External Provider: [facility] Next Contact Date: Service Request Date: Service Type: Resolution: Reviewer: Comments: Coverage Notice Reviewer: [id number] - Beatriz Westfall Notice Issued Date-Time: 12/18/2019 16:45 Notice Type: Patient Choice Letter Notice Delivered To: Patient Relationship to Patient: Sugar Chipper Machine Operator Name: Delivery Method: HAND - Hand Delivered Laura Days: Prior Verbal Notification: Recipient Understood Notice: Yes Recipient Signature: Yes Med Rec Note Co-signed by Attending: Coverage Notice Comment: [facility] FOR SNF. Last DP export: 12/18/19 3:45 p Patient Name: SID WOLF Page 22476 at 1653 All edits/amendments must be made on the electronic document DICTATION DATE: 12/18/191651 SOLE TIER: ANGELES 12/18/191651 RPT#: [id number] DC DATE: STATUS: ADM IN [facility] [address] [place] [address] END OF REPORT
[2019-12-18 16:55] VITALS: BP 139/58
[2019-12-18 20:00] VITALS: BP 113/65
--- NOTE | 2019-12-18 23:45 | NUR ---
PT LYING IN BED AWAKE AND ALERT. PT OBSERVED TYING TO GET OUT OF BED. BED ALARM AND OTHER FALL PRECAUTIONS ARE IN PLACE. PT SEEMS TO BE CONFUSED. PT ALERT TO PERSON, BUT NOT TO PALCE, JOSE,E OR SITUATION. PT HAS HAD BATH AND BED CHANGE. PT PULLED PIV OUT OF LEFT WRIST WITH END STILL INTACT. WILL TRY TO RESITE IV. SKIN TEARS NOTED TO LEFT FOREARM AND LEFT HAND. 4X4S AND COBAN APPLIED. PT USES URINAL. PT REFUSED LACTULOSE. PT ENCOURAGESD TO CALL FOR HELP WHEN NEEDED. PT C/O PAIN TO LEFT HIP. PRN PAIN MEDICATION GIVEN. CALL LIGHT AND OTHER PERSONAL ITEMS ARE WITH IN REACH. TED BED ALARM ON AND ACTIVE. WILL CONTINUE TO MONITOR
[2019-12-19] VITALS (21 sets, daily range): BP systolic 86–142; BP diastolic 26–98
--- NOTE | 2019-12-19 01:45 | NUR ---
PT OBSERVED TRYING TO GET OUT OF BED. BED ALARM IS SOUNDING WHEN TRYING TO HELP PT BACK TO BED PT BEGIN PUSHING ME. PT ADIVSED TO STOP PUSHING AND TO GET BACK TO BED. PRN AMBROSIO GIVEN FOR AGGRESSION. CALL LIGHT WITH IN REACH BED IS INLOWEST POSITION. URINAL AND OTHER PERSONAL ITEMS WITH IN REACH. WILL DO FREQUENT ROUNDING. BED ALARM ON AND ACTIVE. WILL CONTINUE TO MONITOR
--- NOTE | 2019-12-19 02:55 | NUR ---
I have reviewed this patient and I concur with the Shift Assessment completed by the Licensed Practical Nurse today this shift.
[2019-12-19 06:05] LABS: ALBUMIN 2.4 g/dL (3.4-5.0); BILIRUBIN - TOTAL 14.36 mg/dL (0.2-1.3); CALCIUM 7.9 mg/dL (8.5-10.1); CARBON DIOXIDE 15.1 mmol/L (21.0-32.0); CREATININE - SERUM 1.2 mg/dL (0.6-1.3); MAGNESIUM - SERUM 2.1 mg/dL (1.8-2.4); PROTEIN - SERUM 4.7 g/dL (6.4-8.2)
[2019-12-19 06:09] LABS: ANION GAP 22.6 mmol/L (8-16); POTASSIUM - SERUM 4.7 mmol/L (3.5-5.1)
[2019-12-19 06:28] LABS: APTT 97.6 SECONDS (22.8-39.4)
--- NOTE | 2019-12-19 06:42 | NUR ---
NOLAN SANDOVAL UNIT ASSEMBLER, NOTIFIED ABOUT THE SKIN TEARS AND THE CONTINUOS BLEEDING. 4X4S ABD PAD APPLIED FOR PRESSURE DRESSING. PT IS JAUNDICE. UNIT ASSEMBLER NOTIFIED THAT PT PULLED IV OUT AND HAS NO IV ACCCESS. UNIT ASSEMBLER ORDER A NOW ORDER OF AMBROSIO. PT NOW RESTING WITH EYES CLOSED. EASILY AWAKEN WITH VOICE STIMULATION. CALL LIGHT WITH IN REACH WILL CONTINUE TO MONITOR
[2019-12-19 06:54] LABS: BASOPHILS 0.2 % (0-2); EOSINOPHILS 0.9 % (0-7); IMMATURE GRANULOCYTES 0.6 % (0-5); LYMPHOCYTES 14.6 % (15-50); MCH 35.2 pg (26.0-34.0); MCHC 32.9 g/dL (31.0-37.0); MEAN PLATELET VOLUME 11.9 fL (7.4-10.4); MONOCYTES 11.1 % (2-11); NEUTROPHILS 72.6 % (40-80); RDW 22.4 % (11.5-14.5); WBC 18.7 10x3/uL (4.8-10.8)
[2019-12-19 06:56] LABS: HEMATOCRIT 17.3 % (42.0-54.0); HEMOGLOBIN 5.7 g/dL (13.5-17.5); MCV 106.8 fL (80.0-100.0); PLATELET COUNT 60 10x3/uL (130-400); RBC 1.62 10x6/uL (4.20-6.10)
[2019-12-19 07:19] LABS: PROTIME > 120.0 SECONDS (11.6-15.0)
--- NOTE | 2019-12-19 07:49 | NUR ---
HE IS CONFUSED, NO IV. HIS IS JAUNDICED. HIS RIGHT ARM HAS A DRESSING OVER THE WRIST THAT HAS DRIED BLOOD ON IT. HIS RIGHT SHOULDER AND HIP HAS A BIG BRUISE ON IT. HE HAS BRUISING ALL OVER HIS BODY. THIS ARMS ARE SWOLLEN. THE CALL LIGHT IS WITHIN REACH. THE BED ALARM IS ON.
--- NOTE | 2019-12-19 07:52 | NUR ---
ALINA SERVIN, NOTIFIED OF PT CRITICAL LABS
[2019-12-19 08:18] LABS: PLATELET ESTIMATE DECREASED
[2019-12-19 08:20] LABS: ANISOCYTOSIS OCC; CRENATED CELLS 2+; ROULEAUX OCC
[2019-12-19 08:21] LABS: SMUDGE CELLS OCC
--- NOTE | 2019-12-19 08:22 | NUR ---
REPORT CALLED TO SOREN LUDWIG IN ICU, GOING FOR THE CT NOW AND THEN TO ROOM 2308.
--- NOTE | 2019-12-19 08:30 | NUR ---
PT RECEIVED FROM FLOOR. VS UNSTABLE. HR 128 BP 88/56 PT LETHARGIC RESPONDS TO PAINFUL STIMULI. PT WITH NO PIV ACCESS, MULTIPLE ATTEMPTS MADE, SURGERY CONSULT CALLED FOR CVL PLACEMENT DR GUZMAN AT BEDSIDE PLACED CVL UPON [address] WOODS CALLED GIVEN UPDATE REGAURDING PT STATUS. NEW ORDERS RECEIVED. 2 U PRBC ADM 2 U FFP ADM.
--- NOTE | 2019-12-19 09:48 | NUR ---
URINARY OCAMPO CATH 18FR 15CC BALLOON PLACED TODAY PER ORDERS AT APPROX 930AM. REQUIRED FOR INTENSIVE CARE UNIT AND I&O REQUIREMENTS. PT TOLERATED WITHOUT S/S OF COMPLICATIONS. DARK TAMARA URINE IN COLLECTION BAG.
--- NOTE | 2019-12-19 11:15 | NUR ---
REASSESSMENT COMPLETE PER FLOW SHEET. VSS PT RESTING COMFORTABLY WILL CONTINUE TO MONITOR
--- NOTE | 2019-12-19 11:26 | NUR ---
DR GUZMAN AT BEDSIDE GIVEN UPDATE.
--- NOTE | 2019-12-19 12:08 | NUR ---
OT NOTE: OT AND SANDOVAL ENTERED PTS ROOM EARLY THIS AM. PT WAS ATTEMPTING TO CLIMB OUT OF BED..HE WAS MORE CONFUSED THAN NORMAL AND HAD HIS LEFT FOOT STUCK OUTSIDE OF THE BED RAILS. PT HAD NEW SKIN TEAR ON R LATERAL SIDE AND ALSO BLEEDING FROM IV.. ATTEMPTED TO HAVE PT GET BACK IN BED BUT WAS UNABLE TO FOLLOW COMMANDS. REQUIRED MAX ASSIST X 2 TO REPOSITION AND ROLL FROM SIDE TO SIDE TO REPLACE PAD. PROVIDED PT WITH WASH CLOTH BUT HE WAS UNABLE TO WASH FACE DUE TO CONFUSION AND LETHARGY. OT AND TRIBAL DELEGATE CLEANED PT AND PUT ON GOWN. HOWEVER, MINUITES LATER HE HAD THE GOWN REMOVED AGAIN. NURSING NOTIFIED THERAPIST THAT PT WAS TO BE TRANSFERRED TO ICU.. WILL RE ASSESS IF NECESSARY. BOBO GOLDBERG, OTR/L [phone]
--- NOTE | 2019-12-19 13:31 | NUR ---
PT AT BEDSIDE, UPSET PT SHOWING S/S OF PAIN, ATTEMPT TO EXPLAIN REASONING WHY PT COULD NOT HAVE PAIN MEDICATIONS AT THIS TIME. STILL REQUESTED MEDICATIONS. DR WOODS GIVEN UPDATE REGAURDING PT STATUS, S/S AND CONCERNS, STATED NO PT CANNOT RECIEVE PAIN MEDICATION AT THIS TIME. GIVEN UDPATE. ATTEMPT TO RESPOSITION PT FOR COMFORT WITH NO RELIEF. STILL CONCERNED AT BEDSIDE.
--- NOTE | 2019-12-19 13:58 | OP ---
PATIENT NAME: SID WOLF MEDICAL RECORD: [id number] :[birth year] LOCATION:D.ICU D.2308 ADMISSION DATE:12/16/19 SURGEON: DAVID AVITIA MD DATE OF OPERATION: 12/19/2019 PREOPERATIVE DIAGNOSES: 1. Alcohol-related liver cirrhosis. 2. Acute blood loss anemia. 3. Hemorrhagic shock. 4. Metabolic acidosis. 5. Disseminated intravascular coagulation. POSTOPERATIVE DIAGNOSES: 1. Alcohol-related liver cirrhosis. 2. Acute blood loss anemia. 3. Hemorrhagic shock. 4. Metabolic acidosis. 5. Disseminated intravascular coagulation. PROCEDURE: Right subclavian vein triple-lumen central venous line placement. SURGEON: David Avitia MD REPORT OF PROCEDURE: The patient's right chest was prepped and draped in sterile fashion. A total of 5 cc of 1% lidocaine with epinephrine was infused into the surrounding tissues. A needle was then used to cannulate the right subclavian vein and a guidewire was advanced with ease. Over this wire, a dilator was placed followed by the triple lumen catheter. The catheter aspirated nonpulsatile dark blood and flushed easily in all 3 ports. This was sutured into place with 3-0 nylon and dressed appropriately. COMPLICATIONS: None. CONDITION: Stable. ANESTHESIA: Local. BLOOD LOSS: Minimal. Procedure done in the ICU at the bedside. TRANSINT:[id number] Voice Confirmation ID: [id number] DOCUMENT ID: [id number] DAVID AVITIA MD at 1358 CC: [id number] DICTATION DATE: 12/19/19 1128 DELINQUENT TAX COLLECTOR ASSISTANT: 12/19/19 1256 ADM IN [facility] [id number] [place] [address]
[2019-12-19 14:00] LABS: INR 5.01 (0.85-1.17); PROTIME 45.4 SECONDS (11.6-15.0)
[2019-12-19 14:34] LABS: HEMATOCRIT 16.3 % (42.0-54.0); HEMOGLOBIN 5.2 g/dL (13.5-17.5)
--- NOTE | 2019-12-19 15:11 | NUR ---
OT NOTE: PT REQUIRED MAX A WITH BED MOB TASKS WHILE COMPLETING HYGIENE TASKS. PT IS COFUSED. PT COMPLETED UB/LB HYGIENE TASKS WITH TOTAL A. [phone] THANK YOU, LORI BENAVIDEZ
--- NOTE | 2019-12-19 15:15 | NUR ---
REASSESSMENT COMPLETE PER FLOW SHEET. VSS. PT RESTING COMFORTABLY WILL CONTINUE TO MONTIOR
--- NOTE | 2019-12-19 17:15 | NUR ---
FAMILY AT BEDSIDE. GIVEN UPDATE. DR WOODS GIVEN UDPATE REGAURDING PT STATUS. SPOKE WITH FAMILY AT GREAT LENGTH. PT DNR AT THIS TIME.
--- NOTE | 2019-12-19 18:10 | NUR ---
PT TO RADIOLOGY FOR GI SCAN AT THIS TIME. VSS.
--- NOTE | 2019-12-19 19:00 | NUR ---
PT ARRIVED BACK TO UNIT FROM RADIOLOGY. REPORT RECEIVED. PT UNRESPONSIVE, MOVES EXTREMETIES SPONTANEOUSLY. ASSESSMENT COMPLETED, SEE FLOWSHEET. RT SUBCLAVIAN CVL INFUSING, SEE IV FLOWSHEET.
--- NOTE | 2019-12-19 19:15 | NUR ---
LAB RESULTS CALLED TO DR WOODS, UPDATED ON STATUS, NEW ORDERS RECEIVED.
--- NOTE | 2019-12-19 19:30 | NUR ---
DR ESPITIA SPOKE WITH, UPDATED ON STATUS. NEW ORDERS RECEIVED.
[2019-12-19 19:48] LABS: HEMATOCRIT 17.5 % (42.0-54.0); HEMOGLOBIN 5.5 g/dL (13.5-17.5)
[2019-12-19 20:00] LABS: INR 3.58 (0.85-1.17); PROTIME 35.1 SECONDS (11.6-15.0)
--- NOTE | 2019-12-19 21:00 | NUR ---
PT UNRESPONSIVE AT THIS TIME, TEMP 96.2, MARSHAL RASMUSSEN
[2019-12-19 21:55] LABS: HEMATOCRIT 21.4 % (42.0-54.0); HEMOGLOBIN 6.7 g/dL (13.5-17.5)
[2019-12-19 22:05] LABS: INR 2.53 (0.85-1.17); PROTIME 26.8 SECONDS (11.6-15.0)
--- NOTE | 2019-12-19 23:00 | NUR ---
REASSESSMENT COMPLETED, SEE FLOWSHEET.
[2019-12-20] VITALS (26 sets, daily range): BP systolic 96–127; BP diastolic 52–72; Ht 193 cm; Wt 116.7 kg
--- NOTE | 2019-12-20 01:00 | NUR ---
DR WOODS PAGED REGARDING LAB RESULTS, NEW ORDERS RECEIVED.
[2019-12-20 01:36] LABS: HEMATOCRIT 21.4 % (42.0-54.0)
[2019-12-20 01:37] LABS: HEMOGLOBIN 6.9 g/dL (13.5-17.5)
--- NOTE | 2019-12-20 03:00 | NUR ---
REASSESSMENT COMPLETED, SEE FLOWSHEET.
[2019-12-20 04:42] LABS: HEMATOCRIT 26.1 % (42.0-54.0); HEMOGLOBIN 8.4 g/dL (13.5-17.5)
--- NOTE | 2019-12-20 05:00 | NUR ---
PT FAMILY AT BEDSIDE, UPDATED ON STATUS.
[2019-12-20 06:33] LABS: BASOPHILS 0.1 % (0-2); EOSINOPHILS 0.1 % (0-7); HEMATOCRIT 24.6 % (42.0-54.0); HEMOGLOBIN 8.3 g/dL (13.5-17.5); IMMATURE GRANULOCYTES 0.7 % (0-5); LYMPHOCYTES 9.7 % (15-50); MCH 28.8 pg (26.0-34.0); MCHC 33.7 g/dL (31.0-37.0); MEAN PLATELET VOLUME 9.7 fL (7.4-10.4); NEUTROPHILS 78.4 % (40-80); PLATELET COUNT 115 10x3/uL (130-400); RDW 15.9 % (11.5-14.5); WBC 15.7 10x3/uL (4.8-10.8)
[2019-12-20 06:34] LABS: MCV 85.4 fL (80.0-100.0); RBC 2.88 10x6/uL (4.20-6.10)
[2019-12-20 06:48] LABS: INR 2.33 (0.85-1.17); PROTIME 25.2 SECONDS (11.6-15.0)
[2019-12-20 06:57] LABS: ALBUMIN 2.4 g/dL (3.4-5.0); ANION GAP 22.9 mmol/L (8-16); BILIRUBIN - TOTAL 15.98 mg/dL (0.2-1.3); CALCIUM 8.7 mg/dL (8.5-10.1); CARBON DIOXIDE 15.7 mmol/L (21.0-32.0); MAGNESIUM - SERUM 2.1 mg/dL (1.8-2.4); PHOSPHOROUS 5.1 mg/dL (2.5-4.9); POTASSIUM - SERUM 4.6 mmol/L (3.5-5.1); PROTEIN - SERUM 4.5 g/dL (6.4-8.2)
[2019-12-20 06:59] LABS: CREATININE - SERUM 2.2 mg/dL (0.6-1.3)
--- NOTE | 2019-12-20 07:15 | NUR ---
REPORT RECEIVED. ASSESSMENT COMPLETE PER FLOW SHEET. VSS. PT RESTING COMFORTABLY WILL CONTINUE TO MONITOR
--- NOTE | 2019-12-20 11:15 | NUR ---
REASSESSMENT COMPLETE PER FLOW SHEET. VSS. PT RESTING COMOFRTABLYWILL CONTINUETO MONITOR
[2019-12-20 13:22] LABS: HEMATOCRIT 24.9 % (42.0-54.0); HEMOGLOBIN 8.4 g/dL (13.5-17.5)
[2019-12-20 14:45] LABS: PROTIME 30.1 SECONDS (11.6-15.0)
--- NOTE | 2019-12-20 15:25 | NUR ---
REASSESSMENT COMPLETE, NO CHANGES NOTED, PT RESTING COMFORTABLY, VSS, CALL LIGHT IN REACH
[2019-12-20 15:44] LABS: INR 2.93 (0.85-1.17)
--- NOTE | 2019-12-20 17:00 | NUR ---
COMPLETE BATH AND LINEN CHANGE, PT TOLERATED WELL
--- NOTE | 2019-12-20 19:05 | NUR ---
PT IS RESTING IN BED WITH EYES CLOSED. HE ONLY RESPONDS TO PAIN WITH INCOMPREHENSABLE WORDS. HE BARELY OPENS EYES. VSS AT THIS TIME. HE IS VERY JAUNDICE AND SWOLLEN. SC IV TO THE RIGHT CHEST CDI. REPOSITONED AT THIS TIME FOR COMFORT. WILL PERFORM FULL ASSESMENT AND DOC IN FLOW SHEET. OCAMPO CATHEOTR IS DRAINING DARK TAMARA URINE. BED IS LOW,SIDE RAISLX2,CALL LIGHT WITHIN REACH. WILL CONINTUE TO MONITOR. BED ALARM IS ON
[2019-12-20 19:21] LABS: HEMATOCRIT 23.8 % (42.0-54.0); HEMOGLOBIN 8.1 g/dL (13.5-17.5)
[2019-12-20 19:30] LABS: INR 3.37 (0.85-1.17); PROTIME 33.5 SECONDS (11.6-15.0)
--- NOTE | 2019-12-20 20:32 | NUR ---
CALLED AND GAVE SECURITY CODE. UPDATED HER ON HER . [facility]
--- NOTE | 2019-12-20 21:40 | NUR ---
PT IS RESTING IN BED WITH EYES CLOSED. VSS. REPOSITONED FOR COMFORT. BED IS LOW,SIDE RAISLX2,CALL LIGHT WITHIN REACH. WILL CONITNUE TO [facility]
--- NOTE | 2019-12-20 23:15 | NUR ---
PT IS RESTING IN BED WITH EYES CLOSED. VSS. WHEN CALLING OUT NAME HE OPENS HIS EYES. STILL WILL NOT USE WORDS TO TALK. HE RESPONDE TO PAINFUL STIMULI. WILL PERFORM RE-ASSESSMNET AND DOC. BED IS LOW,SIDE RAILSX2,CALL LIGHT WITHIN ERACH. BED ALARM IS ON
[2019-12-21] VITALS (19 sets, daily range): BP systolic 90–148; BP diastolic 46–93
[2019-12-21 01:10] LABS: HEMATOCRIT 23.7 % (42.0-54.0)
[2019-12-21 01:33] LABS: INR 3.57 (0.85-1.17)
--- NOTE | 2019-12-21 01:42 | NUR ---
PT IS RESTING IN BED WITH EYES CLOSED. VSS. REPOSITONED FOR COMFORT. PT TOLERATED WELL. BED IS LEFT LOW,SIDE RAISLX2,CALL LIGTH WITHIN REACH. BED ALARM IS ON
--- NOTE | 2019-12-21 03:20 | NUR ---
PT IS RESTING IN BED WITH HANDS UP BY FACE. HE IS STILL VERY DISORIENTED AND WILL ONLY SAY YES OR NO WHEN ASKED SOME QUESTIONS NOT ALL. HE SAYS "NO" WHEN ASKED IF IN ANY PAIN. WILL PERFORM RE-ASSESSMENT AT THIS TIME. VSS. REPOSITIONED FOR COMFORT TO RIGHT SIDE. BED IS LOW,SIDE RAISLX2,CALL LIGHT WITHIN REACH. [facility]ARM IS [facility]
[2019-12-21 03:47] LABS: LYMPHOCYTES 11.7 % (15-50); MCHC 34.6 g/dL (31.0-37.0); MCV 86.6 fL (80.0-100.0); MEAN PLATELET VOLUME 9.8 fL (7.4-10.4); NEUTROPHILS 82.6 % (40-80); RBC 2.77 10x6/uL (4.20-6.10); RDW 19.2 % (11.5-14.5); WBC 12.2 10x3/uL (4.8-10.8)
[2019-12-21 03:48] LABS: HEMATOCRIT 28.4 % (42.0-54.0); PLATELET COUNT 109 10x3/uL (130-400)
[2019-12-21 04:08] LABS: ALBUMIN 2.4 g/dL (3.4-5.0); BILIRUBIN - TOTAL 17.51 mg/dL (0.2-1.3); CALCIUM 8.1 mg/dL (8.5-10.1); CREATININE - SERUM 1.9 mg/dL (0.6-1.3); MAGNESIUM - SERUM 2.5 mg/dL (1.8-2.4); POTASSIUM - SERUM 4.7 mmol/L (3.5-5.1); PROTEIN - SERUM 4.4 g/dL (6.4-8.2)
[2019-12-21 04:12] LABS: CARBON DIOXIDE 29.7 mmol/L (21.0-32.0)
--- NOTE | 2019-12-21 05:58 | NUR ---
PT IS LAYING IN BED WITH ARM UP BY HIS HEAD. HE HAS PULLED OFF HIS O2 SENSOR FROM FORHEAD 3X NOW. IT WILL NOT READ ON HANDS. HE IS DISORIENTED COMPLETLY AND CANNOT SEEM TO FIND WORDS TO SPEAK. PROVIDED ORAL CARE AT THIS TIME. VSS. BED IS LOW,SIDE RAILSX2,CALL LGIHT WITHIN REACH. WILL CONINTUE TO MONITOR
[2019-12-21 07:55] LABS: HEMATOCRIT 24.3 % (42.0-54.0); HEMOGLOBIN 8.2 g/dL (13.5-17.5)
[2019-12-21 08:03] LABS: INR 4.02 (0.85-1.17); PROTIME 38.4 SECONDS (11.6-15.0)
--- NOTE | 2019-12-21 08:03 | NUR ---
PT CONFUSED. PULLING OFF MONITORING EQUIPMENT. REPLACED EQUIPMENT AND ALARMS SET. TEMP 96.8. WARMING BLANKET APPLIED.
--- NOTE | 2019-12-21 10:19 | NUR ---
CALLED AND STATES WISHES ARE TO HAVE [facility] TODAY. REPORTED TO JOHNNA WITH PATEL.
--- NOTE | 2019-12-21 13:40 | NUR ---
PT CRYING IN PAIN AND GRAMICING. REPOSITIONED AND IV DILAUDID GIVEN.
--- NOTE | 2019-12-21 20:38 | NUR ---
JUDY ACADEMIC ADVISING DIRECTOR, LEXIS ON UNIT FOR PT ADMIT.
--- NOTE | 2019-12-21 21:15 | NUR ---
PT , EDUARDO CALLED. PASSWORD PROVIDED, UPDATE GIVEN, AND ALL QUESTIONS ANSWERED.
--- NOTE | 2019-12-23 15:55 | MORECARE ---
CASE MANAGEMENT DISCHARGE SUMMARY PATIENT: SID WOLF UNIT: [id number] ADM DATE: 12/16/19 AGE: 59 : 56 SEX: M ROOM/BED: D.2308 AUTHOR: MERRILL ELIZABETH PHYSICIAN: REFERRING PHYSICIAN: TOMMY WOODS MD DATE OF SERVICE: 12/23/19 Discharge Plan Patient Name: SID WOLF Facility: [facility]:[place] : 1960 Planned Disposition: Anticipated Discharge Date: Discharge Date: 12/21/2019 Expected LOS: Initial Reviewer: [email or web address] Initial Review Date: 12/18/2019 Generated: 12/23/19 4:54 pm DCP- Discharge Planning Updated by [email or web address]: Beatriz Westfall on 12/18/19 3:[address] Patient Name: SID WOLF Admission Status: Urgent Accout number: [id number] Admission Date: 12-16-2019 : 1960 Admission Diagnosis:WEAKNESS Attending: TOMMY WOODS Current LOS: 2 Anticipated DC Date: Planned Disposition: Primary Insurance: TRIC[employer]ER Discharge Planning Comments: PATIENT AWAKE, ALERT AND ORIENTED TO PERSON AND PLACE. I DISCUSSED WITH HIM REHAB WHEN MEDICALLY STABLE. HE AGREES TO [facility]. MIL SIGNED AND PLACED ON CHART. Slot Floor Supervisor: Beatriz Westfall Appended by Beatriz Westfall on 12/18/2019 16:51 CDT: REFERRAL FAXED TO [facility] WITH [facility]. DCP- Discharge Planning Updated by [id number]: Beatriz Westfall on 12/18/19 3:[address] Patient Name: SID WOLF Admission Status: Urgent Accout number: [id number] Admission Date: 12-16-2019 : 1960 Admission Diagnosis:WEAKNESS Attending: TOMMY WOODS Current LOS: 2 Anticipated DC Date: Planned Disposition: Primary Insurance: TRICAREER Discharge Planning Comments: PATIENT'S CALLED AND WOULD LIKE TO USE [facility] FOR HALF-WAY CARE. HE HAS BEEN CONFUSED TODAY AND JUST NOW RESTING. CM WILL TALK WITH PATIENT ABOUT SNF TOMORROW. Slot Floor Supervisor: Beatriz Westfall DCP- Discharge Planning Updated by [email or web address]: Beatriz Westfall on 12/18/19 11:[address] Patient Name: SID WOLF Admission Status: Urgent Accout number: [id number] Admission Date: 12-16-2019 : 1960 Admission Diagnosis:WEAKNESS Attending: TOMMY WOODS Current LOS: 2 Anticipated DC Date: Planned Disposition: Primary Insurance: TRICAREER Discharge Planning Comments: PATIENT IS CONFUSED. CM MET WITH HIS EDUARDO WOLF TODAY ABOUT DC PLANNING/NEEDS. SHE STATES HE HAS HAD MANY FALLS AND SHE IS UNABLE TO CARE FOR HIM AT HOME ANYMORE. SHE STATES SHE WOULD LIKE HIM TO GO TO SNF AND THEN HE IS SCHEDULED TO SEE A LIVER DOCTOR NEXT MONTH. I GAVE HER A LIST OF NURSING AND REHAB FACILITIES IN THE ARE WHERE SHE LIVES. I ALSO GAVE HER BROCHURES FOR DIFFERENT NURSING AND REHAB FACILLITIES. I GAVE HER MY PHONE NUMBER AND SHE WILL LET ME KNOW WHAT SNF SHE WOULD LIKE TO USE. CM TO FOLLOW AND ASSIST NEEDED. Slot Floor Supervisor: Beatriz Westfall DCPIA - Discharge Planning Initial Assessment Updated by [email or web address]: Beatriz Westfall on 12/18/19 12:36 pm * Is the patient Alert and Oriented? No * PCP FARO * Pharmacy [facility] * Preadmission Environment Home with Family * ADLs Partial Dependent * Other Equipment SHOWER CHAIR, WALKER * List name and contact numbers for known caregivers / representatives who currently or will assist patient after discharge: SAI CLARK, * Community resources currently utilized Home Health * Please name any agencies selected above. [facility] * Additional services required to return to the preadmission environment? Yes * Can the patient safely return to the preadmission environment? No * Has this patient been hospitalized within the prior 30 days at any hospital? Yes Coverage Notice Reviewer: [id number] - Beatriz Westfall Notice Issued Date-Time: 12/18/2019 16:45 Notice Type: Patient Choice Letter Notice Delivered To: Patient Relationship to Patient: Product Blending Supervisor Name: Delivery Method: HAND - Hand Delivered Laura Days: Prior Verbal Notification: Recipient Understood Notice: Yes Recipient Signature: Yes Med Rec Note Co-signed by Attending: Coverage Notice Comment: [facility] FOR SNF. Last DP export: 12/18/19 3:53 p Patient Name: SID WOLF Page 14155 at 1555 All edits/amendments must be made on the electronic document DICTATION DATE: 12/23/191553 VIOLIN MECHANIC: ANGELES 12/23/191553 RPT#: [id number] DC DATE:12/21/19 STATUS: DIS IN [facility] [address] [place] [address] END OF REPORT
== END 2019-12-21 21:56 | disposition hospice, inpatient (51) | DRG 432 ==
LOC: D.ICU 13:56 → D.MS 13:56 → D.ICU 12-19 08:41 → D.SDCHOLD 12-20 15:39 → D.ICU 12-20 15:40
PROVIDERS: ADMIT Internal Medicine Nephrology; ATTEND Internal Medicine Nephrology
PROC: 05H533Z Insertion of Infusion Device into Right Subclavian Vein, Percutaneous Approach (ICD-10-PCS; principal; 2019-12-19)
DX: K70.30 Alcoholic cirrhosis of liver without ascites (principal); K72.00 Acute and subacute hepatic failure without coma; D65 Disseminated intravascular coagulation [defibrination syndrome]; E43 Unspecified severe protein-calorie malnutrition; G93.41 Metabolic encephalopathy; E87.1 Hypo-osmolality and hyponatremia; D62 Acute posthemorrhagic anemia; E87.2 Acidosis; Z68.1 Body mass index [BMI] 19.9 or less, adult; N17.9 Acute kidney failure, unspecified; N39.0 Urinary tract infection, site not specified; Z91.81 History of falling; R27.0 Ataxia, unspecified; J45.909 Unspecified asthma, uncomplicated; F17.200 Nicotine dependence, unspecified, uncomplicated

== ENCOUNTER 2019-12-21 21:40 | Inpatient (IN) | payer OTHER ==
[~2019-12-21] VITALS: Ht 193 cm; Wt 119.5 kg
[~2019-12-21 21:40] MED LIST changes: +PERCOCET 5-3251 TAB PO
[2019-12-21 22:30] VITALS: BP 159/71; BMI 32.1
--- NOTE | 2019-12-21 22:30 | NUR ---
HOSPICE ADMIT ASSESSMENT AND HISTORY COMPLETE, HR ST ON CM, PT RESTLESS AND AGITATED, REPOSITIONED FOR COMFORT-ORAL CARE PROVIDED, DECREASE NOTED IN AGITATION, WILL MONITOR.
[2019-12-22 03:00] VITALS: BP 129/71
--- NOTE | 2019-12-22 04:00 | NUR ---
PT RESTING IN BED WITH EYES CLOSED, BREATHING EVEN AND UNLABORED, HR ST ON CM, VSS. AROUSES EASILY TO VERBAL AND TACTILE STIMULATION, DRIFTS BACK TO SLEEP QUICKLY, NO S/S OF RESTLESSNESS OR PAIN NOTED AT THIS TIME.
--- NOTE | 2019-12-22 06:07 | NUR ---
PT RESTLESS, ATTEMPTING TO PULL O2 OFF AND PULL AT RT IJ CVL, ATTEMPTS TO REORIENT UNSUCCESSFUL. PRN 1MG ATIVAN ADMINISTERED VIA SIVP PER MD ORDER-WILL MONITOR FOR DESIRED EFFECT.
[2019-12-22 07:00] VITALS: BP 131/75
--- NOTE | 2019-12-22 08:05 | NUR ---
0700 REPORT RECIEVED AND CARE ASSUMED OF PATIENT.. PT IS HISPICE CARE AWAITING ROOM ON FLOOR.. SEE FLOW SHEET FOR ASSESMENT FINGINGS..
--- NOTE | 2019-12-22 11:19 | NUR ---
0900 MEDS GIVEN.. STABLE VS 1000 DR SLOAN IN TO SEE PATIENT..CXR DONE... ORDER TO SET UP FOR BRONCH RECIEVED... RT INFORMED... 1015 SON CALLED INTO UNIT AND UDPATE GIVEN.. 1045 BRONCH DONE AT BEDSIDE BY DR AND RT.. PT TOLERATED WELL.. LASIX GIVEN PER ORDER..
--- NOTE | 2019-12-22 11:31 | NUR ---
0567 DR WOODS IN TO SEE PATIENT.. UPDATE GIVEN...
--- NOTE | 2019-12-22 11:36 | NUR ---
0900 JERRY WITH HOSPICE CARE IN TO SEE PATIENT ORDER RECIEVED.. 1000 CALLED UNIT.. UPDATE GIVEN.. WAITING ON ROOM ON FLOOR.. 1100 WIHTOUT CHANGES... REMAINS IN THE ICU...
--- NOTE | 2019-12-22 12:37 | NUR ---
1230 IN TO SEE PATIENT.. UPDATE GIVEN ANDF ATIVAN 1MG GIVEN FOR RESTLESSNESS..
--- NOTE | 2019-12-22 14:32 | NUR ---
1330 PT VERY RESTLESS WITH AT BEDSIDE.. ATIVAN GIVEN.. AND RESTLESSNESS CONTINUES.. CALLED JUDY AND ORDER RECIEVED FOR SCHEDULED BID 1 MG DOSE OF ATIVAN ALONG WITH PRN DOSES.. 1430 DRESSING CHANGES DONE TO CVL AND PT TRANSFERED TO 2211 VIA BED AFTER REPORT IS CALLED TO NURSE..
--- NOTE | 2019-12-22 14:43 | NUR ---
RCVED PT FROM ICU VIA HOSPITAL BED, ICU NURSE AND AT THE BEDSIDE. V/S STABLE. SUBCLAVIAN CENTRAL LINE PRESENT, RUNNING NS AND MORPHINE. PT IS NONVERBAL. FAMILY DENIES NEEDS AT THIS TIME, WILL CONT TO MONITOR.
[2019-12-22 16:00] VITALS: BP 131/67
[2019-12-22 20:00] VITALS: BP 134/68
--- NOTE | 2019-12-22 22:33 | NUR ---
RESTING QUIELTY WITH NO DISTRESS NOTED. RESP EVEN AND UNALBOED. BRANDING MACHINE TENDER MORPHINE IN USE FOR PAIN CONTROL CONTINOUS @ 1 MG/HR. IV TO RIGHT SC WITH NO REDNESS OR EDEMA NOTED. TURNED AT POSITIONED. CL IN REACH
--- NOTE | 2019-12-23 01:47 | NUR ---
I have reviewed this patient and I concur with the Shift Assessment completed by the Licensed Practical Nurse today this shift.
--- NOTE | 2019-12-23 07:10 | NUR ---
PATIENT RESTING IN BED, NON-VERBAL. ON HOSPICE. DNR. BRUISING TO WHOLE RIGHT SIDE OF THE BODY. SCDS. NO S/S OF PAIN. NO S/S OF ACUTE DISTRESS NOTED. RLE AND LUE EDEMA. ON BEDREST. CENTRAL LINE TO RIGHT CHEST, NS INFUSING @ 10 ML/HR AND MORPHINE TUTOR COORDINATOR 1MG CONTINUOUS. SITE PATENT WITHOUT REDNESS OR SWELLING. ON 2L O2, NC. CALL LIGHT IN REACH. BED IN LOWEST POSITION. WILL CONTINUE TO MONITOR.
[2019-12-23 09:07] VITALS: BP 146/83
[2019-12-23 12:36] VITALS: Ht 193 cm; Wt 119.5 kg
--- NOTE | 2019-12-23 18:17 | NUR ---
RESTING IN BED COMFORTABLY. RESPIRATIONS 4. NO S/S OF ACUTE DISTRESS NOTED. ON COMFORT CARE. WILL CONTINUE TO MONITOR.
--- NOTE | 2019-12-23 18:20 | NUR ---
I have reviewed this patient and I concur with the Shift Assessment completed by the Licensed Practical Nurse today this shift.
[2019-12-23 20:37] VITALS: BP 154/80
--- NOTE | 2019-12-23 20:44 | NUR ---
REC'D CHGE OF SHIFT WALKING ROUNDS IN BED LYING ON RIGHT SIDE.LETHARGIC NON RESPONSIVE TO VERBAL STIMULI.GENERALIZED JAUNDICE,BRUISING OBSERVED. 02 2L NC REAPPLIED. HOSPICE NURSE ANTON HUSSEIN RN CALLED CHECKING ON PATIENT SINCE CHGE IN MEDS.CONTINUOUS MORPINE IV DRIP CONTINUES AT 1.5MG COMFORT MEASURES CONTINUES PER HOSPICE PROTOCOL.
[2019-12-24 00:50] VITALS: BP 134/85
[2019-12-24 06:48] VITALS: BP 130/76
--- NOTE | 2019-12-24 07:05 | NUR ---
RESTING COMFORTABLY. COMFORT CARE/HOSPICE. BEDREST. JAUNDICE SKIN COLOR. BRUISING ALL OVER BODY. OCAMPO CATHETER PRESENT, DARK URINE. CENTRAL LINE TO RIGHT CHEST, NS INFUSING @ 10 AND MORPHINE APPEALS NURSE CONTINUOUS @ 1.5. CALL LIGHT IN REACH. WILL CONTINUE TO MONITOR.
[2019-12-24 08:24] VITALS: BP 186/75
--- NOTE | 2019-12-24 18:50 | NUR ---
RESTING IN BED COMFORTABLY. FAMILY AT BEDSIDE. NO S/S OF ACUTE DISTRESS NOTED. WILL CONTINUE TO MONITOR.
--- NOTE | 2019-12-24 19:51 | NUR ---
I have reviewed this patient and I concur with the Shift Assessment completed by the Licensed Practical Nurse today this shift.
[2019-12-24 20:57] VITALS: BP 78/34
--- NOTE | 2019-12-25 07:33 | MORECARE ---
CASE MANAGEMENT DISCHARGE SUMMARY PATIENT: SID WOLF UNIT: [id number] ADM DATE: 12/21/19 AGE: 59 : 56 SEX: M ROOM/BED: D.2212 AUTHOR: MERRILL ELIZABETH PHYSICIAN: REFERRING PHYSICIAN: SULEMA CHANDRA MD DATE OF SERVICE: 12/25/19 Discharge Plan Patient Name: SID WOLF [facility] [facility] 1960 Planned Disposition: Hospice Medical Facility Anticipated Discharge Date: Discharge Date: 12/24/2019 Expected LOS: 0 Initial Reviewer: [email or web address] Initial Review Date: 12/21/2019 Generated: 12/25/19 8:33 am Patient Name: SID WOLF Page 66813 at 0733 All edits/amendments must be made on the electronic document DICTATION DATE: 12/25/1933 PRIVATE DUTY LPN: ANGELES 12/25/19 0733 RPT#: [id number] DC DATE:12/24/19 STATUS: DIS IN [facility] [address] [facility] [place] [address] END OF REPORT
== END 2019-12-24 21:00 | DRG 951 ==
LOC: D.ICU 21:40 → D.MS 22:07
PROVIDERS: ADMIT Legal Medicine; ATTEND Legal Medicine
DX: Z51.5 Encounter for palliative care (principal)